=== PATIENT | female | born 1955 | race Caucasian/White ===

== ENCOUNTER → 2017-10-14 | Outpatient (CLI) | payer MEDICARE, MEDICAID ==
[~2017-10-14] MED LIST: ADULT LOW DOSE81 MG PO; ALDACTONE25 MG PO; AMITRIPTYLINE H25 M3 PO; ASPIRIN325 PO; ASPIRIN81 M2 PO; BELVIQ10 MG PO; BENAZEPRIL 10 M10 MG PO; BENAZEPRIL HCL10 MG PO; BENAZEPRIL HCL20 MG; BENAZEPRIL HCL40 MG PO; BENAZEPRIL HCL5 MG PO; CARVEDILOL12.5 MG; CARVEDILOL12.5 MG PO; CARVEDILOL25 MG PO; CELEXA40 MG PO; COLACE100 MG; COREG PO; CYMBALTA60 MG PO; DYAZIDE 37.5-21 EACH PO; EFFEXOR XR75 MG PO; FISH OIL 1,001000 MG PO; FISH OIL PO; FOLIC ACID1 MG PO; FUROSEMIDE 20 M20 MG PO; FUROSEMIDE 40 M40 MG PO; GABAPENTIN 100100 MG PO; GLUCOPHAGE1000 MG; GLUCOPHAGE1000 MG PO; GUAIFENESIN/COD10 M1 PO; HUMALOG100 UNIT/1; HYDRALAZINE 5050 MG; HYDROCHLOROTHIA25 M1 PO; HYDROCODON-ACE1 EAC5 PO; IMDUR 30 MG TAB30 M1 PO; INVOKANA100 MG PO; JANUMET 50-1,01 EACH PO; JANUVIA 50 MG T50 M1 PO; JANUVIA100 MG PO; K-DUR10 ME1; LANTUS SQ; LANTUS SUBQ; LASIX 40 MG TAB40 M1 PO; LASIX 40 MG TAB40 M2 PO; LEVAQUIN 250 M250 MG PO; LEVAQUIN 500 M500 M2 PO; LEVEMIR; LEVEMIR SUBQ; LIDODERM 5%1 PATC1 TOP; LIDODERM 5%1 PATC1 TRANSDERM; LIPITOR80 MG PO; LOSARTAN POTASS25 MG PO; LOVASTAT20 PO; LOVASTATIN 20 M20 MG PO; LYRICA 75 MG CA75 MG PO; MEVACOR 20 MG T20 MG PO; NAPROXEN DELAY500 M1 PO; NEURONTIN 300300 M1 PO; NEURONTIN600 MG PO; NITROGLYCERIN0.4 MG SUBLING; NITROGLYCERIN4.1 GM SPRAY; NITROQUICK0.3 MG; NITROQUICK0.4 MG SL; NORCO 10-325 T1 EACH PO; NORVASC10 MG; NORVASC10 MG PO; NOVOLIN N100 UNIT/1 SQ; NOVOLIN N100 UNIT/3 SQ; NOVOLIN R100 UNIT/3 SQ; NOVOLOG; NOVOLOG MI100 UNIT/2; NOVOLOG100 UNIT/1; NOVOLOG100 UNIT/1 SUBQ; OMEGA-31000 M1 PO; OMEPRAZOLE40 MG PO; OXYCODONE HCL5 M1; PARICALCITOL1 MCG PO; PERCOCET 7.5-31 EACH PO; PLAVIX 75 MG TA75 M1 PO; POTASSIUM; POTASSIUM20 PO; PREDNISONE 10 M10 M1 PO; PREDNISONE 10 M10 MG PO; PRILOSEC40 MG PO; PROTONIX40 M1 PO; PROZAC 20 MG20 M1; PROZAC 20 MG20 M1 PO; RANITIDINE 150150 MG PO; SAVELLA50 MG PO; VENTOLIN HFA 1818 GM INH; VITAMIN D2000 UNIT PO; VITAMIN D32000 UNI1 PO; VITAMIN D35000 UNI1 PO; ZANTAC 150MG T150 M1 PO; ZANTAC 150MG T150 MG PO; ZEMPLAR1 MCG PO; hydrocodone
== END ==
LOC: M.RAD 08:41
DX: J18.9 Pneumonia, unspecified organism (principal); J44.9 Chronic obstructive pulmonary disease, unspecified; I50.9 Heart failure, unspecified; J40 Bronchitis, not specified as acute or chronic; I25.10 Atherosclerotic heart disease of native coronary artery without angina pectoris; G47.33 Obstructive sleep apnea (adult) (pediatric); Z87.891 Personal history of nicotine dependence; Z98.890 Other specified postprocedural states

== ENCOUNTER → 2018-02-03 | Outpatient (CLI) | payer MEDICARE, MEDICAID ==
[~2018-02-03] VITALS: Ht 162.6 cm; Wt 102.1 kg
[2018-02-03 07:44] VITALS: BP 197/87
[2018-02-03 08:02] LABS: HEMOGLOBIN 14.2 gm/dL (12.0-15.0); MCH 30.7 pg (26.0-34.0); MCHC 33.1 g/dL (28.0-37.0); MCV 92.5 fL (80.0-100.0); MPV 10.1 fl. (7.2-11.1); RBC 4.65 mil/uL (4.20-5.00); RDW-CV 13.8 % (10.5-14.5); WBC 11.9 thou/uL (4.0-11.0)
[2018-02-03 08:11] LABS: ANION GAP 8 mmol/L (7-16); APTT 26.8 Seconds (25.0-31.3); BUN 30 mg/dL (7-18); CALCIUM 9.3 mg/dL (8.5-10.1); CHLORIDE 101 mmol/L (98-107); CO2 29 mmol/L (21-32); CREATININE 1.8 mg/dL (0.6-1.3); GLUCOSE 283 mg/dL (70-99); INR 1.1; POTASSIUM 4.3 mmol/L (3.5-5.1); PROTIME 10.5 Seconds (9.20-11.50); SODIUM 138 mmol/L (136-145)
[2018-02-03 08:15] LABS: ALBUMIN 3.5 g/dL (3.4-5.0); ALKALINE PHOSPHATASE 84 U/L (46-116); CHOLESTEROL 170 mg/dL (<200); HDL CHOLESTEROL 33 mg/dL (>40); LDL CHOLESTEROL 95 mg/dL (<100); SGOT 15 U/L (15-37); SGPT 25 U/L (30-65); TC:HDL 5.2 Ratio (Not establshd); TOTAL BILIRUBIN 0.4 mg/dL (<0.1-1.0); TOTAL PROTEIN 7.3 g/dL (6.4-8.2); TRIGLYCERIDE 212 mg/dL (<150); VLDL 42 mg/dL (<40)
[2018-02-03 08:21] LABS: SERUM ASSESSMENT Clear
[2018-02-03 10:25] VITALS: BP 163/50
[2018-02-03 10:38] VITALS: BP 165/58
--- NOTE | 2018-02-03 10:39 | EKG ---
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1955 Requested By: Juarez Rangel Order Number: [id number] Reading MD: Juarez Rangel Measurements Intervals [place] Rate: 66 P: 56 WV: 163 QRS: 1 QRSD: 117 T: 160 QT: 460 QTc: 482 Interpretive Statements Sinus rhythm Ventricular premature complex Probable left atrial enlargement LVH with secondary repolarization abnormality Consider inferior infarct Compared to ECG 09/22/2014 09:02:18 Ventricular premature complex(es) now present Left ventricular hypertrophy now present Early repolarization now present Myocardial infarct finding now present ST (T wave) deviation no longer present Possible ischemia no longer present Prolonged QT interval no longer present Electronically Signed On 02-03-2018 10:39:00 CDT by Juarez Rangel [email or web address] <ELECTRONICALLY SIGNED> By: Juarez Rangel MD, [facility] 02/03/18 1039 0834 0834 Juarez Rangel MD, [facility] /EPI
[2018-02-03 10:55] VITALS: BP 167/67
[2018-02-03 11:09] VITALS: BP 138/53
[2018-02-03 11:31] VITALS: BP 152/71
--- NOTE | 2018-02-03 15:05 | CARD ---
[address] [address] CARDIAC CATH REPORT Name: CHHAYA ALVARADO [id number] Admission: 02/03/18 Attend Phys: Juarez Rangel MD Discharge: Date of : 53 Report #: [id number] THIS REPORT FOR: //name// APPROVED REPORT Study performed: 02/03/2018 07:44:38 Patient Details Patient Status: Out-Patient Room #: The patient is a 62 year-old female Event Personnel uJarez Rangel Small Offset Printer, Snehal Sheth RN Equipment Operator/Laborer/Supervisor, Juan Santiago (R) Dona Diaz James Monitor Procedures Performed Left Heart Cath Coronaries, Bypass Grafts Procedure Narrative A 6fr Ultimum Sheath sheath was inserted into the Right Femoral Artery. Coronary angiography was performed using coronary diagnostic catheters. The right coronary system was accessed and visualized with a Diagnostic JR4 catheter. The left coronary system was accessed and visualized with a Diagnostic JL4 catheter. The left ventricle was accessed and visualized with a Diagnostic Angled Pigtail catheter. Closure device was deployed with a 6 Fr Mynx. The patient tolerated the procedure well and there were no complications associated with the procedure. Intraoperative Conscious Sedation Sedation start time: 9:19 Case end Time: 10:11 Fentanyl 25 mcg Versed 1 mg Fluoro Time: 30.3 minutes Dose: DAP 638646 cGycm2 2491 mGy Contrast Type and Amount: Visipaque 140 ml [place] Artery Percent Stenosis Grafts (Complete if Previous CABG=Yes: Percent Stenosis) FERRELL to lad widely patent, no stenosis, distally LAD is small to medium and has no significant stenosis SVG to RCA PDA , PLB jumps is ectatic but no significant stenosis, 30-40 % diffusely, distal RCA PDA and PLB [place] [address] CARDIAC CATH REPORT Name: JENNYCHHAYASTARR MORALES Room: [facility]#: [id number] Admission: 02/03/18 Attend Phys: Juarez Rangel MD Discharge: Date of : 53 Report #: [id number] disease 50-70% , but are small vessels Diagnostic Cath Left Main normal LAD Occluded mid body, competitive graft flow seen Diagonal 1 larger, has mid body 60-70% longer stenosis Diagonal 2 small,normal Circumflex small to medium sized, non dominant , mid 80% OM1 very small normal OM2 very small normal Right Coronary occluded proximally Left Ventriculography Left Ventriculography was not performed. Ejection Fraction was 50-55% based off patient's Nuclear Cardiac Stress Test. root aortography shows no graft to LCX or diagonal vessel, no aneurysm or dissection present, no AI Hemodynamics The aortic pressure is 156/59 mmHg with a mean of 93 mmHg. The left ventricular pressure is 150/9 mmHg with a mean of mmHg. The left ventricular end diastolic pressure is 19 mmHg. Conclusion 1. severe akhiok disease, occluded RCA and LAD 2. moderate to severe disease of ungrafted diagonal 60-70% 3. severe akhiok ,unprotected akhi[place] LCx, but vessel is nondominant and small to medium sized 4. Patent FERRELL to LAD 5. Patent SVG to PDA, PLB of RCA distally Recommend medical management for CAD Recommendations Smoking Cessation Aggressive Medical Therapy <ELECTRONICALLY SIGNED> By: Juarez Rangel MD, FACC 02/03/18 1505 1505 1505Juarez Rangel MD, FACC /INF
== END | disposition home or self-care (01) ==
LOC: M.CL 07:19
PROVIDERS: Internal Medicine Cardiovascular Disease
DX: I25.10 Atherosclerotic heart disease of native coronary artery without angina pectoris (principal); J44.9 Chronic obstructive pulmonary disease, unspecified; Z88.8 Allergy status to other drugs, medicaments and biological substances; Z79.82 Long term (current) use of aspirin; Z79.899 Other long term (current) drug therapy; Z79.01 Long term (current) use of anticoagulants

== ENCOUNTER 2018-03-06 10:01 | Inpatient (IN) | payer MEDICARE, MEDICAID ==
[~2018-03-06] VITALS: Ht 162.6 cm; Wt 102.1 kg
[~2018-03-06 10:01] MED LIST changes: -ZANTAC 150MG T150 MG PO
[2018-03-06] MEDS ORDERED: ZANTAC 150MG T150 MG PO (11:20)
[2018-03-06 11:37] LABS: ABSOLUTE BASOPHILS 0.1 thou/uL (0.0-0.2); ABSOLUTE EOSINOPHILS 0.2 thou/uL (0.0-0.7); ABSOLUTE LYMPHOCYTES 2.7 thou/uL (0.8-5.3); ABSOLUTE MONOCYTES 0.6 thou/uL (0.0-1.2); ABSOLUTE NEUTROPHILS 7.5 thou/uL (1.6-8.1); BASOPHILS 0.8 %; EOSINOPHILS 1.9 %; HEMATOCRIT 43.8 % (37.0-47.0); HEMOGLOBIN 14.5 gm/dL (12.0-15.0); LYMPHOCYTES 24.1 %; MCH 30.5 pg (26.0-34.0); MCHC 33.1 g/dL (28.0-37.0); MCV 92.3 fL (80.0-100.0); MONOCYTES 5.8 %; MPV 9.8 fl. (7.2-11.1); NUCLEATED RBCS 0 /100WBC; PLATELET COUNT* 192 thou/uL (150-400); POLYS 67.4 %; RBC 4.75 mil/uL (4.20-5.00); RDW-CV 14.3 % (10.5-14.5); WBC 11.1 thou/uL (4.0-11.0)
[2018-03-06 11:53] LABS: CALCIUM 9.4 mg/dL (8.5-10.1); CREATININE 1.8 mg/dL (0.6-1.3); POTASSIUM 4.9 mmol/L (3.5-5.1)
[2018-03-06 12:00] VITALS: BP 124/53
[2018-03-06 16:10] LABS: HEMATOCRIT 38.7 % (37.0-47.0); HEMOGLOBIN 12.9 gm/dL (12.0-15.0); MCH 30.8 pg (26.0-34.0); MCHC 33.3 g/dL (28.0-37.0); MCV 92.4 fL (80.0-100.0); MPV 9.9 fl. (7.2-11.1); RBC 4.19 mil/uL (4.20-5.00); RDW-CV 14.3 % (10.5-14.5); WBC 15.9 thou/uL (4.0-11.0)
[2018-03-06 16:14] LABS: POTASSIUM 4.7 mmol/L (3.5-5.1)
[2018-03-06 17:00] VITALS: BP 143/54
--- NOTE | 2018-03-06 17:34 | NUR ---
PATIENT ARRIVED TO ICU AT 1640. NO PAIN REPORTED, NO NAUSEA OR SHORTNESS OF AIR. AXOX4, ASSESSMENT CHARTED. FAMILY AT BEDSIDE. ALL QUESTIONS ANSWERED. ORIENTED TO ROOM AND CALL LIGHT. NO CONCERNS VOICED AT THIS TIME. EDUCATED PATIENT THAT SHE NEEDS TO URINATE WITHIN 8 HOURS POST SURGERY, INCISION LOOKS CLEAN, DRY AND INTACT. SITTING UP, EATING DINNER AT THIS TIME. BED IN LOWEST POSITION, SOLAR SALES AMBASSADOR IN PLACE, VITALS WNL.
[2018-03-06 21:00] VITALS: BP 131/60
[2018-03-06 22:00] VITALS: BP 123/53
[2018-03-07 02:00] VITALS: BP 127/61
[2018-03-07 04:00] VITALS: BP 122/58
[2018-03-07 05:32] LABS: HEMATOCRIT 37.8 % (37.0-47.0); HEMOGLOBIN 12.5 gm/dL (12.0-15.0); MCH 30.6 pg (26.0-34.0); MCV 92.7 fL (80.0-100.0); MPV 10.6 fl. (7.2-11.1); RBC 4.08 mil/uL (4.20-5.00); WBC 17.1 thou/uL (4.0-11.0)
[2018-03-07 05:50] LABS: ALBUMIN 2.9 g/dL (3.4-5.0); CALCIUM 8.3 mg/dL (8.5-10.1); CREATININE 1.7 mg/dL (0.6-1.3); POTASSIUM 5.3 mmol/L (3.5-5.1); TOTAL BILIRUBIN 0.4 mg/dL (<0.1-1.0); TOTAL PROTEIN 6.4 g/dL (6.4-8.2)
--- NOTE | 2018-03-07 07:17 | NUR ---
PATIENT PROGRESSING TOWARDS GOALS. DENIES PAIN OR N &V. PT LEFT CAROTID SITE WELL APPROXIMATED, MINIMAL SWELLING AND BRUSING PRESENT. PT WAS ABLE TO GET TO BEDSIDE COMMODE THIS A.M SHE DID VOID. ART LINE D/C. BP WNL. BED TO LOWEST POSITION, CALL LIGHT WITHIN RANGE. NO FURTHER COMPLAINTS AT THIS TIME.
[2018-03-07 09:09] VITALS: BP 143/56
[2018-03-07 09:11] VITALS: BP 143/56
[2018-03-07 11:17] VITALS: BP 143/56
[2018-03-07 12:00] VITALS: BP 120/50
--- NOTE | 2018-03-07 12:35 | NUR ---
CM SPOKE TO THE PATIENT TO DISCUSS HOME SITUATION, DISCHARGE PLANNING, AND TO INFORM OF THE ROLE OF CM. PATIENT ALERT, ORIENTED, AND INDEPENDENT WITH ADL'S. PATIENT RESIDES AT HOME WITH HER 17 YEAR OLD GRANDSON. 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 PATIENT HAS HOME 02 AND A CPAP FOR HOME USE, BUT COULD NOT RECALL WHO HER O2 PROVIDER IS ([facility]). PATIENT USES NO OTHER DME. RN IN-CHARGE OF PATIENT INFORMS THAT D/C ORDERS HAVE BEEN WRITTEN AND HH IS NEEDED. CM INFORMED THE PATIENT OF THIS INFO AND SHE AGREES TO HAVE HH SETUP. CM WILL REMAIN AVAILABLE TO ASSIST AND FOLLOW NEEDED.
--- NOTE | 2018-03-07 14:15 | NUR ---
PT DISCHARGED HOME WITH HOME HEALTH. HOME O2 2L NC PLACED PRIOR TO LEAVING. IV ACCESS X2 REMOVED. COPY OF DISCHARGE PAPERWORK AND A PRESCRIPTION FOR NORCO GIVEN TO PT WITH EXPLAINATION. PT VERBALIZD UNDERSTANDING. ESCORTED PER WHEELCHAIR PER THIS NURSE TO HER MOTHERS' VEHICLE.
--- NOTE | 2018-03-10 17:15 | OP ---
[facility] [address] [place] [address] OPERATIVE REPORT Name: CHHAYA ALVARADO Room: [address] IN M.R.#: [id number] Admission: 03/06/18 Attend Phys: Gabrielle Kent Discharge: 03/07/18 Date of : 53 Report #: [id number] THIS REPORT FOR: //name// CC: Zachery Isaac DATE OF SERVICE: 03/06/2018 PREOPERATIVE DIAGNOSIS: Severe left internal carotid artery stenosis. POSTOPERATIVE DIAGNOSIS: Severe left internal carotid artery stenosis. PROCEDURE: 1. Left carotid endarterectomy with patch angioplasty using bovine pericardial patch. 2. Intraoperative ultrasound with interpretation. FINDINGS ON ULTRASOUND: 1. Normal waveform velocity identified in the common and internal carotid arteries. 2. Patent flow identified in the external carotid artery on malik-scale imaging. 3. No flaps or defects identified in the posterior wall on malik-scale imaging. SURGEON: Zachery Hanks MD. V BELT INSPECTOR: None. ANESTHESIA: General. COMPLICATIONS: None. ESTIMATED BLOOD LOSS: 150 mL. SPECIMEN: Plaque. INDICATION FOR PROCEDURE: The patient is a very pleasant 63-year-old white female with severe left internal carotid artery stenosis on ultrasound. We plan to proceed with left carotid endarterectomy today. Informed consent was obtained from the patient with risks including but not limited to bleeding, infection, need for further surgery, pain, , heart attack, stroke, cranial nerve injury. She understood these risks and was agreeable to proceed. DESCRIPTION OF PROCEDURE: The patient was taken to the OR and placed in supine position. After adequate general anesthesia was initiated, timeout was performed. The patient's left neck and chest were prepped and draped in usual sterile fashion. The patient received appropriate preoperative antibiotics. [address] [address] OPERATIVE REPORT Name: LASHANDA ALVARADOSTARR PEREZE Room: [address]#: [id number] Admission: 03/06/18 Attend Phys: Gabrielle Kent Discharge: 03/07/18 Date of : 53 Report #: [id number] The patient was heparinized throughout the critical portion of procedure. I created a transverse incision in the patient's left neck. Sharp and blunt dissection carried down along the anterior border of sternocleidomastoid muscle. I divided the facial vein between ties and clips. I entered the carotid sheath. I controlled the common carotid artery as well as the branches of the internal and external carotid artery. I created a longitudinal arteriotomy in the common carotid artery onto the internal carotid artery. There was a severely stenotic plaque at the origin of the left internal carotid artery. I performed endarterectomy in a standard fashion using a [place] elevator and a pair of pickups. I took time to remove all the bits and pieces of plaque from posterior wall. I performed eversion endarterectomy of the external carotid artery. I got a feathered edge leading into the internal carotid artery. I used a bovine pericardial patch and a running 6-0 Prolene suture to close my arteriotomy. At the completion of the repair, there was adequate hemostasis and excellent blood flow into the internal carotid artery. I performed intraoperative ultrasound findings noted above. I corrected the heparin with protamine, controlled bleeding as needed with electrocautery, Derrek ties and clips, closed the wound in multiple layers using 2-0 Vicryl, 3-0 Vicryl and Stratafix for skin. Incision was dressed with Dermabond. The patient tolerated the procedure well and was taken alert and awake to recovery room in good condition. All needle and instrument counts were correct at the end the case. <ELECTRONICALLY SIGNED> By: Zachery Hanks MD 03/10/18 1715 1526 1647Zachery Hanks MD /nt
--- NOTE | 2018-03-10 22:13 | PATH ---
[facility] [address] [place] [address] PATHOLOGY RPT PROCEDURE Name: ESTRELLA ALVARADO Room: [address] IN .R.#: [id number] Admission: 03/06/18 Date of : 53 Discharge: 03/07/18 Report #: [id number] Path Case #: [id number] LCA Accession Number: [id number] . 01 Material submitted: . LEFT CAROTID PLAQUE . 01 Clinical history: . Left carotid artery stenosis . 02 Diagnosis: Plaque, "left carotid artery plaque": - Calcification and atherosclerosis. . (SHA:mml; 03/10/18) QLM/03/10/2018 . 02 Electronically signed: . Festus Chan MD, Pathologist NPI- [id number] . 01 Gross description: . Received in formalin labeled "Estrella Alvarado, left carotid plaque," are multiple segments of yellow-no, rubbery soft tissue with attached granular, dark brown material measuring 2.5 x 2.3 x 1.1 cm in aggregate dimensions. Sectioning reveals partially calcified cut surfaces. The specimen is submitted representatively in cassette A1, following decalcification. (DAC; 03/09/2018) XDC/XDC . 02 Pathologist provided ICD-10: I65.22 . 02 CPT . 296510, 985571 Performed at: [address], [place] [id number] MD Gerardo Ramon MD Phone: [phone] Performed at: [address] [address] [place], [place] [id number] MD Ric Mc MD Phone: [phone]
== END 2018-03-07 14:00 | disposition home health service (06) | DRG 37 ==
LOC: M.PRE 10:01 → M.ICU 10:57 → M.TBA 10:57 → M.PRE 11:08 → M.ICU 16:40
PROVIDERS: Internal Medicine; Surgery Vascular Surgery; ADMIT Internal Medicine
PROC: 03UL0JZ Supplement Left Internal Carotid Artery with Synthetic Substitute, Open Approach (ICD-10-PCS; principal; 2018-03-06)
PROC: 03CL0ZZ Extirpation of Matter from Left Internal Carotid Artery, Open Approach (ICD-10-PCS; principal; 2018-03-06)
DX: I65.22 Occlusion and stenosis of left carotid artery (principal); J96.20 Acute and chronic respiratory failure, unspecified whether with hypoxia or hypercapnia; I13.0 Hypertensive heart and chronic kidney disease with heart failure and stage 1 through stage 4 chronic kidney disease, or unspecified chronic kidney disease; E44.1 Mild protein-calorie malnutrition; E78.00 Pure hypercholesterolemia, unspecified; M79.7 Fibromyalgia; F17.210 Nicotine dependence, cigarettes, uncomplicated; E11.22 Type 2 diabetes mellitus with diabetic chronic kidney disease; N18.3 Chronic kidney disease, stage 3 (moderate); J44.9 Chronic obstructive pulmonary disease, unspecified; G47.33 Obstructive sleep apnea (adult) (pediatric); Z99.81 Dependence on supplemental oxygen; Z79.899 Other long term (current) drug therapy; Z79.4 Long term (current) use of insulin; Z95.1 Presence of aortocoronary bypass graft; Z90.49 Acquired absence of other specified parts of digestive tract; Z90.710 Acquired absence of both cervix and uterus; Z98.1 Arthrodesis status

== ENCOUNTER → 2018-07-01 | Outpatient (CLI) | payer OTHER, MEDICAID ==
[~2018-07-01] MED LIST changes: +ZANTAC 150MG T150 MG PO
== END ==
LOC: M.RAD 09:22
DX: Z12.31 Encounter for screening mammogram for malignant neoplasm of breast (principal)

== ENCOUNTER → 2018-09-09 | Outpatient (CLI) | payer OTHER, MEDICAID | LOC: M.ULTRA 12:39 | DX: I70.203 Unspecified atherosclerosis of native arteries of extremities, bilateral legs (principal); E11.621 Type 2 diabetes mellitus with foot ulcer; I10 Essential (primary) hypertension; E78.00 Pure hypercholesterolemia, unspecified; J44.9 Chronic obstructive pulmonary disease, unspecified; Z79.4 Long term (current) use of insulin ==

== ENCOUNTER → 2019-01-07 | Outpatient (CLI) | payer OTHER, MEDICAID ==
[~2019-01-07] VITALS: Ht 162.6 cm; Wt 99.8 kg
[~2019-01-07] MED LIST changes: -NORCO 10-325 T1 EACH PO; +NORCO 5-325 TA1 EACH PO; +SENNA PLUS TAB1 EACH PO; +VANCO 1 GR1 GM/250 M IVPB
[2019-01-07 07:33] LABS: HEMATOCRIT 41.6 % (37.0-47.0); HEMOGLOBIN 13.9 gm/dL (12.0-15.0); MCH 30.3 pg (26.0-34.0); MCHC 33.3 g/dL (28.0-37.0); MPV 10.1 fl. (7.2-11.1); RBC 4.57 mil/uL (4.20-5.00); WBC 12.8 thou/uL (4.0-11.0)
[2019-01-07 07:39] LABS: CALCIUM 9.7 mg/dL (8.5-10.1); CREATININE 1.6 mg/dL (0.6-1.3); POTASSIUM 4.9 mmol/L (3.5-5.1)
[2019-01-07 07:41] LABS: APTT 27.3 Seconds (25.0-31.3); PROTIME 10.7 Seconds (9.20-11.50)
[2019-01-07 07:43] VITALS: BP 156/52
[2019-01-07 10:07] VITALS: BP 129/70
[2019-01-07 10:24] VITALS: BP 186/71
[2019-01-07 10:57] VITALS: BP 154/60
--- NOTE | 2019-01-07 12:45 | OP ---
[address] [address] OPERATIVE REPORT Name: JENNYCHHAYA CARMEN Room: [facility]#: [id number] Admission: 01/07/19 Attend Phys: Zachery Hanks MD Discharge: Date of : 53 Report #: [id number] THIS REPORT FOR: //name// CC: Zachery Isaac DATE OF SERVICE: 01/07/2019 PREOPERATIVE DIAGNOSES: Left superficial femoral artery stenosis with claudication. POSTOPERATIVE DIAGNOSES: Left superficial femoral artery stenosis with claudication. PROCEDURES: 1. Aortogram runoff, left lower extremity. 2. Left SFA angioplasty. 3. Second-order vessel cannulation, left lower extremity. 4. Ultrasound guidance for arterial access for right common femoral artery, with image saved. FINDINGS: 1. Aorta and iliac artery were widely patent bilaterally. 2. Incidental SMA angiogram performed as catheter tip cannulated the SMA incidentally. SMA did not show any signs or evidence of stenosis or occlusion or aneurysmal dilatation. 3. Bilateral common femoral and profunda femoris arteries widely patent. 4. There is a 70% to 80% stenosis of left SFA origin. 5. There is 50% non-flow limiting stenosis within the mid portion of the SFA. 6. Left popliteal artery is widely patent with 3-vessel runoff to the left foot. 7. After angioplasty, the left SFA origin is widely patent, without evidence of stenosis. There was no residual stenosis or need for stenting at this time. COMPLICATIONS: None. ESTIMATED BLOOD LOSS: 10 mL. SPECIMENS: None. ANESTHESIA: Local sedation. Sedation was needed due to painful nature of the procedure. Please see the nurse's notes for details on sedation and duration, approximately 30 minutes sedation time heparinized throughout the procedure. INDICATIONS FOR PROCEDURE: The patient is a very pleasant 63-[place] [address] OPERATIVE REPORT Name: JENNYCHHAYASTARR MORALES Room: [facility]#: [id number] Admission: 01/07/19 Attend Phys: Zachery Hanks MD Discharge: Date of : 53 Report #: [id number] female who had non-healing ulcer of the right foot. She previously underwent right leg revascularization by my partner, . She has done well on her right side with healing of her ulcer. She continues to have claudication of her left leg and presents for elective angiogram today. There is evidence on ultrasound of SFA stenosis. Informed consent was obtained from the patient with risks including, but not limited to bleeding, infection, need for further surgery, pain, , heart attack, stroke and amputation. The patient understood these risks and was agreeable to proceed. DESCRIPTION OF PROCEDURE: The patient was taken to the angio suite and placed in the supine position. Timeout was performed. Sedation was initiated. Right groin was prepped and draped. I infused 10 mL of 1% lidocaine. Under ultrasound guidance, with an image saved, I cannulated the right common femoral artery without difficulty. I used Seldinger technique to exchange out for 6-[place] sheath. I passed an Omniflush catheter into the abdominal aorta. Omniflush catheter incidentally cannulated the superior mesenteric artery. Initial angiogram was a selective angiogram of this vessel, which did not show any disease. I pulled the catheter back out into the aorta. I performed aortogram with runoff; please see the findings above. I selectively cannulate the left iliac system and performed selective angiogram of the left leg. I carefully crossed the SFA origin stenosis and performed selective angiogram of the left leg. I then angioplastied the SFA origin with a 5-mm balloon. I heparinized the patient prior to this. At completion, imaging showed excellent result with resolution of the stenosis. I removed my sheath and placed a 6-[place] Angio-Seal without complication. There was no bleeding or hematoma. The patient tolerated the procedure well and was taken alert and awake to recovery room in good condition. All needle and instrument counts were correct at the end the case. <ELECTRONICALLY SIGNED> By: Dakota Marks DO 01/07/19 1245 0957 1033Zachery Hanks MD /alona
== END | disposition home or self-care (01) ==
LOC: M.INT 06:41
PROVIDERS: Surgery Vascular Surgery
DX: I70.212 Atherosclerosis of native arteries of extremities with intermittent claudication, left leg (principal); I12.9 Hypertensive chronic kidney disease with stage 1 through stage 4 chronic kidney disease, or unspecified chronic kidney disease; E11.22 Type 2 diabetes mellitus with diabetic chronic kidney disease; N18.9 Chronic kidney disease, unspecified; I25.10 Atherosclerotic heart disease of native coronary artery without angina pectoris; J44.9 Chronic obstructive pulmonary disease, unspecified; E78.5 Hyperlipidemia, unspecified; F17.210 Nicotine dependence, cigarettes, uncomplicated; Z90.49 Acquired absence of other specified parts of digestive tract; Z98.51 Tubal ligation status; Z98.890 Other specified postprocedural states; Z90.710 Acquired absence of both cervix and uterus; Z79.899 Other long term (current) drug therapy; Z79.4 Long term (current) use of insulin

== ENCOUNTER → 2019-06-23 | Outpatient (CLI) | payer OTHER, MEDICAID ==
[~2019-06-23] MED LIST changes: +FELODIPINE 5 MG5 M1 PO; +HYDRALAZINE 5050 MG PO; +IPRAT-ALBUT 0.5-3 ML INH; +NEBULIZER MISCELL; +NICOTINE TRANSD21 M1 TRANSDERM; -NORCO 5-325 TA1 EACH PO; +NORCO PO; +PULMICORT0.5 MG/2 M INH; +SINGULAIR 10 MG10 M1 PO; +TESSALON PERLE100 MG PO; +TRADJENTA5 MG PO; +TRULICITY0.75 MG/0. SUBQ; +ZANAFLEX4 M2 PO
== END ==
LOC: M.RAD 09:21
DX: J18.9 Pneumonia, unspecified organism (principal); J98.4 Other disorders of lung; I11.9 Hypertensive heart disease without heart failure; Z95.5 Presence of coronary angioplasty implant and graft

== ENCOUNTER 2019-06-26 20:15 | Inpatient (IN) | payer OTHER, MEDICAID ==
[~2019-06-26] VITALS: Ht 162.6 cm; Wt 118.8 kg
[~2019-06-26 20:15] MED LIST changes: -FELODIPINE 5 MG5 M1 PO; -HYDRALAZINE 5050 MG PO; -IPRAT-ALBUT 0.5-3 ML INH; -NEBULIZER MISCELL; -NICOTINE TRANSD21 M1 TRANSDERM; -PULMICORT0.5 MG/2 M INH; -SINGULAIR 10 MG10 M1 PO; -TESSALON PERLE100 MG PO; -TRADJENTA5 MG PO; -TRULICITY0.75 MG/0. SUBQ; -ZANAFLEX4 M2 PO
[2019-06-26 20:27] VITALS: BP 135/63
[2019-06-26] MEDS ORDERED: ZANAFLEX4 M2 PO (20:57)
[2019-06-26] MEDS ORDERED: TRULICITY0.75 MG/0. SUBQ (20:59)
[2019-06-26] MEDS ORDERED: TRADJENTA5 MG PO (20:59)
[2019-06-26 21:08] LABS: ABSOLUTE BASOPHILS 0.1 thou/uL (0.0-0.2); ABSOLUTE EOSINOPHILS 0.3 thou/uL (0.0-0.7); ABSOLUTE LYMPHOCYTES 2.1 thou/uL (0.8-5.3); ABSOLUTE MONOCYTES 1.2 thou/uL (0.0-1.2); ABSOLUTE NEUTROPHILS 11.7 thou/uL (1.6-8.1); BASOPHILS 0.4 %; EOSINOPHILS 1.8 %; HEMATOCRIT 37.9 % (37.0-47.0); HEMOGLOBIN 12.6 gm/dL (12.0-15.0); LYMPHOCYTES 13.9 %; MCH 30.3 pg (26.0-34.0); MCHC 33.3 g/dL (28.0-37.0); MONOCYTES 7.8 %; MPV 9.5 fl. (7.2-11.1); NUCLEATED RBCS 0 /100WBC; PLATELET COUNT* 215 thou/uL (150-400); POLYS 76.1 %; RBC 4.16 mil/uL (4.20-5.00); WBC 15.4 thou/uL (4.0-11.0)
[2019-06-26 21:16] LABS: CALCIUM 9.2 mg/dL (8.5-10.1); CREATININE 1.9 mg/dL (0.6-1.3); POTASSIUM 4.5 mmol/L (3.5-5.1)
[2019-06-26 21:21] LABS: ALBUMIN 3.1 g/dL (3.4-5.0); MAGNESIUM 2.3 mg/dL (1.8-2.4); TOTAL BILIRUBIN 0.4 mg/dL (<0.1-1.0); TOTAL PROTEIN 7.1 g/dL (6.4-8.2)
[2019-06-26 21:33] LABS: BE 1.1 mmol/L (-2 to +3); PO2 66.5 mmHg (75.0-100.0); pH 7.314 (7.340-7.450)
[2019-06-26 21:35] LABS: PCO2 57.2 mmHg (35.0-45.0)
[2019-06-26 22:04] LABS: INR 1.1; PROTIME 10.9 Seconds (9.20-11.50)
--- NOTE | 2019-06-26 23:09 | NUR ---
PT BEING ADMITTED TO TELEMETRY UNIT REPORT GIVEN TO TAMARA COWAN.
[2019-06-26 23:20] VITALS: BP 162/55
[2019-06-26 23:30] VITALS: BP 162/55
--- NOTE | 2019-06-27 00:33 | NUR ---
PT ADMITTED TO FLOOR AT 2320 FOR PNEUMONIA. PT REPORTS BEING TREATED BY PCP FOR THE PAST WEEK FOR PNEUMONIA. PT BROUGHT TO FLOOR ON BIPAP FOR ELEVATED CO2 RESULT IN ED. PT ALLOWED TO GO TO RESTROOM ON O2 AT 4 LITERS THEN RETURN TO BIPAP. PT ACCOMPANIED BY SON AND DAUGHTER. PT ORIENTED TO ROOM, BED CONTROLS AND CALL LIGHT.
[2019-06-27 03:45] VITALS: BP 157/86
[2019-06-27 04:57] LABS: PO2 89.8 mmHg (75.0-100.0)
[2019-06-27 04:59] LABS: pH 7.282 (7.340-7.450)
[2019-06-27 05:00] LABS: PCO2 64.4 mmHg (35.0-45.0)
[2019-06-27 08:00] VITALS: BP 168/56
[2019-06-27 08:10] LABS: BE -2.3 mmol/L (-2 to +3); PO2 77.1 mmHg (75.0-100.0); pH 7.302 (7.340-7.450)
[2019-06-27 08:16] LABS: PCO2 50.9 mmHg (35.0-45.0)
[2019-06-27 12:00] VITALS: BP 151/45
[2019-06-27 16:00] VITALS: BP 129/58
--- NOTE | 2019-06-27 19:09 | NUR ---
ASSUMED PT CARE AT 0730, FULL ASSESMENT DONE CHARTED. PT A/O X4, DENIES PAIN, ON BIPAP THIS AM, CHANGED TO 4L NC. PT TOLERATING WELL.WEARS BIPAP WHILE SLEEPING. UP AD BRENDA, VSS, BS ELEVATED THROUGH THIS SHIFT, SLIDING SCALE INCREASED THIS EVENING. PT FREQUENLY REQUESTS MORE LIQUIDS TO DRINK. PT EDUCATED ON NOT DRINKING TOO MUCH FLUID, VERBALIZED UNDERSTANDING. NICOTINE PATCH STARTED. PT USES CALL LIGHT APPROPRIATLY. WILL CONTINUE TO MONITOR.
[2019-06-27 20:00] VITALS: BP 125/43
[2019-06-28 01:20] VITALS: BP 161/52
[2019-06-28 04:00] VITALS: BP 149/67
--- NOTE | 2019-06-28 04:43 | NUR ---
ASSUMED PT CARE AT APPROX 1930. PT IS AWAKE AND ORIENTED X4. VSS ON 3-4L OF O2/NC, PT IS ON BIPAP @HS. NO DESATURATIONS NOTED. PT C/O DRY COUGH AND ITCHY THROAT, ANTITUSSIVE MEDS GIVEN PER OCT. PT VERBALIZED RELIEF. PT IS ABLE TO SLEEP MOST OF THE NIGHT. CALL LIGHT WITHIN REACH. HOURLY ROUNDING DONE FOR SAFETY.
[2019-06-28 08:38] VITALS: BP 169/67
[2019-06-28 10:59] LABS: INFLUENZA A ANTIGEN Negative (Negative); INFLUENZA B ANTIGEN Negative (Negative)
[2019-06-28 12:00] VITALS: BP 174/54
--- NOTE | 2019-06-28 12:43 | 2DMMODE ---
[place] [address] 2 D/M-MODE ECHOCARDIOGRAM Name: CHHAYA ALVARADO Room: [address] ADM IN [facility]#: [id number] Admission: 06/26/19 Attend Phys: Marco Estrada Discharge: Date of : 53 Date of Service: 06/28/19 1243 Report #: [id number] THIS REPORT FOR: //name// APPROVED REPORT Study performed: 06/28/2019 10:12:24 EXAM: Comprehensive 2D, Doppler, and color-flow Echocardiogram Patient Location: In-Patient Room #: 202 BSA: 2.11 HR: 81 bpm BP: 169/67 mmHg Other Information Study Quality: Fair Indications Elevated Troponin 2D Dimensions IVSd: 16.98 (7-11mm) LVOT Diam: 20.39 (18-24mm) LVDd: 47.76 mm PWd: 12.53 (7-11mm) Ascending Ao: 26.87 (22-36mm) LVDs: 27.90 (25-40mm) Aortic Root: 27.16 mm Volumes Left Atrial Volume (Systole) LA ESV Index: 35.00 mL/m2 Aortic Valve AoV Peak Morales.: 2.17 m/s AO Peak Gr.: 18.83 mmHg LVOT Max P.97 mmHg AO Mean Gr.: 9.22 mmHg LVOT Mean P.64 mmHg LVOT Max V: 1.11 m/s AO V2 VTI: 41.44 cm LVOT Mean V: 0.75 m/s XOCHILT (VTI): 1.85 cm2 LVOT V1 VTI: 23.50 cm Mitral Valve MV Peak Gr.: 13.44 mmHg MV Mean Gr.: 6.08 mmHg E/A Ratio: 1.13 MV Decel. Time: 273.50 ms MV E Max Morales.: 1.45 m/[place] [address] 2 D/M-MODE ECHOCARDIOGRAM Name: CHHAYA ALVARADO Room: [address] IN [facility].#: [id number] Admission: 06/26/19 Attend Phys: Marco Estrada Discharge: Date of : 53 Date of Service: 06/28/19 1243 Report #: [id number] MV PHT: 79.31 ms MVA (PHT): 2.77 cm2 TDI E/Lateral E': 14.50 E/Medial E': 24.17 Medial E' Morales.: 0.06 m/s Lateral E' Morales.: 0.10 m/s Pulmonary Valve PV Peak Morales.: 1.31 m/s PV Peak Gr.: 6.84 mmHg Tricuspid Valve RAP Estimate: 5.00 mmHg TR Peak Gr.: 26.60 mmHg RVSP: 31.60 mmHg PA Pressure: 31.60 mmHg Left Ventricle The left ventricle is normal size. There is normal LV segmental wall motion. Mild concentric left ventricular hypertrophy. Left ventricular systolic function is normal. The left ventricular ejection fraction is within the normal range. LVEF is 60-65%. The left ventricular diastolic function is normal. Right Ventricle The right ventricle is normal size. The right ventricular systolic function is normal. Atria Left atrium is mildly dilated. The right atrium size is normal. Aortic Valve The aortic valve is normal in structure. No aortic regurgitation is present. There is no aortic valvular stenosis. Mitral Valve Mild mitral annular calcification. The mitral valve is mildly thickened. Mild mitral regurgitation. Mild to moderate mitral stenosis. Tricuspid Valve The tricuspid valve is normal in structure. Mild tricuspid regurgitation. estimated pa pressure 30 mm Hg Pulmonic Valve The pulmonary valve is normal in structure. [place] [address] 2 D/M-MODE ECHOCARDIOGRAM Name: CHHAYA ALVARADO Room: [address] IN [facility]#: [id number] Admission: 06/26/19 Attend Phys: Marco Estrada Discharge: Date of : 53 Date of Service: 06/28/19 1243 Report #: [id number] valvular regurgitation. Great Vessels The aortic root is normal in size. IVC is normal in size and collapses >50% with inspiration. Pericardium There is no pericardial effusion. <Conclusion> Mild concentric left ventricular hypertrophy. LVEF is 60-65%. Left atrium is mildly dilated. Mild mitral regurgitation. Mild tricuspid regurgitation. estimated pa pressure 30 mm Hg <ELECTRONICALLY SIGNED> By: Konrad Paulino MD, FACC 06/28/19 1243 1243 1243 Konrad Paulino MD, FACC /INF
--- NOTE | 2019-06-28 12:54 | NUR ---
PT A/O. TELE TRACKING SR WITH FREQUENT PVC'S AND ALL VSS ON 3L (BASELINE). PT STATES SHE WORE BIPAP MOST OF NIGHT. PT DENIES CP, STATES SOA IS NEAR BASELINE. C/O HEADACHE- MEDICATED PER EMAR. EDUCATED ON SAFETY AND PLAN OF CARE. PLEASE SEE ASSESSMENT FOR ADDITIONAL INFORMATION. WILL CONT TO MONITOR
[2019-06-28 13:20] LABS: CALCIUM 9.5 mg/dL (8.5-10.1); MAGNESIUM 2.7 mg/dL (1.8-2.4)
--- NOTE | 2019-06-28 13:43 | NUR ---
Nutrition: Pt admitted with PNA. H/o smoking, DM II, CKD III, HTN, HLD, PAD, CAD. Albumin 3.1, BUN 73, cr 3, BG 300s. RX: solumedrol, insulin, O2. CHO controlled diet ordered. Wt: 242#. Altered nutrition-related lab values R/T BG AEB labs above. GOALS: continue CHO controlled diet, better BG control, gradual wt loss. Mild to low risk.
--- NOTE | 2019-06-28 14:31 | NUR ---
Pt is A&O. Resides at home with grandson. Independent. Pt uses an [employer] through [employer] and states that she also has a cpap, she believes through [facility]. Pt uses a walker or wc for mobility. No hx of HH or SNF. CM spoke with shoaib Viveros dc within the next few days with HH. When HEBER discussed HH with Pt, Pt declined stating "my dog won't allow me to have anyone in the house." Goal is home. Following.
--- NOTE | 2019-06-28 15:04 | EKG ---
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1955 Requested By: Jayda Kelly Order Number: [id number] Chandrika MD: Konrad Paulino Measurements Intervals [place] Rate: 77 P: 57 MT: 158 QRS: 0 QRSD: 116 T: 182 QT: 392 QTc: 444 Interpretive Statements Sinus rhythm artifact noted Ventricular trigeminy Left atrial enlargement Nonspecific intraventricular conduction delay Anterior infarct Compared to ECG 11/11/2018 10:02:21 Ventricular premature complex(es) now present Electronically Signed On 06-28-2019 15:04:22 SALES EXPERT HOME THEATER by Konrad Paulino [email or web address] <ELECTRONICALLY SIGNED> By: Konrad Paulino MD, FAC 06/28/19 1504 24 24 Konrad Paulino MD, [facility] /EPI
--- NOTE | 2019-06-28 15:05 | EKG ---
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: : 1955 Requested By: Jayda Kelly Order Number: [id number] Chandrika MD: Konrad Paulino Measurements Intervals [place] Rate: 73 P: 77 [place]: 156 QRS: -6 QRSD: 112 T: 173 QT: 405 QTc: 447 Interpretive Statements Sinus rhythm Multiform ventricular premature complexes Left atrial enlargement Consider anterior infarct Abnormal T, consider ischemia, lateral leads Baseline wander in lead(s) V1 Electronically Signed On 06-28-2019 15:04:56 QUALITY ASSURANCE SUPERVISOR CHASSIS by Konrad Paulino [email or web address] <ELECTRONICALLY SIGNED> By: Konrad Paulino MD, [facility] 06/28/19 1504 32 32 Konrad Paulino MD, [facility] /EPI
[2019-06-28 16:00] VITALS: BP 116/62
--- NOTE | 2019-06-28 16:03 | CON ---
[facility] [address] [place] [address] CONSULTATION Name: JENNYCHHAYA CARMEN Room: [address] IN M.R.#: [id number] Admission: 06/26/19 Attend Phys: Gabrielle Kent Discharge: Date of : 53 Report #: [id number] THIS REPORT FOR: //name// CC: Demar Fu DATE OF SERVICE: 06/28/2019 CARDIOLOGY CONSULTATION HISTORY OF PRESENT ILLNESS: The patient is a 64-year-old single white female who I was asked to see in the hospital today after she complained of shortness of breath. The history was obtained from the patient. She apparently had triple vessel coronary artery bypass surgery at [place], [place] in 2010. She states at that time she has been having chest pressure. She had no further chest pressure since that time. She does have a history of PAD and has had previous stents placed in both her right and left leg, both here at [place] and at [facility] for PAD. She is not very active. She uses a walker. She has a history of smoking up to 1 pack of cigarettes a day for over 20 years. She has a chronic cough. She states that, 2 days ago, she had increasing shortness of breath and a cough and edema. She came to the Emergency Room and was admitted. I was asked to see her for further evaluation and treatment. Denied palpitation or syncope. PAST MEDICAL HISTORY: Otherwise, she has had hysterectomy, cholecystectomy, back surgery, hypertension, diabetes, hyperlipidemia and sleep apnea. CURRENT MEDICATIONS: Consist of Lasix, Trulicity, Tradjenta, albuterol inhaler, Lyrica, Plavix, Invokana, Zantac, Lipitor, losartan, Cymbalta, Effexor, insulin. ALLERGIES: She has no known drug allergies. FAMILY HISTORY: Negative for heart disease. SOCIAL HISTORY: She is from her . Lives in [place], [place]. Smokes a pack of cigarettes a day. No alcohol abuse. REVIEW OF SYSTEMS: She is 5 feet 4 inches and weighs 225 pounds. No history of stroke. She has a nebulizer at home, chronic kidney disease. No liver disease, no cancer. No chronic skin condition. PHYSICAL EXAMINATION: GENERAL: Revealed an elderly female sitting in a chair. She appeared in no acute distress. VITAL SIGNS: She had a blood pressure of 140/70, pulse is 80, [place] [address] CONSULTATION Name: CHHAYA ALVARADO Room: [address] IN [facility].#: [id number] Admission: 06/26/19 Attend Phys: Gabrielle Kent Discharge: Date of : 53 Report #: [id number] HEENT: She was anicteric. Conjunctivae pink. Mucous members moist. NECK: Veins are difficult to assess due to obesity. No carotid bruits. CHEST: Distant breath sounds. CARDIOVASCULAR: Regular rate and rhythm. ABDOMEN: Obese. EXTREMITIES: Had no pitting edema. SKIN: Cool and dry. NEUROLOGIC: Nonfocal. LABORATORY DATA: Her ECG shows a sinus rhythm, occasional PVC in a pattern of trigeminy. Her workup; she actually had an echocardiogram here in 2014 for shortness of breath that showed ejection fraction of 60% and no significant valvular abnormalities. She actually had a nuclear stress test a year ago in 12/2017 because of her history of coronary artery disease, using Lexiscan that showed a moderate-sized apical defect consistent with ischemia. Left ventricular function overall appeared preserved. She had portable chest x-ray done that showed right lower lobe pneumonia. She had a CT scan of the chest performed yesterday that showed evidence of pneumonia. She had previous carotid Doppler study done a year ago in 2017 that showed left carotid stenosis. BUN 43; creatinine 1.9, has been as high as 2.4 in the past. Liver function studies were normal. Troponin 0.33, although it was actually 0.26 in 2014. BNP 5346. White blood cell count 15.4, hemoglobin 12.6. IMPRESSION AND RECOMMENDATION: 1. Pneumonia. 2. Chronic obstructive pulmonary disease. 3. Tobacco abuse. 4. Coronary artery disease. No recent angina. The patient noted to have non-myocardial infarction related elevation of troponin that has been chronic. I would not recommend cardiac catheterization at this time. 5. Peripheral arterial disease. The patient is on Plavix. 6. Obesity. 7. Sleep apnea. 8. Carotid stenosis. <ELECTRONICALLY SIGNED> By: Konrad Paulino MD, [facility] 06/28/19 1603 1149 [id number] Paulino MD, FACC /nt
--- NOTE | 2019-06-28 16:33 | EKG ---
[place] [address] ELECTROCARDIOGRAM REPORT Name: CHHAYA ALVARADO Room: [address] ADM IN M.R.#: [id number] Admission: 06/26/19 Attend Phys: Gabrielle Kent Discharge: Date of : 53 Report #: [id number] THIS REPORT FOR: //name// [facility] Test Date: 2019-06-28 Test Time: 14:28:21 Pat Name: CHHAYA ALVARADO Department: Room: [address] Gender: F Computer Programmer: : 1955 Requested By: Marco Estrada Order Number: [id number] Reading MD: Konrad Paulino Measurements Intervals [place] Rate: 63 P: 76 CT: 162 QRS: 2 QRSD: 120 T: 169 QT: 407 QTc: 417 Interpretive Statements Sinus rhythm anterior infarction, old Multiple ventricular premature complexes Consider right atrial enlargement Nonspecific intraventricular conduction delay Abnormal T, consider ischemia, lateral leads Compared to ECG 06/26/2019 20:33:55 T-wave abnormality still present Electronically Signed On 06-28-2019 16:33:28 BOX ESTIMATOR by Konrad Paulino [email or web address] <ELECTRONICALLY SIGNED> By: Konrad Paulino MD, FAC 06/28/19 1633 1428 1428 Konrad Paulino MD, [facility] /EPI
[2019-06-28 20:00] VITALS: BP 142/48
[2019-06-29] VITALS (7 sets, daily range): BP systolic 131–141; BP diastolic 42–84
--- NOTE | 2019-06-29 04:20 | NUR ---
ASSUMED PT CARE AT APPROX 1930. PT IS AWAKE AND ORIENTED X4. VSS ON 3L OF O2/NC, NO DESATURATIONS NOTED. SCHOOL COOK IN PLACE TRACING TRIGEMINY. PT IS ABLE TO WEAR THE BIPAP MOST OF THE NIGHT. CALL LIGHT WITHIN REACH. HOURLY ROUNDING DONE FOR PT SAFETY.
[2019-06-29 09:08] LABS: CALCIUM 9.2 mg/dL (8.5-10.1)
[2019-06-29 09:09] LABS: CREATININE 4.5 mg/dL (0.6-1.3)
[2019-06-29 09:11] LABS: POTASSIUM 6.5 mmol/L (3.5-5.1)
[2019-06-29 12:30] LABS: ALBUMIN 3.2 g/dL (3.4-5.0); CALCIUM 9.2 mg/dL (8.5-10.1); CREATININE 4.5 mg/dL (0.6-1.3); POTASSIUM 5.9 mmol/L (3.5-5.1); TOTAL BILIRUBIN 0.4 mg/dL (<0.1-1.0); TOTAL PROTEIN 6.9 g/dL (6.4-8.2)
--- NOTE | 2019-06-29 15:04 | NUR ---
PT A/O. TELE TRACKING SR WITH PVC'S AND ALL VSS ON 3L. DENIES CP, STATES SOA AT BASELINE. DR MARSHALL NOTIFIED OF KIDNEY FUNCTION THIS AM, ORDERS FOR STAT BMP RESULTED IN CRITICAL POTASSIUM- DR MARSHALL NOTIFIED AGAIN- SEE ORDERS. RENAL CONSULTED AND PROVIDED ORDERS WELL, INCLUDING DOYLE AND MEDICATIONS FOR LOWERING POTASSIUM. RENAL NOTIFIED OF SERIAL POTASSIUM LAB VALUES AND LOW URINE OUTPUT. PT TOLD THIS NURSE THAT SHE FELL OVERNIGHT IN BATHROOM. PT STATES SHE SLOWLY SLID TO FLOOR LANDING ON HER RIGHT KNEE AND THAT SHE DID NOT HIT HEAD OR LOOSE CONSCIOUSNESS- DR MARSHALL NOTIFIED OF THIS WELL THIS AM. PLEASE SEE ASSESSMENT FOR ADDITIONAL INFORMATION.
--- NOTE | 2019-06-29 15:22 | EKG ---
[place] [address] ELECTROCARDIOGRAM REPORT Name: CHHAYA ALVARADO Room: [address] ADM IN M.R.#: [id number] Admission: 06/26/19 Attend Phys: Gabrielle Kent Discharge: Date of : 53 Report #: [id number] THIS REPORT FOR: //name// [facility] Test Date: 2019-06-29 Test Time: 14:28:21 Pat Name: CHHAYA ALVARADO Department: Room: [address] Gender: F Assistant Professor Of Economics: : 1955 Requested By: Cheryl Mckenna Order Number: [id number] Reading MD: Sacha Castellon Measurements Intervals [place] Rate: 59 P: RI: QRS: -10 QRSD: 116 T: 165 QT: 401 QTc: 398 Interpretive Statements Junctional rhythm with premature atrial contractions Multiple ventricular premature complexes Anteroseptal infarct, old, possible Abnormal T, consider ischemia, lateral leads Minimal ST elevation, anterior leads Compared to ECG 06/28/2019 14:28:21 ST (T wave) deviation now present Sinus rhythm no longer present T-wave abnormality still present Possible ischemia still present Electronically Signed On 06-29-2019 15:21:52 BUILDER OPERATOR by Sacha Castellon [email or web address] <ELECTRONICALLY SIGNED> By: Sacha Castellon MD, FACC 06/29/19 1521 1428 1428 Sacha Castellon MD, FAC /EPI
[2019-06-29 17:03] LABS: HEMATOCRIT 34.6 % (37.0-47.0); HEMOGLOBIN 11.1 gm/dL (12.0-15.0); MCHC 32.2 g/dL (28.0-37.0); MCV 93.3 fL (80.0-100.0); MPV 10.7 fl. (7.2-11.1); NUCLEATED RBCS 0 /100WBC; PLATELET COUNT* 218 thou/uL (150-400); RBC 3.71 mil/uL (4.20-5.00); RDW-CV 15.4 % (10.5-14.5); WBC 20.2 thou/uL (4.0-11.0)
[2019-06-29 17:23] LABS: ABSOLUTE LYMPHOCYTES 0.8 thou/uL (0.8-5.3); ABSOLUTE MONOCYTES 0.6 thou/uL (0.0-1.2); ABSOLUTE NEUTROPHILS 18.8 thou/uL (1.6-8.1)
[2019-06-29 17:24] LABS: BURR CELLS 1+; GIANT PLATELETS FEW
[2019-06-29 17:25] LABS: MICROCYTES 1+; TOXIC GRANULATION 1+
[2019-06-29 17:26] LABS: PLATELET ESTIMATE ADEQUATE
[2019-06-29 19:08] LABS: BE -6.5 mmol/L (-2 to +3)
[2019-06-29 19:11] LABS: PCO2 65.6 mmHg (35.0-45.0); PO2 51.2 mmHg (75.0-100.0); pH 7.162 (7.340-7.450)
[2019-06-29 21:03] LABS: BE -2.8 mmol/L (-2 to +3); PO2 98.5 mmHg (75.0-100.0)
[2019-06-29 21:05] LABS: PCO2 58.6 mmHg (35.0-45.0); pH 7.252 (7.340-7.450)
[2019-06-30] VITALS: BP 128/67
[2019-06-30 04:00] VITALS: BP 149/52
[2019-06-30 04:43] LABS: HEMATOCRIT 32.6 % (37.0-47.0); HEMOGLOBIN 10.5 gm/dL (12.0-15.0); MCH 29.4 pg (26.0-34.0); MCHC 32.2 g/dL (28.0-37.0); MCV 91.2 fL (80.0-100.0); MPV 9.9 fl. (7.2-11.1); RBC 3.58 mil/uL (4.20-5.00); RDW-CV 15.2 % (10.5-14.5); WBC 20.2 thou/uL (4.0-11.0)
[2019-06-30 05:11] LABS: ALBUMIN 3.1 g/dL (3.4-5.0); CALCIUM 8.3 mg/dL (8.5-10.1); CREATININE 4.3 mg/dL (0.6-1.3); POTASSIUM 5.3 mmol/L (3.5-5.1); TOTAL BILIRUBIN 0.3 mg/dL (<0.1-1.0); TOTAL PROTEIN 6.3 g/dL (6.4-8.2)
[2019-06-30 06:03] LABS: URINE BLOOD 3+ (Negative); URINE CLARITY SL CLOUDY; URINE COLOR DARK YELLOW; URINE GLUCOSE-RANDOM NEGATIVE (Negative); URINE KETONES TRACE (Negative); URINE LEUKOCYTES-REFLEX 1+ (Negative); URINE PROTEIN 2+ (Negative); URINE SPECIFIC GRAVITY >= 1.030 (1.005-1.030); URINE UROBILINOGEN 0.2 E.U./dl (0.2-1.0)
--- NOTE | 2019-06-30 06:03 | NUR ---
ASSUMED PT CARE AT APPROX 1930. PT IS AWAKE AND ORIENTED X4. PUBLIC AID ELIGIBILITY ASSISTANT IS TRACING SR w/ PVCs/ TRIGEMINY. PT IS ON THE BIPAP: FiO2 50%, IPAP 12, EPAP 6,PIP 13 NO DESATURATIONS NOTED. CRITICAL pCO2 OF 58.6 and pH OF 7.252 (AFTER 1HR ON THE BIPAP) COMMUNICATED TO DR. WILLIAMSON. NO NEW ORDERS RECEIVED. HEMODIALYSIS WAS WELL TOLERATED. NO DETERIORATIONS NOTED THROUGHOUT THIS SHIFT. PT REMAINED OLIGURIC. PT IS CLOSELY MONITORED.
[2019-06-30 06:11] LABS: ICTOTEST (BILI CONFIRMATORY) Negative (Negative); URINE BILIRUBIN 1+ (Negative); URINE NITRITE-REFLEX POSITIVE (Negative)
[2019-06-30 06:12] LABS: SQUAMOUS 0-3 Few /LPF (0-3); URINE WBC-REFLEX 6-15 Few /HPF (0-5)
[2019-06-30 06:13] LABS: BACTERIA-REFLEX 1-9 Few /HPF (None Seen); CASTS None Seen /LPF (None Seen); CRYSTALS None Seen /LPF (None Seen); MUCUS 0-3 Light strn/LPF (None Seen); URINE RBC >20 Many /HPF (0-2)
[2019-06-30 08:00] VITALS: BP 136/65
--- NOTE | 2019-06-30 12:07 | NUR ---
Pt having dialysis today. Following.
--- NOTE | 2019-06-30 12:13 | NUR ---
ASSUMED CARE OF PATIENT THIS AM AT 0730. PATIENT IS ALERT AND ORIENTED X 4. SHE DENIES PAIN THIS AM. PATIENT TAKEN OFF BIPAP AND PLACED ON 02 AT 4 LITERS. PATIENT TAKEN TO DIALYSIS PER BED. TELE SHOWS SR WITH TRIGEMINY PVCS. DOYLE IS TO DD. URINE OUTPUT IS MINIMAL.
[2019-06-30 16:02] VITALS: BP 104/55
--- NOTE | 2019-06-30 16:47 | EKG ---
[place] [address] ELECTROCARDIOGRAM REPORT Name: CHHAYA ALVARADO Room: [address] ADM IN M.R.#: [id number] Admission: 06/26/19 Attend Phys: Gabrielle Kent Discharge: Date of : 53 Report #: [id number] THIS REPORT FOR: //name// [facility] Test Date: 2019-06-29 Test Time: 09:53:48 Pat Name: CHHAYA ALVARADO Department: Room: [address] Gender: F Inside Solar Sales Consultant: Jacob : 1955 Requested By: Marco Estrada Order Number: [id number] Chandrika MD: Konrad Paulino Measurements Intervals [place] Rate: 59 P: 0 VA: 142 QRS: 4 QRSD: 111 T: 161 QT: 393 QTc: 390 Interpretive Statements Sinus rhythm Multiple ventricular premature complexes poor r wave progression Abnormal T, consider ischemia, lateral leads Compared to ECG 06/28/2019 14:28:21 Intraventricular conduction delay no longer present T-wave abnormality still present Possible ischemia still present Electronically Signed On 06-30-2019 16:46:56 EQUITY TRADER by Konrad Paulino [email or web address] <ELECTRONICALLY SIGNED> By: Konrad Paulino MD, [facility] 06/30/19 1646 0953 0953 Konrad Paulino MD, [facility] /EPI
[2019-06-30 20:00] VITALS: BP 131/49
[2019-07-01] VITALS: BP 173/69
[2019-07-01 04:53] LABS: HEMATOCRIT 33.1 % (37.0-47.0); HEMOGLOBIN 10.8 gm/dL (12.0-15.0); MCH 29.7 pg (26.0-34.0); MCHC 32.7 g/dL (28.0-37.0); MCV 90.9 fL (80.0-100.0); MPV 10.7 fl. (7.2-11.1); RBC 3.64 mil/uL (4.20-5.00); RDW-CV 15.2 % (10.5-14.5); WBC 14.6 thou/uL (4.0-11.0)
[2019-07-01 04:55] LABS: CALCIUM 8.7 mg/dL (8.5-10.1); MAGNESIUM 2.5 mg/dL (1.8-2.4); POTASSIUM 5.3 mmol/L (3.5-5.1); TOTAL BILIRUBIN 0.3 mg/dL (<0.1-1.0); TOTAL PROTEIN 6.3 g/dL (6.4-8.2)
--- NOTE | 2019-07-01 05:15 | NUR ---
PT SLEPT MOST OF SHIFT. ASSESSMENT DOCUMENTED. MEDS GIVEN PER E-OCT. IV PATENT. NO REPORTS OF PAIN. DOYLE IN PLACE. WILL CONTINUE WITH PLAN OF CARE.
[2019-07-01 07:45] VITALS: BP 138/54
[2019-07-01 09:07] LABS: HEPATITIS B SURFACE AG Negative (Negative)
--- NOTE | 2019-07-01 12:52 | NUR ---
ASSUMED PT CARE AT 0800. AOX4, SBA, O2 SAT 90'S 3L NC. TRACING SR, PVC ON TELE. PT DENIES PAIN. PT ACCU CHECK. PT DOYLE CATH DRAINING WELL, PT HAD DIALYSIS.VSS, AM ASSESSMENT CHARTED. HOURLY ROUNDING WILL CONTINUE TO MONITOR
--- NOTE | 2019-07-01 13:08 | NUR ---
Spoke with , anticipate that Pt will need skilled at dc. Therapies ordered, pending evals. Cm following to determine if Pt will need outpt dialysis, which would need to be set up prior to dc. Following.
[2019-07-01 13:41] LABS: URINE BLOOD 3+ (Negative); URINE CLARITY CLOUDY; URINE COLOR DARK YELLOW; URINE GLUCOSE-RANDOM NEGATIVE (Negative); URINE KETONES TRACE (Negative); URINE LEUKOCYTES TRACE (Negative); URINE NITRITE NEGATIVE (Negative); URINE PROTEIN 1+ (Negative); URINE SPECIFIC GRAVITY >= 1.030 (1.005-1.030); URINE UROBILINOGEN 0.2 E.U./dl (0.2-1.0)
[2019-07-01 13:47] LABS: ICTOTEST (BILI CONFIRMATORY) Negative (Negative); URINE BILIRUBIN 1+ (Negative)
[2019-07-01 13:52] LABS: BACTERIA >30 Many /HPF (None Seen); CASTS None Seen /LPF (None Seen); CRYSTALS None Seen /LPF (None Seen); SQUAMOUS 0-3 Few /LPF (0-3); URINE RBC >20 Many /HPF (0-2); URINE WBC 6-15 Few /HPF (0-5)
[2019-07-01 15:37] VITALS: BP 137/37
[2019-07-01 20:00] VITALS: BP 148/47
[2019-07-02] VITALS: BP 163/45
[2019-07-02 04:00] VITALS: BP 160/62
[2019-07-02 04:29] LABS: HEMATOCRIT 33.8 % (37.0-47.0); HEMOGLOBIN 11.2 gm/dL (12.0-15.0); MCH 29.7 pg (26.0-34.0); MCHC 33.1 g/dL (28.0-37.0); MCV 89.7 fL (80.0-100.0); MPV 10.3 fl. (7.2-11.1); RBC 3.77 mil/uL (4.20-5.00); RDW-CV 14.8 % (10.5-14.5); WBC 13.5 thou/uL (4.0-11.0)
[2019-07-02 04:42] LABS: ALBUMIN 3.1 g/dL (3.4-5.0); CALCIUM 9.1 mg/dL (8.5-10.1); CREATININE 3.3 mg/dL (0.6-1.3); MAGNESIUM 2.4 mg/dL (1.8-2.4); PHOSPHORUS* 6.4 mg/dL (2.5-4.9)
--- NOTE | 2019-07-02 05:50 | NUR ---
PT SLEPT MOST OF SHIFT. ASSESSMENT DOCUMENTED. MEDS GIVEN PER E-OCT. IV'S PATENT. DOYLE IN PLACE DRAINING DEPENDANTLY. PT BLOOD SUGAR GREATER THAN 400, DR NOTIFIED, ORDERS RECIEVED. FALL PRECAUTIONS IN PLACE. WILL CONTINUE WITH PLAN OF CARE.
[2019-07-02 07:45] VITALS: BP 186/58
--- NOTE | 2019-07-02 09:05 | CON ---
[address] [address] CONSULTATION Name: CHHAYA ALVARADO Room: [address] IN M.R.#: [id number] Admission: 06/26/19 Attend Phys: Gabrielle Kent Discharge: Date of : 53 Report #: [id number] THIS REPORT FOR: //name// CC: Demar Estrada DATE OF SERVICE: 06/29/2019 NEPHROLOGY CONSULTATION CONSULTING PHYSICIAN: Dr. Taylor. REASON FOR NEPHROLOGY CONSULTATION: Acute kidney injury on chronic kidney disease stage 3 and hyperkalemia. REASON FOR ADMISSION: COPD exacerbation. HISTORY OF PRESENT ILLNESS: This is a 64-year-old female with past medical history of chronic kidney disease stage 3, baseline creatinine of 1.6-1.9, likely because of diabetes and hypertension, follows with Dr. Yee, COPD, current smoker, came in with shortness of breath despite using outpatient nebulizer, steroids and azithromycin, diagnosed with COPD exacerbation during this admission and bilateral pneumonia and being treated for that. Her creatinine was 1.9 on admission, which is at her baseline on 06/26 and labs were checked again yesterday after that and creatinine was 3.0 and today creatinine was 4.5. Her BUN is also 98. She has been more sleepy today, although currently she was awake and alert and oriented x 3. Today, her potassium was also 6.5 this morning. Her home Lasix and losartan were continued. In fact, she got increased dosage of losartan today. She does not take any NSAIDs. No history of kidney stones reported. She was also continuing to take her Invokana here in the hospital. She was also on pregabalin here. Dalton catheter was placed. She is oliguric, has had about 100 mL of urine since this morning. The patient said that she had stopped smoking for about 20 years, but then again 4 years ago, started smoking. ALLERGIES: No known allergies. REVIEW OF SYSTEMS: As mentioned in history of present illness, otherwise 10-point review of systems is negative. PAST MEDICAL AND SURGICAL HISTORY: Which include diabetes type 2, dyslipidemia, hypertension, chronic kidney disease stage 3; baseline creatinine of 1.6-1.9, COPD, sleep apnea, oxygen dependent; uses about 2 liters of oxygen normally, but about a week ago, she had to pump it up to 3 liters, tonsillectomy, section x 2, hysterectomy, CABG x 3, cholecystectomy/tubal ligation, stent in the right leg, carotid endarterectomy on the left side, lumbar surgery L4-L5, [place] [address] CONSULTATION Name: CHHAYA ALVARADO Room: [address] IN M.R.#: [id number] Admission: 06/26/19 Attend Phys: Gabrielle Kent Discharge: Date of : 53 Report #: [id number] and chronic kidney disease as mentioned above. FAMILY HISTORY: No family history of kidney disease. SOCIAL HISTORY: Twi-hsyh-q-day smoker, otherwise no alcohol use or illicit drug use. She lives at home with her grandson. HOME MEDICATIONS: Which include sennosides-docusate, Lasix 40 mg once a day, which she takes for swelling in her legs, Zanaflex, Trulicity, Tradjenta, albuterol, nitroglycerin, pregabalin 150 mg twice a day, paricalcitol, clopidogrel, Invokana 100 mg a day, , atorvastatin, losartan, hydrocodone, acetaminophen, duloxetine, venlafaxine, insulin aspart. PHYSICAL EXAMINATION: VITAL SIGNS: Blood pressure is 131/42, pulse rate is 60, temperature is 36.8, respiratory rate is around 16, pulse ox is 99% on 3 liters of oxygen by nasal cannula. GENERAL: She is awake, alert, oriented x 3. She does tend to fall asleep while talking to me, oriented x 3. HEAD AND EYES: Atraumatic, normocephalic. Normal conjunctivae. EARS, NOSE, AND THROAT: Mucous membranes are dry. NECK: No JVD. CHEST: Bilaterally diminished breath sounds anteriorly and bilateral wheezing heard. CARDIOVASCULAR: S1, S2 normal. No murmurs heard. ABDOMEN: Obese, otherwise soft, nondistended, nontender. EXTREMITIES: There is no lower extremity edema. SKIN: Quite dry. NEUROLOGIC FUNCTION: Gross neurological function is intact. PSYCHIATRIC: Mood and affect seems to be normal. LABORATORY DATA: WBC 15.4, this is from 06/26, hemoglobin 12.6 on 06/26. Today, sodium is 132, potassium was 6.5, this morning has improved to 5.7 after treatment, BUN 98, creatinine 4.5, CO2 of 27 and other labs were reviewed. IMAGING: Chest CT and chest x-ray were reviewed. ASSESSMENT: 1. Acute kidney injury on chronic kidney disease stage 3, baseline creatinine is 1.6-1.9 and creatinine 1.9 on admission, but now has peaked to 4.5. Acute kidney injury is in the setting of Invokana use causing dehydration and Lasix also causing dehydration, losartan use and intravascular volume depletion. Urinalysis is still pending. The patient is oliguric. Renal ultrasound is also pending. The patient has chronic kidney disease stage 3 due to diabetes and hypertension, follows with Dr. Yee. We will obtain outpatient records. 2. Hyperkalemia in the setting of intravascular volume depletion, use of [address] [place] [place] [address] CONSULTATION Name: CHHAYA ALVARADO Room: [address] ADM IN M.R.#: [id number] Admission: 06/26/19 Attend Phys: Gabrielle Kent Discharge: Date of : 53 Report #: [id number] losartan. The patient was also on a regular diet and acute kidney injury. 3. Metabolic alkalosis. This could be her response to chronic respiratory acidosis. 4. Chronic obstructive pulmonary disease exacerbation, being treated with steroids as per primary. 5. Bilateral pneumonia, being treated by primary. She is on Levaquin for that. 6. Hypertension. Blood pressure is controlled. 7. Diabetes type 2, deferred to primary for management. 8. Diabetic neuropathy. PLAN: 1. So far, her creatinine is staying stable with IV fluids, potassium has improved with IV fluids, although urine output has not tremendously increased. We will check another potassium this afternoon at around 3:00. If potassium is going up more than 6, she might need dialysis if her urine output has not picked up by that time. 2. Continue IV fluids, will need to check renal ultrasound, strict I's and O's. We will need to check UA, diet has been changed to renal diet, try to keep a mean arterial pressure around 65-70 and try to avoid nephrotoxic agents, losartan, Lasix, Invokana, pregabalin have all been stopped. Her ejection fraction review is 60-65%. Thank you for this consultation. We will continue to follow along with you. Thirty-five minutes of critical care time spent. Time was spent in chart review, orders, and care coordination. We will continue to follow with you. Discussed with the patient and the patient's nurse. <ELECTRONICALLY SIGNED> By: Cheryl Mckenna MD 07/02/19 0905 1436 [id number] Mckenna MD /nt
[2019-07-02 11:30] VITALS: BP 149/46
[2019-07-02 12:18] VITALS: BP 144/54
[2019-07-02 18:01] VITALS: BP 154/58
--- NOTE | 2019-07-02 18:55 | NUR ---
PATINET RESTING IN BED. VSS. DOYLE TO DRAIN. UP WITH ASSIST X1. HOURY ROUNDING COMPLETED FOR PATINET SAFETY.
[2019-07-03 00:15] VITALS: BP 159/44
[2019-07-03 04:11] VITALS: BP 179/49
[2019-07-03 05:17] LABS: CALCIUM 9.1 mg/dL (8.5-10.1); CREATININE 2.9 mg/dL (0.6-1.3); MAGNESIUM 2.6 mg/dL (1.8-2.4); PHOSPHORUS* 6.4 mg/dL (2.5-4.9)
[2019-07-03 12:45] VITALS: BP 133/83
[2019-07-03 15:53] VITALS: BP 150/47
--- NOTE | 2019-07-03 18:52 | NUR ---
SANDY RESTING IN BED. VSS. UP WITH ASSIST X1. VIVEK. LUZMARIA BLANCO COMPLETED FOR PATIENT SAFETY.
[2019-07-03 19:06] LABS: COMPLEMENT-C4 25 mg/dL (14-44)
[2019-07-03 20:00] VITALS: BP 154/48
[2019-07-04] VITALS: BP 156/58
--- NOTE | 2019-07-04 01:32 | NUR ---
PT A+O X R. CALM AND COOPERATIVE. PT REPORTED IRRITATIONIN GROIN AND FOLDS AREA. OPEN AREA ON LEFT LOWER FOLD. NOTIFIED DR NOLASCO. NYSTATIN CREAM ORDERED. PLACED INETER DRY IN BETWEEN FOLDS AND NYSTATIN CREAM ON REDENED AREAS. LEFT MESSAGE FOR WOUND CARE NURSE.
[2019-07-04 02:10] LABS: HIV-1/HIV-2 ANTIBODY Non Reactive (Non Reactive)
[2019-07-04 03:48] VITALS: BP 186/49
[2019-07-04 05:00] LABS: HEMATOCRIT 33.3 % (37.0-47.0); HEMOGLOBIN 11.1 gm/dL (12.0-15.0); MCH 29.9 pg (26.0-34.0); MCHC 33.5 g/dL (28.0-37.0); MCV 89.2 fL (80.0-100.0); RBC 3.73 mil/uL (4.20-5.00); RDW-CV 14.3 % (10.5-14.5); WBC 15.5 thou/uL (4.0-11.0)
[2019-07-04 05:14] LABS: CALCIUM 9.4 mg/dL (8.5-10.1); CREATININE 2.4 mg/dL (0.6-1.3); PHOSPHORUS* 5.1 mg/dL (2.5-4.9); POTASSIUM 4.2 mmol/L (3.5-5.1)
[2019-07-04 12:04] VITALS: BP 148/40
[2019-07-04 16:10] VITALS: BP 138/49
--- NOTE | 2019-07-04 18:17 | NUR ---
PATINET RESTING IN BED. UP TO BSC AD BRENDA. 3L PER NASAL CANULA. DOYLE AND TEMPORARY DIALYSIS CATHETER REMOVED. HOURLKY ROUNDING COMPLETED FOR PATINET SAFETY.
[2019-07-04 20:00] VITALS: BP 154/54
[2019-07-05] VITALS (8 sets, daily range): BP systolic 129–192; BP diastolic 50–74
--- NOTE | 2019-07-05 03:08 | NUR ---
ASSUMED CARE OF PT AFTER REPORT AT 1930. PT A&OX4. VSS. PHYSICAL ASSESSMENT COMPLETED AND CHARTED. PT ON O2 AT 3L NC/BIPAP AT HS. PT TRACING SR/PAC/PV ON TELE. PT UPSTANDBY TO BSC. PT COMPLAINED OF HEADACHE- MED GIVEN PER MAR. PT ABLE TO SLEEP WELL ON BED. CALL LIGHT WITHIN REACH.
--- NOTE | 2019-07-05 03:18 | NUR ---
ASSUMED CARE OF PT AFTER REPORT AT 2029. PT A&OX4. VSS. PHYSICAL ASSESSMENT COMPLETED AND CHARTED. PT ON O2 AT 3L NC/BIPAP AT HS. PT TRACING SR/PAC/PV ON TELE. PT UPSTANDBY TO BSC. PT COMPLAINED OF HEADACHE- MED GIVEN PER MAR. PT ABLE TO SLEEP WELL ON BED. CALL LIGHT WITHIN REACH.
[2019-07-05 05:44] LABS: CALCIUM 9.1 mg/dL (8.5-10.1); CREATININE 2.5 mg/dL (0.6-1.3); POTASSIUM 4.3 mmol/L (3.5-5.1)
--- NOTE | 2019-07-05 06:38 | NUR ---
ASSUMED CARE AT APPROX 0400, AGREE WITH PREVIOUS NURSES ASSESSMENT. VSS. SEE MAR. SEE CHARTING. FALL PRECAUTIONS IN PLACE. HOURLY ROUNDING FOR SAFETY.
[2019-07-05] MEDS ORDERED: SINGULAIR 10 MG10 M1 PO (09:53)
[2019-07-05] MEDS ORDERED: NICOTINE TRANSD21 M1 TRANSDERM (09:53)
[2019-07-05] MEDS ORDERED: NEBULIZER MISCELL (09:53)
[2019-07-05] MEDS ORDERED: IPRAT-ALBUT 0.5-3 ML INH (09:53)
[2019-07-05] MEDS ORDERED: FELODIPINE 5 MG5 M1 PO (09:53)
[2019-07-05] MEDS ORDERED: PULMICORT0.5 MG/2 M INH (09:53)
[2019-07-05] MEDS ORDERED: PREDNISONE 10 M10 M1 PO (09:53)
[2019-07-05] MEDS ORDERED: TESSALON PERLE100 MG PO (09:53)
--- NOTE | 2019-07-05 09:54 | NUR ---
ASSUMED CARE OF PT AT 0730. PT RESTING IN BED WAITING FOR BREAKFAST. PT A&0X4, DENIES ANY PAIN OR SHORTNESS OF BREATH AT THIS TIME. PT TRACING SR ON THE MEAT CLERK. ON 3L NC SAT 99%. PT STATES SHE WEARS 3L NC AT HOME. PT STATES SHE HASNT HAD A BOWEL MOVEMENT IN 4 DAYS AND THIS IS NORMAL FOR HER. PT AGREED TO SCHEDULED SENNA BUT REFUSED ANY EXTRA STOOL SOFTENER/ LAXATIVE. EDUCATION GIVEN. PT UP WITH SBA TO BATHROOM. PT GOAL FOR TODAY IS DISCHARGE PLANNING AND PAIN MGMT. AM ASSESSMENT CHARTED. MEDICATIONS PER OCT. PT REPOSITIONS SELF. HOURLY ROUNDING OBSERVED. BED IN LOW POSITION. CALL LIGHT WITHIN REACH. WILL CONTINUE PLAN OF CARE.
--- NOTE | 2019-07-05 09:57 | NUR ---
Spoke with , anticipate dc to home today. Pt continues to refuse HH. informed that Pt will need a trilogy, faxed referral to [facility]a at [facility], waiting to see if Pt will qualify. Following.
--- NOTE | 2019-07-05 17:19 | NUR ---
NO ACUTE CHANGES THROUGHOUT SHIFT. REFER TO CHARTING. PT BLOOD PRESSURE BETTER THIS AFTERNOON AFTER INCREASE IN HYDRALAZINE DOSAGE- 150'S/60'S. CONTINUES TO TRACE TRIGEMINY/ SR WITH PVC'S ON THE MANAGER ENT. ON 3L NC SAT UPPER 90'S. PT DENIES ANY PAIN OR SHORTNESS OF BREATH THIS AFTERNOON. VISITOR AT BEDSIDE THIS AFTERNOON. PT UP SBA TO BATHROOM. VOIDING WELL. REFER TO I/O. PT PROGRESSING TOWARDS GOALS. MEDICATIONS PER OCT. PT REPOSITIONS SELF. HOURLY ROUNDING OBSERVED. BED IN LOW POSITION. CALL LIGHT WITHIN REACH. WILL CONTINUE PLAN OF CARE.
[2019-07-06] VITALS: BP 166/46
[2019-07-06 04:00] VITALS: BP 152/50
[2019-07-06 06:02] LABS: CALCIUM 9.3 mg/dL (8.5-10.1); CREATININE 2.6 mg/dL (0.6-1.3); POTASSIUM 4.9 mmol/L (3.5-5.1)
--- NOTE | 2019-07-06 07:36 | NUR ---
VSS. SEE MAR. SEE CHARTING. FALL PRECAUTIONS IN PLACE. HOURLY ROUNDING FOR SAFETY.
[2019-07-06 08:05] VITALS: BP 143/43
--- NOTE | 2019-07-06 08:32 | NUR ---
WOUND NURSE: PATIENT SEEN TO ADDRESS RASH WITH SUPERFICIAL SKIN LESION NOTED ON THE LEFT ABDOMINAL FOLD. PRESENTS WITH 0.5 X 1.5 X 0.1 CM SUPERFICIAL SKIN LESION WHICH PRESENTS WITH PARTIAL THICKNESS TISSUE LOSS. THERE IS NOT IDENTIFIED ACTIVE DRAINAGE AND PERIWOUND WITH FAINT PINK MACULAR RASH. PATIENT HAS NYSTATIN CREAM ORDERED BID AND HAS INTERDRY AT THE BEDSIDE. RECOMMEND CONTINUATION OF CURRENT TREATMENT WITH THESE TWO ITEMS.
[2019-07-06 09:07] LABS: GLOMERULR BASEM MEMBRN AB 2 units (0-20)
[2019-07-06] MEDS ORDERED: HYDRALAZINE 5050 MG PO (09:15)
[2019-07-06 10:08] LABS: ANA INTERPRETATION Negative (Negative)
[2019-07-06 12:31] VITALS: BP 192/51
--- NOTE | 2019-07-06 13:30 | NUR ---
VSS, ASSUMED CARE IN THE AM, ASSESSMENT PERFORMED AND CHARTED, FALL PRECAUTIONS IN PLACE AND CALL LIGHT IN REACH, PT IS A&O4 AND UP AD BRENDA, ON 3L NC AND IS TRACING SR ON THE MONITOR, AT THIS TIME PT HAS BEEN DISCHARGED, PT WAS GIVEN INSTRUCTIONS AND PERSCRIPTIONS SENT TO PHARMACY, PT DENIES ANY QUESTIONS AT TIME OF D/C SCRIPT FILLED OUT TO GET LAB WORK DONE, PT WAS TAKEN OUT VIA WHEEL CHAIR TO CAR WITH STAFF AND FAMILY,
== END 2019-07-06 13:15 | disposition home or self-care (01) | DRG 177 ==
LOC: M.ERS 20:15 → M.2W 22:46 → M.TBA-ER 22:46 → M.2W 23:40
PROVIDERS: Family Medicine; Internal Medicine; Personal Emergency Response Attendant; ADMIT Internal Medicine
PROC: 5A09357 Assistance with Respiratory Ventilation, Less than 24 Consecutive Hours, Continuous Positive Airway Pressure (ICD-10-PCS; principal; 2019-06-26)
PROC: 5A09357 Assistance with Respiratory Ventilation, Less than 24 Consecutive Hours, Continuous Positive Airway Pressure (ICD-10-PCS; 2019-06-27)
PROC: 5A09357 Assistance with Respiratory Ventilation, Less than 24 Consecutive Hours, Continuous Positive Airway Pressure (ICD-10-PCS; 2019-06-28)
PROC: B5181ZA Fluoroscopy of Superior Vena Cava using Low Osmolar Contrast, Guidance (ICD-10-PCS; 2019-06-29)
PROC: 5A1D70Z Performance of Urinary Filtration, Intermittent, Less than 6 Hours Per Day (ICD-10-PCS; 2019-06-29)
PROC: 02HV33Z Insertion of Infusion Device into Superior Vena Cava, Percutaneous Approach (ICD-10-PCS; 2019-06-29)
PROC: B548ZZA Ultrasonography of Superior Vena Cava, Guidance (ICD-10-PCS; 2019-06-29)
PROC: 5A09357 Assistance with Respiratory Ventilation, Less than 24 Consecutive Hours, Continuous Positive Airway Pressure (ICD-10-PCS; 2019-06-29)
PROC: 5A1D70Z Performance of Urinary Filtration, Intermittent, Less than 6 Hours Per Day (ICD-10-PCS; 2019-06-30)
PROC: 5A1D70Z Performance of Urinary Filtration, Intermittent, Less than 6 Hours Per Day (ICD-10-PCS; 2019-07-01)
PROC: 5A09357 Assistance with Respiratory Ventilation, Less than 24 Consecutive Hours, Continuous Positive Airway Pressure (ICD-10-PCS; 2019-07-04)
DX: J15.6 Pneumonia due to other Gram-negative bacteria (principal); J96.21 Acute and chronic respiratory failure with hypoxia; J96.22 Acute and chronic respiratory failure with hypercapnia; I21.A1 Myocardial infarction type 2; N17.0 Acute kidney failure with tubular necrosis; J44.0 Chronic obstructive pulmonary disease with (acute) lower respiratory infection; E87.4 Mixed disorder of acid-base balance; J44.1 Chronic obstructive pulmonary disease with (acute) exacerbation; E87.0 Hyperosmolality and hypernatremia; E78.5 Hyperlipidemia, unspecified; I25.10 Atherosclerotic heart disease of native coronary artery without angina pectoris; I12.9 Hypertensive chronic kidney disease with stage 1 through stage 4 chronic kidney disease, or unspecified chronic kidney disease; E11.22 Type 2 diabetes mellitus with diabetic chronic kidney disease; E11.51 Type 2 diabetes mellitus with diabetic peripheral angiopathy without gangrene; F17.210 Nicotine dependence, cigarettes, uncomplicated; G47.30 Sleep apnea, unspecified; E66.9 Obesity, unspecified; N18.3 Chronic kidney disease, stage 3 (moderate); E87.5 Hyperkalemia; E11.40 Type 2 diabetes mellitus with diabetic neuropathy, unspecified; E86.0 Dehydration; E11.65 Type 2 diabetes mellitus with hyperglycemia; T38.0X5A Adverse effect of glucocorticoids and synthetic analogues, initial encounter; Y92.230 Patient room in hospital as the place of occurrence of the external cause; E66.01 Morbid (severe) obesity due to excess calories; G47.33 Obstructive sleep apnea (adult) (pediatric); Z98.891 History of uterine scar from previous surgery; Z90.710 Acquired absence of both cervix and uterus; Z95.1 Presence of aortocoronary bypass graft; Z90.49 Acquired absence of other specified parts of digestive tract; Z68.42 Body mass index [BMI] 45.0-49.9, adult; Z95.820 Peripheral vascular angioplasty status with implants and grafts; Z79.899 Other long term (current) drug therapy; Z79.4 Long term (current) use of insulin; Z79.51 Long term (current) use of inhaled steroids; Z79.02 Long term (current) use of antithrombotics/antiplatelets; Z99.81 Dependence on supplemental oxygen; Z71.6 Tobacco abuse counseling

== ENCOUNTER 2019-08-17 08:57 | Inpatient (IN) | payer OTHER, MEDICAID ==
[~2019-08-17] VITALS: Ht 162.6 cm; Wt 121.5 kg
[~2019-08-17 08:57] MED LIST changes: +FELODIPINE 5 MG5 M1 PO; +HYDRALAZINE 5050 MG PO; +IPRAT-ALBUT 0.5-3 ML INH; +NEBULIZER MISCELL; +NICOTINE TRANSD21 M1 TRANSDERM; +NORCO 10-325 T1 EAC1 PO; -NORCO PO; +PULMICORT0.5 MG/2 M INH; +SINGULAIR 10 MG10 M1 PO; +TESSALON PERLE100 MG PO; +TRADJENTA5 MG PO; +TRULICITY0.75 MG/0. SUBQ; +ZANAFLEX4 M2 PO
[2019-08-17 09:13] VITALS: BP 120/40
[2019-08-17 09:32] LABS: ABSOLUTE BASOPHILS 0.1 thou/uL (0.0-0.2); ABSOLUTE EOSINOPHILS 0.2 thou/uL (0.0-0.7); ABSOLUTE LYMPHOCYTES 1.3 thou/uL (0.8-5.3); ABSOLUTE MONOCYTES 1.1 thou/uL (0.0-1.2); ABSOLUTE NEUTROPHILS 11.8 thou/uL (1.6-8.1); BASOPHILS 0.5 %; EOSINOPHILS 1.1 %; HEMATOCRIT 26.2 % (37.0-47.0); HEMOGLOBIN 8.7 gm/dL (12.0-15.0); LYMPHOCYTES 8.8 %; MCH 29.7 pg (26.0-34.0); MCHC 33.3 g/dL (28.0-37.0); MCV 89.2 fL (80.0-100.0); MONOCYTES 7.4 %; MPV 10.4 fl. (7.2-11.1); NUCLEATED RBCS 0 /100WBC; PLATELET COUNT* 175 thou/uL (150-400); POLYS 82.2 %; RBC 2.94 mil/uL (4.20-5.00); RDW-CV 15.6 % (10.5-14.5); WBC 14.3 thou/uL (4.0-11.0)
[2019-08-17] MEDS ORDERED: FUROSEMIDE 40 M40 MG PO (09:36)
[2019-08-17] MEDS ORDERED: BACTRIM DS TAB1 EAC1 PO (09:37)
[2019-08-17 09:43] LABS: CALCIUM 8.6 mg/dL (8.5-10.1); CREATININE 3.1 mg/dL (0.6-1.3)
[2019-08-17 09:46] LABS: APTT 27.5 Seconds (25.0-31.3); INR 1.2; PROTIME 11.8 Seconds (9.20-11.50)
[2019-08-17 09:49] LABS: POTASSIUM 6.4 mmol/L (3.5-5.1)
[2019-08-17 09:54] LABS: ALBUMIN 3.2 g/dL (3.4-5.0); TOTAL BILIRUBIN 0.4 mg/dL (<0.1-1.0); TOTAL PROTEIN 6.7 g/dL (6.4-8.2)
[2019-08-17 14:30] VITALS: BP 157/58
[2019-08-17 17:13] VITALS: BP 137/77
[2019-08-17] MEDS ORDERED: COZAAR 25 MG TA25 M1 PO (17:59)
[2019-08-17 18:35] VITALS: BP 141/54
--- NOTE | 2019-08-17 18:42 | NUR ---
PATIENT RESTING IN BED., ADMISSION COMPLETED. AWAITING ORDERS FROM MD. HOURLY ROUNDING COMPLETED FOR PATINET SAFETY.
[2019-08-17 20:00] VITALS: BP 132/107
[2019-08-18] VITALS: BP 130/78
[2019-08-18 04:00] VITALS: BP 158/70
[2019-08-18 06:00] LABS: CALCIUM 9.4 mg/dL (8.5-10.1); CREATININE 3.3 mg/dL (0.6-1.3); POTASSIUM 5.9 mmol/L (3.5-5.1)
[2019-08-18 07:51] VITALS: BP 132/51
[2019-08-18 09:23] LABS: CALCIUM 8.5 mg/dL (8.5-10.1)
[2019-08-18 12:33] VITALS: BP 115/56
[2019-08-18 12:53] LABS: URINE BILIRUBIN NEGATIVE (Negative); URINE BLOOD NEGATIVE (Negative); URINE CLARITY SL CLOUDY; URINE COLOR YELLOW; URINE GLUCOSE-RANDOM NEGATIVE (Negative); URINE KETONES NEGATIVE (Negative); URINE LEUKOCYTES NEGATIVE (Negative); URINE NITRITE NEGATIVE (Negative); URINE PROTEIN NEGATIVE (Negative); URINE UROBILINOGEN 0.2 E.U./dl (0.2-1.0)
[2019-08-18 13:01] LABS: BACTERIA None Seen /HPF (None Seen); SQUAMOUS 0-3 Few /LPF (0-3); URINE RBC None Seen /HPF (0-2); URINE WBC None Seen /HPF (0-5)
[2019-08-18 13:02] LABS: AMORPHOUS URATES Moderate /LPF (None Seen); HYALINE CASTS 0-3 Few /LPF (None Seen); MUCUS None Seen strn/LPF (None Seen)
[2019-08-18 16:45] VITALS: BP 158/100
--- NOTE | 2019-08-18 17:20 | NUR ---
PATIENT RESTING IN BED. UP WITH STANDBY ASSISTANCE. O2 AT 3L PER NASAL CANUA. DIMINISHED BREATHSOUNDS WITH WHEEZES. SHORTNESS OF AIR WITH EXERTION. HOURLY ROUNDING COMPLETED FOR PATIENT SAFETY. RENAL FOLLOWING CLOSELY FOR FUNCTION AND LAB VALUES.
[2019-08-18 19:30] VITALS: BP 164/53
[2019-08-19] VITALS: BP 104/44
[2019-08-19 04:00] VITALS: BP 116/54
--- NOTE | 2019-08-19 05:47 | NUR ---
VSS. ASSESSMENT COMPLETED CHARTED. SEE MAR. FALL PRECAUTIONS IN PLACE. HOURLY ROUNDING FOR SAFETY.
[2019-08-19 06:00] LABS: CALCIUM 8.8 mg/dL (8.5-10.1); CREATININE 2.9 mg/dL (0.6-1.3)
[2019-08-19 08:00] VITALS: BP 140/96
--- NOTE | 2019-08-19 12:18 | EKG ---
[place] [address] ELECTROCARDIOGRAM REPORT Name: CHHAYA ALVARADO Room: [address] ADM IN M.R.#: [id number] Admission: 08/17/19 Attend Phys: Flora Vásquez Discharge: Date of : 53 Report #: [id number] THIS REPORT FOR: //name// [facility] Test Date: 2019-08-17 Test Time: 09:30:48 Pat Name: CHHAYA ALVARADO Department: Room: [facility] Gender: F Senior C Developer: ANGY : 1955 Requested By: Anatoliy Gomez Order Number: [id number] MD: Heath Stewart Measurements Intervals [place] Rate: 75 P: 103 [place]: 162 QRS: -5 QRSD: 112 T: 113 QT: 426 QTc: 476 Interpretive Statements Sinus rhythm Multiple ventricular premature complexes Borderline intraventricular conduction delay Nonspecific T abnormalities, lateral leads Compared to ECG 06/29/2019 14:28:21 Atrial premature complex(es) no longer present Junctional rhythm no longer present Myocardial infarct finding no longer present Possible ischemia no longer present ST (T wave) deviation no longer present T-wave abnormality still present Electronically Signed On 08-19-2019 12:17:15 RAILROAD TRACK INSPECTOR by Heath Stewart [email or web address] <ELECTRONICALLY SIGNED> By: Heath Stewart MD, [facility] 08/19/19 1217 9 9 Heath Stewart MD, [facility] /EPI
[2019-08-19 12:34] VITALS: BP 155/98
--- NOTE | 2019-08-19 12:44 | CON ---
[address] [address] CONSULTATION Name: CHHAYA ALVARADO Room: [address] IN M.R.#: [id number] Admission: 08/17/19 Attend Phys: Flora Vásquez Discharge: Date of : 53 Report #: [id number] THIS REPORT FOR: //name// CC: Maria Esther Isaac DO DATE OF SERVICE: 08/18/2019 CARDIOLOGY CONSULTATION HISTORY OF PRESENT ILLNESS: The patient is a 64-year-old single white female who I was asked to see in the hospital today after she complained of being short of breath. The patient has an extensive past medical history. She apparently presented back in 2010 with chest pain. She had a heart catheterization here at [facility] by Dr. Castellon and was found to have multivessel coronary artery disease. Because of insurance purposes, she was sent to the [facility] and had triple vessel bypass surgery that included vein graft from her left leg. She has done well since that time, although she is not very active at this time. She is overweight, being 5 feet 4, 240 pounds. She unfortunately continues to smoke. She denies any recent chest tightness. She has had progressive renal failure and is followed by consulting software engineer. She apparently was just here at [facility] earlier this year and required dialysis on 3 separate occasions. Recently, she has had increasing swelling of her feet and shortness of breath. She finally came to the Emergency Room yesterday and was admitted. Cardiology consultation was requested. She denies any palpitations or syncope. PAST MEDICAL HISTORY: Otherwise significant for cholecystectomy, hysterectomy. She has a history of PAD and has had previous stents in her legs. She had previous toe amputation of the right foot after a sore developed that would not heal. She has diabetes, hypertension, hyperlipidemia. MEDICATIONS: On admission included Plendil, Pulmicort, Singulair, albuterol, hydralazine, atorvastatin, Plavix, ranitidine, and Trulicity. ALLERGIES: She has no known drug allergies. FAMILY HISTORY: Her father had myocardial infarction. SOCIAL HISTORY: She is from her . She lives in [place] with her grandson. She smokes a pack of cigarettes a day. No alcohol abuse. REVIEW OF SYSTEMS: She is overweight, being 5 feet 4, 240 pounds. She has no history of stroke. She does have sleep apnea, uses CPAP. She has COPD, has inhalers at home. She has had previous carotid endarterectomy[place] [address] CONSULTATION Name: CHHAYA ALVARADO Room: [address] IN M.R.#: [id number] Admission: 08/17/19 Attend Phys: Flora Vásquez Discharge: Date of : 53 Report #: [id number] peptic ulcer disease, liver disease. She has chronic kidney disease. No cancer. No psychiatric illness. PHYSICAL EXAMINATION: GENERAL: Revealed an elderly obese white female, lying in bed. She appeared in no acute distress. VITAL SIGNS: She had a blood pressure of 150/60, pulse 70. She is afebrile. HEENT: She was anicteric. Conjunctivae pink. Mucous membranes moist. NECK: Veins were difficult to assess due to obesity. CHEST: Revealed decreased breath sounds at bases. CARDIOVASCULAR: Regular rate and rhythm, no murmur. ABDOMEN: Obese. EXTREMITIES: She had no significant edema. No dorsalis pedis pulses could be palpated. SKIN: Cool and dry. NEUROLOGIC: Nonfocal. LABORATORY DATA: ECG showed a sinus rhythm, occasional PVCs, poor R-wave progression. Her echocardiogram done in 06/2019 here at [facility] showed ejection fraction 60%, left ventricular hypertrophy, left atrial enlargement, mild mitral regurgitation. Nuclear stress test in 2018 showed ejection fraction well preserved. There is moderate apical reversible defect. Her x-rays yesterday, she had a portable chest x-ray that showed cardiomegaly, no pulmonary edema. Her lab work, sodium 138, potassium 6.0, BUN 65. It has been as high as 118 in the past, creatinine is 3.0, it has been as high as 4.5 in the past. Liver function studies were normal. Albumin 3.2. Troponin was 0.27, it was 1.55 in 2015. BNP 6080. Her white blood cell count 14.4, hemoglobin 8.7, it was 11.1 a month ago. IMPRESSION AND RECOMMENDATIONS: 1. Coronary artery disease. No significant angina. Nuclear stress test years ago showed a small area of ischemia. I would not recommend cardiac catheterization at this time. I would continue Plavix. 2. Hypertension. The patient has been on a calcium manuela and hydralazine. I would not recommend AMELIA inhibitor nor ARB because of chronic kidney disease. 3. End-stage renal disease. The patient requires hemodialysis. 4. Obesity. 5. Sleep apnea. The patient uses CPAP. 6. Previous carotid endarterectomy. 7. Peripheral arterial disease with previous stenting. 8. Hyperlipidemia. The patient is on a statin drug. 9. Tobacco abuse. [address] [place] [address] CONSULTATION Name: CHHAYA ALVARADO Room: [address] IN M.R.#: [id number] Admission: 08/17/19 Attend Phys: Flora Vásquez Discharge: Date of : 53 Report #: [id number] 10. Shortness of breath, suspect secondary to chronic obstructive pulmonary disease. <ELECTRONICALLY SIGNED> By: Konrad Paulino MD, FACC 08/19/19 1244 1110 [id number] Paulino MD, FACC /nt
--- NOTE | 2019-08-19 14:13 | NUR ---
MET WITH PT TO DISCUSS HOME SITUATION/DC PLANNING. PT LIVES WITH GRANDSON. HE ASSISTS HER NEEDED AND IS HOME WITH HER. PT HAS A DOG AND D/T THAT SHE HAS REFUSED HH IN PAST. HAS HX OF CHF, TALKED WITH HER ABOUT DAILY WTS AND IF SHE GAINS WT TO CONTACT HER DR TO AVOID REHOSPITALIZATION IF SHE IS DECLINING HH. PT USES HOME O2 THRU [facility] (3L), CPAP, WALKER, W/C. HASN'T HAD HH OR BEEN TO SNF. PT PLANS TO RETURN HOME AT [place]. WILL FOLLOW
--- NOTE | 2019-08-19 15:08 | 2DMMODE ---
[place] [address] 2 D/M-MODE ECHOCARDIOGRAM Name: CHHAYA ALVARADO Room: [address] ADM IN .R.#: [id number] Admission: 08/17/19 Attend Phys: Maria Esther Marshall Discharge: Date of : 53 Date of Service: 08/19/19 1507 Report #: [id number] THIS REPORT FOR: //name// APPROVED REPORT Study performed: 08/19/2019 12:12:17 EXAM: Comprehensive 2D, Doppler, and color-flow Echocardiogram Patient Location: Bedside BSA: 2.19 HR: 70 bpm BP: 116/54 mmHg Other Information Study Quality: Fair Indications Dyspnea 2D Dimensions IVSd: 15.57 (7-11mm) LVOT Diam: 16.77 (18-24mm) LVDd: 45.62 mm PWd: 15.23 (7-11mm) Ascending Ao: 34.27 (22-36mm) LVDs: 31.87 (25-40mm) Aortic Root: 27.54 mm Volumes Left Atrial Volume (Systole) LA ESV Index: 44.70 mL/m2 Aortic Valve AoV Peak Morales.: 1.94 m/s AO Peak Gr.: 15.11 mmHg LVOT Max P.71 mmHg AO Mean Gr.: 8.37 mmHg LVOT Mean P.01 mmHg LVOT Max V: 1.09 m/s AO V2 VTI: 34.26 cm LVOT Mean V: 0.63 m/s XOCHILT (VTI): 1.44 cm2 LVOT V1 VTI: 22.36 cm Mitral Valve MV Mean Gr.: 7.51 mmHg E/A Ratio: 0.79 MV Decel. Time: 202.20 ms MV E Max Morales.: 0.98 m/s MV PHT: 58.64 ms MVA (PHT): 3.75 [place]2 [place] [address] 2 D/M-MODE ECHOCARDIOGRAM Name: CHHAYA ALVARADO Room: [address] IN .R.#: [id number] Admission: 08/17/19 Attend Phys: Maria Esther Marshall Discharge: Date of : 53 Date of Service: 08/19/19 1507 Report #: [id number] TDI E/Lateral E': 8.91 E/Medial E': 9.80 Medial E' Morales.: 0.10 m/s Lateral E' Morales.: 0.11 m/s Pulmonary Valve PV Peak Morales.: 1.17 m/s PV Peak Gr.: 5.51 mmHg Tricuspid Valve RAP Estimate: 15.00 mmHg TR Peak Gr.: 39.77 mmHg RVSP: 54.77 mmHg PA Pressure: 54.77 mmHg Left Ventricle The left ventricle is normal size. There is normal LV segmental wall motion. Mild concentric left ventricular hypertrophy. Left ventricular systolic function is normal. The left ventricular ejection fraction is within the normal range. LVEF is 60-65%. Transmitral Doppler flow pattern suggests pseudonormalization. Right Ventricle The right ventricle is normal size. The right ventricular systolic function is normal. Atria Left atrium is moderately dilated. Right atrium is mildly dilated. Aortic Valve The Aortic valve is sclerotic. No aortic regurgitation is present. No hemodynamically significant valvular aortic stenosis. Mitral Valve There is mitral annular calcification. Mitral valve leaflets are mildly thickened. Trace mitral regurgitation. Mild mitral stenosis. Tricuspid Valve The tricuspid valve is normal in structure. Mild tricuspid regurgitation. Pulmonic Valve The pulmonary valve is normal in structure. There is no pulmonic [place] [address] 2 D/M-MODE ECHOCARDIOGRAM Name: CHHAYA ALVARADO Room: [address] IN [facility]#: [id number] Admission: 08/17/19 Attend Phys: Maria Esther Marshall Discharge: Date of : 53 Date of Service: 08/19/19 1507 Report #: [id number] Great Vessels The aortic root is normal in size. The IVC is dilated. Pericardium There is no pericardial effusion. <Conclusion> The left ventricle is normal size. Mild concentric left ventricular hypertrophy. Left ventricular systolic function is normal. The left ventricular ejection fraction is within the normal range. LVEF is 60-65%. Transmitral Doppler flow pattern suggests pseudonormalization. Left atrium is moderately dilated. Right atrium is mildly dilated. There is mitral annular calcification. Mitral valve leaflets are mildly thickened. Trace mitral regurgitation. Mild mitral stenosis. Mild tricuspid regurgitation. The IVC is dilated. There is no pericardial effusion. <ELECTRONICALLY SIGNED> By: Sacha Castellon MD, FACC 08/19/19 1507 1507 1507 Sacha Castellon MD, FACC /INF
[2019-08-19 16:00] VITALS: BP 116/55
--- NOTE | 2019-08-19 18:38 | NUR ---
PT AMBULATED TO SHOWER ROOM WITH WALKER AND SBA ASSIST EARLIER. PT SHOWERED AND SHEETS CAHNGED. C/O HEADACHE THIS EVENING, PRN TYLENOL GIVEN PER ORDER.
[2019-08-19 19:30] VITALS: BP 140/80
[2019-08-20 00:38] VITALS: BP 140/80
[2019-08-20 04:00] VITALS: BP 162/54
--- NOTE | 2019-08-20 04:59 | NUR ---
ASSESSMENT COMPLETED CHARTED. SEE fall PRECATUIONS IN PLACE. HOURLY ROUNDING FOR SAFETY. VSS.
[2019-08-20 06:04] LABS: CALCIUM 8.5 mg/dL (8.5-10.1); CREATININE 3.2 mg/dL (0.6-1.3); POTASSIUM 4.9 mmol/L (3.5-5.1)
[2019-08-20 08:00] VITALS: BP 93/41
[2019-08-20 12:00] VITALS: BP 126/53
[2019-08-20 15:48] LABS: HEMATOCRIT 22.9 % (37.0-47.0); HEMOGLOBIN 7.5 gm/dL (12.0-15.0); MCH 29.6 pg (26.0-34.0); MCHC 32.8 g/dL (28.0-37.0); MCV 90.2 fL (80.0-100.0); MPV 11.3 fl. (7.2-11.1); RBC 2.54 mil/uL (4.20-5.00); WBC 15.4 thou/uL (4.0-11.0)
[2019-08-20 16:30] VITALS: BP 130/36
--- NOTE | 2019-08-20 17:40 | NUR ---
ASSUMED PT CARE REPORT RECEIVED FROM NURSE PT IS AOX4 ON 3L OF O2 VIA NC. VSS. OOB TO CHAIR WITH NURSE ASSISTANCE. ACCUCHECK. DENIES PAIN. DOYLE IN PLACE. NO COMPLAINT. L A/C IV LINE PATENT. FALL PRECAUTION IN PLACE. CALL LIGHT AT REACH.
[2019-08-20 19:50] VITALS: BP 161/60
[2019-08-21] VITALS: BP 132/73
[2019-08-21 04:00] VITALS: BP 134/51
--- NOTE | 2019-08-21 05:13 | NUR ---
ASSESSMENT COMPLETED CHARTED. VSS. SEE MAR. PROGRESSING TOWARDS GOALS. FALL PRECAUTIONS IN PLACE. HOURLY ROUNDING FOR SAFETY.
[2019-08-21 07:51] VITALS: BP 120/38
--- NOTE | 2019-08-21 08:41 | NUR ---
ASSUMED CARE OF PT THIS AM AROUND 0730- FITNESS INSTRUCTOR IN PLACE ORDERED, TRACING SB, 1ST DEGREE, PVC- UPON ASSESSMENT PT NOTED TO BE RESTING IN BED, WATCHING TV- PT A&O X4- CONTIENT OF BOWEL, DOYLE IN PLACE D/D CLEAR YELLOW URINE- SBA WITH TRANSFERS- LCTA, DIMINISHED IN BASES- DYSPNEA NOTED ON EXERTION- VSS, O2 SAT 95% ON 3L VIA NC- ABD OBESE/SOFT/NON-TENDER, BS X4 QUADS- LAST BM REPORTED X4 DAYS AGO- IV NOTED TO LEFT AC INTACT AND SL; IV ABT GIVEN THIS AM PRESCIBED- BS MONITORED ORDERED WITH SSI PRESCIBED- PT DENIES ANY C/O PAIN/DISCOMFORT AT THIS TIME- CALL LIGHT AND PERSONAL BELONGINGS WITH IN REACH- HOURLY ROUNDS IN PLACE R/T SAFETY/NEEDS- ALL NEEDS MET AT THIS TIME-WCTM
[2019-08-21 12:00] VITALS: BP 162/48
[2019-08-21 13:34] LABS: CALCIUM 8.3 mg/dL (8.5-10.1); CREATININE 3.8 mg/dL (0.6-1.3); MAGNESIUM 2.6 mg/dL (1.8-2.4)
[2019-08-21 16:00] VITALS: BP 152/55
[2019-08-21 20:00] VITALS: BP 153/48
[2019-08-22 00:17] VITALS: BP 113/68
[2019-08-22 04:10] VITALS: BP 168/67; BP 177/72
[2019-08-22 06:26] LABS: CALCIUM 8.5 mg/dL (8.5-10.1); CREATININE 3.5 mg/dL (0.6-1.3); POTASSIUM 4.9 mmol/L (3.5-5.1)
[2019-08-22 06:51] LABS: HEMATOCRIT 23.8 % (37.0-47.0); HEMOGLOBIN 7.9 gm/dL (12.0-15.0); MCH 29.3 pg (26.0-34.0); MCHC 33.3 g/dL (28.0-37.0); MPV 10.7 fl. (7.2-11.1); NUCLEATED RBCS 0 /100WBC; PLATELET COUNT* 183 thou/uL (150-400); RDW-CV 15.6 % (10.5-14.5); WBC 19.2 thou/uL (4.0-11.0)
--- NOTE | 2019-08-22 07:26 | NUR ---
ASSUMED CARE OF PT AFTER REPORT AT 1930. PT A&OX4. VSS. PHYSICAL ASSESSMENT COMPLETED AND CHARTED. PT ON O2 AT3L NC. PT TRACING SR PVC ON TELE. PT UPSTANDBY TO BSC. PT WITH DOYLE TO DEPENDENT DRAIN. PT DENIES ANY PAIN OR DISCOMFORT. PT ABLE TO SLEEP WELL ON BED. CALL LIGHT WITHIN REACH.
[2019-08-22 07:32] LABS: ABSOLUTE LYMPHOCYTES 0.6 thou/uL (0.8-5.3); ABSOLUTE MONOCYTES 0.8 thou/uL (0.0-1.2); ABSOLUTE NEUTROPHILS 17.9 thou/uL (1.6-8.1); HYPOCHROMASIA 3+; METAMYELOCYTES 3 %; MYELOCYTES 1 %; OVALOCYTES 1+; PLATELET ESTIMATE ADEQUATE
[2019-08-22 07:33] LABS: BURR CELLS 1+; SCHISTOCYTES Occasional; TOXIC GRANULATION 2+
[2019-08-22 07:35] VITALS: BP 151/68
--- NOTE | 2019-08-22 08:53 | NUR ---
ASSUMED CARE OF PT THIS AM AROUND 07- COMMERCIAL LOAN CLOSER IN PLACE ORDERED, TRACING SR/PVC- UPON ASSESSMENT PT NOTED TO BE RESETING IN BED- PT A&O X4- CONTINENT OF BOWEL, DOYLE IN PLACE D/D CLEAR YELLOW URINE- LCTA/DIMINISHED IN BASES- DYSPNEA NOTED ON EXERTION- VSS, O2 SAT 96% ON 3L VIA NC; O2 TITRATED TO 2L THIS AM- ABD OBESE/SOFT/NON-TENDER, BS X4 QUADS- PT REPORTS TO HAVE HAD GOOD SIZE BM ON PRIOR SHIFT- IV NOTED TO RIGHT HAND INTACT AND SL, IV ABT GIVEN THIS AM PRESCIBED- GOOD PO INTAKE NOTED THIS AM WITH BREAKFAST, BS MONITORED ORDERED WITH SSI PRESCIBED- +1 BLE EDEMA NOTED- INNER DRY NOTED TO LEFT PANNUS REPORTED PER PRIOR SHIFT TO HAVE BEEN PLACED- PT DENIES ANY C/O PAIN/DISCOMFORT AT THIS TIME- CALL LIGHT AND PERSONAL BELONGINGS WITH IN REACH- PT MAKES NEEDS KNOWN- ALL NEEDS MET AT THIS TIME-WCTM
[2019-08-22 12:00] VITALS: BP 157/56
[2019-08-22 16:00] VITALS: BP 156/56
[2019-08-22 20:00] VITALS: BP 157/60
[2019-08-23] VITALS: BP 126/52
[2019-08-23 04:00] VITALS: BP 164/49
--- NOTE | 2019-08-23 04:35 | NUR ---
ASSUMED CARE OF PT AFTER REPORT AT 1930. PT A&OX4. VSS. PHYSICAL ASSESSMENT COMPLETED AND CHARTED. PT ON O2 AT 1L NC. PT TRACING SR/PVC ON TELE. PT UP STANDBY TO BSC. PT WITH DOYLE TO DEPENDENT DRAIN. PT COMPLAINED OF HEADACHE-MEDS GIVEN PER MAR. PT ABLE TO SLEEP WELL ON BED. CALL LIGHT WITHIN REACH.
[2019-08-23 04:48] LABS: ABSOLUTE LYMPHOCYTES 1.1 thou/uL (0.8-5.3); ABSOLUTE NEUTROPHILS 15.8 thou/uL (1.6-8.1); BASOPHILS 0.1 %; HEMATOCRIT 22.8 % (37.0-47.0); HEMOGLOBIN 7.7 gm/dL (12.0-15.0); LYMPHOCYTES 5.6 %; MCH 29.8 pg (26.0-34.0); MCHC 33.9 g/dL (28.0-37.0); MONOCYTES 10.6 %; NUCLEATED RBCS 0 /100WBC; PLATELET COUNT* 167 thou/uL (150-400); POLYS 83.7 %; RBC 2.59 mil/uL (4.20-5.00); RDW-CV 15.7 % (10.5-14.5); WBC 18.9 thou/uL (4.0-11.0)
[2019-08-23 05:13] LABS: CALCIUM 8.4 mg/dL (8.5-10.1); CREATININE 3.3 mg/dL (0.6-1.3); POTASSIUM 4.6 mmol/L (3.5-5.1)
[2019-08-23 07:33] VITALS: BP 145/57
--- NOTE | 2019-08-23 08:52 | NUR ---
ASSUMED CARE OF PT THIS AM AROUND 714- ALLERGIST IN PLACE TRACING SR/PVC- UPON ASSESSMENT PT NOTED TO BE RESTING IN BED, EYES CLOSED- PT A&O X4- CONTINENT OF BOWEL, DOYLE IN PLACE D/D CLEAR YELLOW URINE- LCTA, DIMINISHED IN BASES- VSS, O2 SAT 96% ON 1L VIA NC- ABD SOFT/OBESE/NON-TENDER, BS X4 QUADS- LAST BM REPORTED X1 DAY AGO- IV NOTED TO RIGHT HAND INTACT AND SL, IV ABT GIVEN THIS PRESCRIBED-1+ BLE EDEMA NOTED, LEG ELEVATION IN PLACE INDICATED- BS MONITORED ORDERED WITH SSI PRESCRIBED- PT DENIES ANY C/O PAIN/DISCOMFORT AT THIS TIME- CALL LIGHT AND PERSONAL BELONGINGS WITH IN REACH- HOURLY ROUNDS IN PLACE R/T SAFETY/NEEDS-ALL NEEDS MET AT THIS TIME-WCTM
[2019-08-23 14:28] VITALS: BP 145/49
[2019-08-23 18:30] VITALS: BP 161/59
[2019-08-23 20:00] VITALS: BP 166/71
[2019-08-24] VITALS (7 sets, daily range): BP systolic 115–160; BP diastolic 43–75
--- NOTE | 2019-08-24 04:29 | NUR ---
PT ALERT ORIENTED. PT CONCERNED ABOUT SLEEPING. AMBIEN GIVEN PT STAYED AWAKE FOR A COUPLE OF HOURS AFTER AMBIEN. PT CO PAIN IN LOWER BACK. HYDROCODONE GIVEN. PT SLEEPING QUIETLY NOW. TELEMETRY SHOWS SR. UP WITH STAND BY ASSIST. BLADDER SCAN AFTER 0 VOID. 166MLS.
[2019-08-24 05:22] LABS: ALBUMIN 3.1 g/dL (3.4-5.0); CALCIUM 8.2 mg/dL (8.5-10.1); CREATININE 3.1 mg/dL (0.6-1.3); PHOSPHORUS* 5.9 mg/dL (2.5-4.9); POTASSIUM 4.8 mmol/L (3.5-5.1)
--- NOTE | 2019-08-24 09:30 | NUR ---
ASSUMED CARE AFTER REPORT APPROX 0730. PATIENT OFF UNIT TO GI PROCEDURE: EGD. PATIENT RETURNED TO UNIT VIA BED AND QUALITY CONTROL LAB TECHNICIAN AT 0915. A&0X4, ABLE TO COMMUNICATE NEEDS TO STAFF. ASSESSMENT COMPLETE. VS OBTAINED, WNL. [employer] WE[employer] SYSTEM OPERATOR IN PLACE, SR PVC'S, 85. CALL LIGHT IN REACH. HOURLY ROUNDING FOR SAFETY AND PATIENT NEEDS.
[2019-08-25] VITALS: BP 122/78
--- NOTE | 2019-08-25 00:52 | NUR ---
ASSUMED CARE OF PT AT 1900. PT IS ALERT AND ORIENTED. VSS. PERRLA. NO COMPLAINTS OF PAIN. PT IT DID HAVE A VERY LARGE BOWEL MOVEMENT. PT IS IN SINUS RYTHM WITH FREQUENT PVC'S. PT IS SLEEPING COMFORTABLY IN BED. RESPIRATIONS ARE EVEN AND NONLABORED. WILL CONTINUE TO MONITOR PT.
[2019-08-25 04:00] VITALS: BP 134/50
[2019-08-25 05:20] LABS: ABSOLUTE EOSINOPHILS 0.1 thou/uL (0.0-0.7); ABSOLUTE LYMPHOCYTES 1.1 thou/uL (0.8-5.3); ABSOLUTE MONOCYTES 1.3 thou/uL (0.0-1.2); ABSOLUTE NEUTROPHILS 10.6 thou/uL (1.6-8.1); BASOPHILS 0.1 %; EOSINOPHILS 0.6 %; HEMATOCRIT 21.1 % (37.0-47.0); HEMOGLOBIN 7.1 gm/dL (12.0-15.0); LYMPHOCYTES 8.2 %; MCHC 33.9 g/dL (28.0-37.0); MCV 88.5 fL (80.0-100.0); MONOCYTES 10.2 %; MPV 10.9 fl. (7.2-11.1); NUCLEATED RBCS 0 /100WBC; PLATELET COUNT* 127 thou/uL (150-400); POLYS 80.9 %; RBC 2.38 mil/uL (4.20-5.00); RDW-CV 16.3 % (10.5-14.5); WBC 13.2 thou/uL (4.0-11.0)
[2019-08-25 05:33] LABS: CALCIUM 8.2 mg/dL (8.5-10.1); CREATININE 2.9 mg/dL (0.6-1.3); POTASSIUM 4.9 mmol/L (3.5-5.1)
[2019-08-25 06:00] LABS: ALBUMIN 3.2 g/dL (3.4-5.0); CALCIUM 8.1 mg/dL (8.5-10.1); CREATININE 2.8 mg/dL (0.6-1.3); PHOSPHORUS* 5.8 mg/dL (2.5-4.9)
[2019-08-25 08:15] VITALS: BP 130/39
--- NOTE | 2019-08-25 08:25 | NUR ---
ASSUMED CARE AFTER REPORT APPROX 0730. A&OX4, ABLE TO COMMUNICATE NEEDS TO STAFF. ASSESSMENT COMPLETE, VS OBTAINED, WNL. KEYSEATING MACHINE SET UP OPERATOR IN PLACE, SR WITH PVC'S. CALL LIGHT IN REACH. HOURLY ROUNDING FOR SAFETY/PT NEEDS.
--- NOTE | 2019-08-25 12:34 | NUR ---
VISITED WITH PT IN ROOM RE SAFE HOME PLAN. PT IS UNSTEADY AND WEAK AND IS NOT ABLE TO SAFELY AMBULATE TO THE BATHROOM WITHOUT ASSIST. PT HAS REFUSED HH IN THE PAST SHE HAS A "MEAN DOG THAT BITES STRANGERS" DISCUSSED ALTERNATE PLAN INCLUDING SNF. PT STATES SHE WILL BE WILLING TO STAY WITH HER MOTHER FOR A FEW WEEKS AFTER DC AND GETTING HOME HEALTH. HER MOTHERS ADDRESS IS [address] [place] [address] YFN RODRIGUEZ. PT ALSO ASKING WHO TO CALL TO GET RID OF HER TRILOGY THAT SHE NOT LONGER NEEDS. SHE CALLED SATHYA AND WAS TOLD SHE NEEDS A DR ORDER/ ENCOURAGED PT TO DISCUSS WITH DR ALEXANDER
[2019-08-25 15:00] VITALS: BP 168/61
--- NOTE | 2019-08-25 15:12 | NUR ---
CHF DISCHARGE MEDICATION EDUCATION: PATIENT WAS PROVIDED WITH A DISCHARGE EDUCATION HANDOUT. THE MEDICATION HYDRALAZINE WAS DISCUSSED REGARDING HOW TO TAKE, SIDE EFFECTS, AND HOW IT WORKS. ALL QUESTIONS AND CONCERNS WERE ADDRESSED. THANK YOU.
--- NOTE | 2019-08-25 18:03 | NUR ---
PATIENT COMPLETED 1L OF GOLYTELY ORDERED. STOOLS ARE DARK BROWN, PUDDING CONSISTENCY. PATIENT TRANSFERS WITH MAX ASSIST TO CHAIR. AMELIA WRAPS TO BLE PER DR. VIDAL. PATIENT CONTINUES TO HAVE 1+ PITTING EDEMA IN BLE.
[2019-08-25 19:30] VITALS: BP 142/71
[2019-08-25 23:09] LABS: URINE CREATININE 79.3 mg/dL (Not Estab.)
[2019-08-26] VITALS (9 sets, daily range): BP systolic 130–168; BP diastolic 42–91
--- NOTE | 2019-08-26 02:20 | NUR ---
ASSUMED CARE OF PT AT 1900. PT IS ALERT AND ORIENTED. VSS. PERRLA. NO COMPLAINTS OF PAIN. PT IS ON CLEAR LIQUIDS PER DR COOPER. PT IS IN SINUS RYTHM ON THE TELEMETRY. PT IS RESTING COMFORTABLY IN BED. RESPIRATIONS ARE EVEN AND NONLABORED. WILL CONTINUE TO MONITOR PT.
[2019-08-26 05:45] LABS: ABSOLUTE EOSINOPHILS 0.2 thou/uL (0.0-0.7); ABSOLUTE LYMPHOCYTES 1.1 thou/uL (0.8-5.3); ABSOLUTE MONOCYTES 1.3 thou/uL (0.0-1.2); ABSOLUTE NEUTROPHILS 11.5 thou/uL (1.6-8.1); BASOPHILS 0.1 %; EOSINOPHILS 1.3 %; HEMOGLOBIN 7.7 gm/dL (12.0-15.0); LYMPHOCYTES 7.5 %; MCH 29.8 pg (26.0-34.0); MCHC 33.6 g/dL (28.0-37.0); MCV 88.8 fL (80.0-100.0); MONOCYTES 9.6 %; MPV 10.5 fl. (7.2-11.1); NUCLEATED RBCS 0 /100WBC; PLATELET COUNT* 122 thou/uL (150-400); POLYS 81.5 %; RBC 2.59 mil/uL (4.20-5.00); WBC 14.1 thou/uL (4.0-11.0)
[2019-08-26 05:54] LABS: CALCIUM 8.5 mg/dL (8.5-10.1); CREATININE 2.3 mg/dL (0.6-1.3); POTASSIUM 3.8 mmol/L (3.5-5.1)
--- NOTE | 2019-08-26 09:58 | NUR ---
ASSUMED CARE AROUND 714- SUPERVISOR CELL ROOM IN PLACE ORDERED, TRACING SR WITH PVC'S- UPON ASSESSMENT PT NOTED TO BE RESTING IN BED SIDE CHAIR MOTHER AT SIDE- SBA WITH TRANSFERS- CONTINENT OF B/B- CURRENTLY BEING BOWLE PREPED FOR PLANNED COLONOSCOPY THIS SHIFT- LCTA/DIMINISHED IN BASES, DYSPNEA NOTED ON EXERTION- VSS, O2 SAT 98% ON 3L VIA NC- ABD OBESE/SOFT/NON-TENDER, BS X4 QUADS-IV NOTED TO RIGHT HAND INTACT AND SL, IV ABT GIVEN THIS AM PRESCIBED- FAIR PO INTAKE NOTED THIS AM WITH BREAKFAST, BS MONIOTRED ORDERED- AROUND 914 PT CALLED OUT PER CALL LIGHT STATING SHE HAD FALLEN, WHEN STAFF ENTERED ROOM PT REPORTED TO HAVE BEEN KNEELING ON KNEES IN FRONT OF RECLINER- WHEN QUESTIONING PT WHAT HAD HAPPENED PT STATES "I WAS TRANSFERING FROM [place] AND WENT TO GET UP AND [facility] FELL FORWARD AND, I FELL TO KNEES"- PT DENIES HITTING ANYTHING ELSE- PT ASSISTED TO BOTTOM AND ROM PREFORMED WITH NO PROBLEMS NOTED, SORENESS TO KNEES REPORTED- PT THEN ASSISTED X3 PER AUDREY LIFT BACK TO RECLINER- VS 97.5 19 140/42 87 98% ON 3L- A&O X4, WITH NO CHANGED NOTED PER NEURO- NOTIFIED AND ORDERS OBTAINED FOR INO KNEE X-RAY, THAT HAVE BEEN ORDERED AND COMPLETED; AWAITING RESULTS- CALL LIGHT AND PERSONAL BELONGINGS WITH IN REACH- HOURLY ROUNDS IN PLACE R/T SAFETY/NEEDS- ALL NEEDS MET AT THIS TIME-WCTM
--- NOTE | 2019-08-26 12:00 | NUR ---
CONTINUE TO FOLLOW, MET WITH PT AND MOTHER. PT STILL PLANS TO GO TO HER MOTHER'S HOME AT [place]. DISCUSSED HH OPTIONS AND CHOSE [facility]. FAXED INITIAL REFERRAL TO [facility]. POSSIBLE DC TOMORROW.
[2019-08-27 00:02] VITALS: BP 134/50
[2019-08-27 04:32] VITALS: BP 145/57
[2019-08-27 05:19] LABS: HEMATOCRIT 20.5 % (37.0-47.0); MCH 29.9 pg (26.0-34.0); MCHC 33.8 g/dL (28.0-37.0); MCV 88.4 fL (80.0-100.0); MPV 10.5 fl. (7.2-11.1); NUCLEATED RBCS 0 /100WBC; PLATELET COUNT* 112 thou/uL (150-400); RBC 2.32 mil/uL (4.20-5.00); RDW-CV 16.8 % (10.5-14.5); WBC 12.9 thou/uL (4.0-11.0)
[2019-08-27 05:33] LABS: CALCIUM 8.5 mg/dL (8.5-10.1); CREATININE 2.4 mg/dL (0.6-1.3); PHOSPHORUS* 5.1 mg/dL (2.5-4.9); POTASSIUM 4.3 mmol/L (3.5-5.1)
--- NOTE | 2019-08-27 05:48 | NUR ---
PT CARE ASSUMED AT 1930. SAT MAINTAINED IN O2. ALERT AND ORIENTED X4. DENIES PAIN AND SOB. CALL LIGHT WITHIN REACH AND BED IN LOW POSITION. HOURLY ROUNDING DONE FOR PT SAFETY.
[2019-08-27 06:00] LABS: HEMOGLOBIN 6.9 gm/dL (12.0-15.0)
[2019-08-27 06:29] LABS: CALCIUM 8.2 mg/dL (8.5-10.1); CREATININE 2.4 mg/dL (0.6-1.3); POTASSIUM 4.3 mmol/L (3.5-5.1); TOTAL BILIRUBIN 0.6 mg/dL (<0.1-1.0); TOTAL PROTEIN 6.2 g/dL (6.4-8.2)
[2019-08-27 06:36] LABS: ABSOLUTE LYMPHOCYTES 0.9 thou/uL (0.8-5.3); ABSOLUTE MONOCYTES 0.4 thou/uL (0.0-1.2); ABSOLUTE NEUTROPHILS 11.6 thou/uL (1.6-8.1); PLATELET ESTIMATE ADEQUATE
[2019-08-27 06:39] LABS: ESR (SEDRATE) 70 mm/hr (0-30)
[2019-08-27 08:00] VITALS: BP 148/73; BP 153/82; BP 156/75; BP 166/53; BP 168/76
[2019-08-27 12:54] LABS: HEMATOCRIT 23.2 % (37.0-47.0); HEMOGLOBIN 7.7 gm/dL (12.0-15.0)
--- NOTE | 2019-08-27 15:07 | NUR ---
CONTINUE TO FOLLOW, NOT DC'ING TODAY. WILL NEED HH AT [place]. CALL AND FAX ORDERS TO [facility] [phone] FAX [phone]
[2019-08-27 15:25] VITALS: BP 150/46
[2019-08-27 19:50] VITALS: BP 139/90
[2019-08-27 23:59] VITALS: BP 109/46
[2019-08-28 04:45] VITALS: BP 127/70
[2019-08-28 05:11] LABS: ABSOLUTE EOSINOPHILS 0.1 thou/uL (0.0-0.7); ABSOLUTE LYMPHOCYTES 0.9 thou/uL (0.8-5.3); ABSOLUTE MONOCYTES 1.5 thou/uL (0.0-1.2); ABSOLUTE NEUTROPHILS 11.1 thou/uL (1.6-8.1); BASOPHILS 0.1 %; HEMATOCRIT 22.6 % (37.0-47.0); HEMOGLOBIN 7.7 gm/dL (12.0-15.0); LYMPHOCYTES 6.4 %; MCH 30.2 pg (26.0-34.0); MCHC 34.2 g/dL (28.0-37.0); MCV 88.2 fL (80.0-100.0); MONOCYTES 10.8 %; NUCLEATED RBCS 0 /100WBC; PLATELET COUNT* 103 thou/uL (150-400); POLYS 81.7 %; RBC 2.57 mil/uL (4.20-5.00); RDW-CV 16.2 % (10.5-14.5); WBC 13.6 thou/uL (4.0-11.0)
--- NOTE | 2019-08-28 05:22 | NUR ---
PT CARE ASSUMED AT 1930. SAT MAINTAINED IN O2. ALERT AND ORIENTED X4. CALL LIGHT WITHIN REACH AND BED IN LOW POSITION. DENIES PAIN AND SOB. CALL LIGHT WITHIN REACH AND BED IN LOW POSITION. REDNESS NOTED UNDER ABDOMINAL FOLDS AND NEAR GROIN AREA, INTERDRY PLACED. HOURLY ROUNDING DONE FOR PT SAFETY.
[2019-08-28 05:29] LABS: ALBUMIN 2.9 g/dL (3.4-5.0); CALCIUM 8.5 mg/dL (8.5-10.1); CREATININE 2.4 mg/dL (0.6-1.3); POTASSIUM 4.5 mmol/L (3.5-5.1); TOTAL BILIRUBIN 0.5 mg/dL (<0.1-1.0); TOTAL PROTEIN 6.2 g/dL (6.4-8.2)
[2019-08-28 08:00] VITALS: BP 146/49
[2019-08-28 13:09] VITALS: BP 146/53
[2019-08-28 17:02] VITALS: BP 137/56
--- NOTE | 2019-08-28 19:41 | NUR ---
ASSUMED PT CARE AT 0730. ASSESSMENT COMPLETED CHARTED. ABLE TO MAKE NEEDS KNOWN. UP WITH 1 ASSIST, UP IN CHAIR MOST OF THE DAY. 2L O2, CALL LIGHT WITHIN REACH. RESTING IN BED AT THIS TIME. NO C/O PAIN OR DISCOMFORT. WILL CONTINUE OT MONITOR.
[2019-08-28 20:10] VITALS: BP 141/72
[2019-08-28 23:57] VITALS: BP 118/43
[2019-08-29 05:18] LABS: ABSOLUTE EOSINOPHILS 0.2 thou/uL (0.0-0.7); ABSOLUTE LYMPHOCYTES 0.8 thou/uL (0.8-5.3); ABSOLUTE MONOCYTES 1.6 thou/uL (0.0-1.2); ABSOLUTE NEUTROPHILS 10.5 thou/uL (1.6-8.1); BASOPHILS 0.3 %; EOSINOPHILS 1.4 %; HEMATOCRIT 22.1 % (37.0-47.0); HEMOGLOBIN 7.4 gm/dL (12.0-15.0); LYMPHOCYTES 6.3 %; MCH 29.8 pg (26.0-34.0); MCHC 33.5 g/dL (28.0-37.0); MCV 88.8 fL (80.0-100.0); MONOCYTES 11.8 %; MPV 10.9 fl. (7.2-11.1); NUCLEATED RBCS 0 /100WBC; PLATELET COUNT* 90 thou/uL (150-400); POLYS 80.2 %; RBC 2.49 mil/uL (4.20-5.00); RDW-CV 16.3 % (10.5-14.5); WBC 13.1 thou/uL (4.0-11.0)
--- NOTE | 2019-08-29 05:31 | NUR ---
PT CARE ASSUMED AT 1930. SAT MAINTAINED IN O2. ALERT AND ORIENTED X4. CALL LIGHT WITHIN REACH AND BED IN LOW POSITION. DOYLE IN PLACE AND DRAINING. HOURLY ROUNDING DONE FOR PT SAFETY.
[2019-08-29 05:35] LABS: ALBUMIN 2.9 g/dL (3.4-5.0); CALCIUM 8.4 mg/dL (8.5-10.1); CREATININE 2.3 mg/dL (0.6-1.3); POTASSIUM 4.3 mmol/L (3.5-5.1); TOTAL BILIRUBIN 0.5 mg/dL (<0.1-1.0); TOTAL PROTEIN 6.2 g/dL (6.4-8.2)
[2019-08-29 08:00] VITALS: BP 153/60
--- NOTE | 2019-08-29 09:28 | CON ---
[address] [address] CONSULTATION Name: JENNYCHHAYA CARMEN Room: [address] IN .R.#: [id number] Admission: 08/17/19 Attend Phys: Flora Vásquez Discharge: Date of : 53 Report #: [id number] THIS REPORT FOR: //name// CC: Maria Esther Isaac DO DICTATED BY: Priscilla Russo [facility] DATE OF SERVICE: 08/23/2019 Please note, at the time of this dictation, the patient was seen and physically examined by myself. REASON FOR CONSULTATION: Anemia and melanotic stools. HISTORY OF PRESENT ILLNESS: This is a 64-year-old female, who presented to the Emergency Room with increased shortness of air over the last 5 days prior to her admission and she had noticed that she had body swelling and had gained 12-14 pounds over the last several days. The patient does have stage 4 kidney disease as well as a history of congestive heart failure and she was unable to breathe with very short distances. She is on chronic O2 at home at 3 liters and that was not helping her symptoms as well. The patient does state she has an issue with acid reflux, that she takes ranitidine 150 mg b.i.d. that seems to work, but she does have occasions of when it does break through. She has never had an upper or lower endoscopy study done at this time. The patient was scheduled to have an EGD back in 2017, but she later canceled that appointment. ALLERGIES: No known drug allergies. MEDICATIONS: From home include Lasix, Bactrim, Ventolin, Nitrostat, Effexor, [place], Lyrica, Zemplar, Lipitor, Plavix, Zantac, Zanaflex, Trulicity, Tradjenta, Cymbalta and NovoLog. PAST MEDICAL HISTORY: Diabetes, hyperlipidemia, hypertension, COPD with sleep apnea and O2 dependence, coronary artery disease, peripheral artery disease, stage 4 chronic kidney disease, congestive heart failure. PAST SURGICAL HISTORY: Tonsillectomy, 2 C-sections, hysterectomy, she has had CABG/bypass, cholecystectomy, tubal ligation, she has had a stent in her right leg, she has had a left carotid endarterectomy, she has had lumbar surgery. FAMILY HISTORY: Negative for any GI or female cancers. She does have a daughter with cirrhosis of the liver secondary to alcohol, [place] [address] CONSULTATION Name: CHHAYA ALVARADO Room: [address] IN [facility].#: [id number] Admission: 08/17/19 Attend Phys: Flora Vásquez Discharge: Date of : 53 Report #: [id number] SOCIAL HISTORY: Denies any alcohol or illegal drug use. She has recently in the last 5 years picked up smoking after quitting for 20 years. REVIEW OF SYSTEMS: Twelve-point review of systems is essentially negative except what is mentioned in the HPI. PHYSICAL EXAMINATION: VITAL SIGNS: Temperature 36.5, pulse 84, respirations are 22, blood pressure 145/57. HEART: Regular rate and rhythm. LUNGS: Diminished, but clear. ABDOMEN: Soft. Positive bowel sounds in all 4 quadrants with no masses or tenderness noted. LABORATORY DATA: Hemoglobin was 8.7, she is down to 7.7; white count is 18.9; platelets of 167. GFR is 14. Her BUN is 140. IMPRESSION: 1. Migsv-lc-tlyurpf anemia. 2. Melanotic stool. 3. History of gastroesophageal reflux disease. 4. Chronic constipation, goes about once a week. 5. Chronic obstructive pulmonary disease, O2 dependent. 6. Anticoagulant therapy, Plavix, to peripheral vascular disease. 7. Chronic kidney disease, stage 4. PLAN: 1. EGD tomorrow with Dr. Valenzuela. 2. We will continue her Protonix IV b.i.d. 3. We will add senna b.i.d. 4. Further recommendations to be made after the procedure has been performed. Thank you for allowing us to participate in this patient's care. Please do not hesitate to call with any questions in regard to this consult. <ELECTRONICALLY SIGNED> By: Fredi Valenzuela DO 08/29/19 0928 1211 [id number] Valenzuela DO /nt
[2019-08-29 12:59] VITALS: BP 123/72
--- NOTE | 2019-08-29 17:02 | NUR ---
ASSUMED PT CARE AT 0730. ASSESSMENT COMPLETED CHARTED. ABLE TO MAKE NEEDS KNOWN. UP TO RECLINER FOR LUNCH AND DINNER. NO C/O PAIN OR DISCOMFORT. C/O SOA, NOTIFIED PT NAPPING IN RECLINER AT THIS TIME. CALL LIGHT WITHIN REACH, FALL PRECAUTIONS IN PLACE. WILL CONTINUE TO MONITOR.
[2019-08-29 19:40] VITALS: BP 130/68
[2019-08-30 00:06] VITALS: BP 173/54
[2019-08-30 00:19] VITALS: BP 120/42
[2019-08-30 05:45] LABS: ABSOLUTE EOSINOPHILS 0.1 thou/uL (0.0-0.7); ABSOLUTE LYMPHOCYTES 0.8 thou/uL (0.8-5.3); ABSOLUTE MONOCYTES 1.4 thou/uL (0.0-1.2); ABSOLUTE NEUTROPHILS 10.9 thou/uL (1.6-8.1); BASOPHILS 0.2 %; HEMATOCRIT 21.7 % (37.0-47.0); HEMOGLOBIN 7.3 gm/dL (12.0-15.0); MCH 29.7 pg (26.0-34.0); MCHC 33.4 g/dL (28.0-37.0); MCV 88.8 fL (80.0-100.0); MONOCYTES 10.4 %; MPV 11.2 fl. (7.2-11.1); NUCLEATED RBCS 0 /100WBC; PLATELET COUNT* 90 thou/uL (150-400); POLYS 82.4 %; RBC 2.45 mil/uL (4.20-5.00); RDW-CV 16.4 % (10.5-14.5); WBC 13.3 thou/uL (4.0-11.0)
[2019-08-30 06:01] LABS: ALBUMIN 2.9 g/dL (3.4-5.0); CALCIUM 8.4 mg/dL (8.5-10.1); CREATININE 2.4 mg/dL (0.6-1.3); POTASSIUM 4.3 mmol/L (3.5-5.1); TOTAL BILIRUBIN 0.5 mg/dL (<0.1-1.0); TOTAL PROTEIN 6.2 g/dL (6.4-8.2)
--- NOTE | 2019-08-30 06:48 | NUR ---
PT CARE PT CARE ASSUMED AT 1930. SAT MAINTAINED IN O2. ALERT AND ORIENTED X4. CALL LIGHT WITHIN REACH AND BED IN LOW POSITION. DENIES PAIN AND SOB. HOURLY ROUNDING DONE FOR PT SAFETY.
[2019-08-30 08:00] VITALS: BP 127/61
--- NOTE | 2019-08-30 13:28 | NUR ---
CONTINUE TO FOLLOW, PT NOW INTERESTED IN SNF. DISCUSSED OPTIONS AND CHOSE [facility]. FAXED REFERRAL, AWAIT DECISION AND WILL NEED AUTH ALSO. UPDATED PT, NURSE AND
[2019-08-30 16:15] VITALS: BP 147/48
--- NOTE | 2019-08-30 19:30 | NUR ---
ASSUMED PT CARE AT 0730. ASSESSMENT COMPLETED CHARTED. ABLE TO MAKE NEEDS KNOWN. RESTING IN BED AT THIS TIME. UP IN CHAIR FROM LUNCH TO DINNER. DOYLE D/C AROUND 10 AM TODAY. 1 INCONTINENT EPISODE THEN WAS UNABLE TO URINATE. BLADDER SCAN WAS 480 AROUND 1800. NOTIFIED PHYSICAN AND NEW ORDER TO REINSERT DOYLE GIVEN. IMMEDIATELY DRAINED ABOUT 450. NO C/O PAIN OR DISCOMFORT. WILL CONTINUE TO MONITOR.
[2019-08-30 19:50] VITALS: BP 117/44
[2019-08-31 00:10] VITALS: BP 130/37
--- NOTE | 2019-08-31 04:51 | NUR ---
ASSUMED CARE OF PATIENT AT APPROX 1930. ALERT AND ORIENTED X4. ASSESSMENT COMPLETED AND CHARTED. VSS ON 3 LITERS. NO COMPLAINTS OF PAIN THIS SHIFT. PATIENT CONCERNED THAT SHE HAS NOT HAD A BM IN SEVERAL DAYS, UP TO THE COMMODE A FEW TIMES THIS EVENING WITH NO BM NOTED. NO OTHER COMPLAINTS. FALL PRECAUTIONS IN PLACE. CALL LIGHT IN REACH. HOURLY ROUNDS COMPLETED. WILL CONTINUE WITH PLAN OF CARE.
[2019-08-31 05:11] VITALS: BP 107/34
[2019-08-31 05:27] LABS: HEMATOCRIT 21.3 % (37.0-47.0); HEMOGLOBIN 7.2 gm/dL (12.0-15.0); MCH 29.8 pg (26.0-34.0); MCHC 33.8 g/dL (28.0-37.0); MCV 88.4 fL (80.0-100.0); NUCLEATED RBCS 0 /100WBC; PLATELET COUNT* 91 thou/uL (150-400); RBC 2.41 mil/uL (4.20-5.00); RDW-CV 16.7 % (10.5-14.5); WBC 14.5 thou/uL (4.0-11.0)
[2019-08-31 05:35] LABS: ALBUMIN 2.8 g/dL (3.4-5.0); CALCIUM 8.5 mg/dL (8.5-10.1); CREATININE 2.4 mg/dL (0.6-1.3); POTASSIUM 4.7 mmol/L (3.5-5.1); TOTAL BILIRUBIN 0.8 mg/dL (<0.1-1.0); TOTAL PROTEIN 6.2 g/dL (6.4-8.2)
--- NOTE | 2019-08-31 05:59 | NUR ---
PATIENT BEING TRANFERRED TO [facility] AT THIS TIME. REPORT GIVEN TO MARYJANE COWAN.
--- NOTE | 2019-08-31 06:27 | NUR ---
RECEIVED REPORT FROM FRANK CEJA. PT ARRIVED ONTO UNIT AT APPROX 0615 FROM TELE. SLEEPING IN RECLINER AT THIS TIME. INITIALLY DIFFICULT TO AROUSE BUT DID WAKE UP AND NOW BACK TO SLEEP. DOYLE CATHETER DD DARK YELLOW URINE. CALL LIGHT IN REACH. WILL CONTINUE TO MONITOR.
[2019-08-31 06:32] LABS: ABSOLUTE LYMPHOCYTES 0.4 thou/uL (0.8-5.3); ABSOLUTE MONOCYTES 0.4 thou/uL (0.0-1.2); ABSOLUTE NEUTROPHILS 13.6 thou/uL (1.6-8.1); ANISOCYTOSIS 1+; PLATELET ESTIMATE DECREASED
[2019-08-31 08:00] VITALS: BP 119/44
--- NOTE | 2019-08-31 10:43 | NUR ---
PT IS A/OX3 AND REALLY DROWSY.MED-SURG STATUS.PT REMAINS ON 3L O2 NC.NO C/O PAIN.PT HOME TRILOGY SET UP BY RT.IV ANTIBIOTICS GIVEN.PT RESTING IN RECLINER WITH CALL LIGHT AND FALL PRECAUTIONS IN PLACE.WILL CONTINUE TO MONITOR.
--- NOTE | 2019-08-31 11:07 | PATH ---
[facility] [address] [place] [address] PATHOLOGY RPT PROCEDURE Name: JENNYESTRELLASTARR MORALES Room: [address] IN .R.#: [id number] Admission: 08/17/19 Date of : 53 Discharge: Report #: [id number] Path Case #: [id number] [facility] Accession Number: [id number] . 01 Material submitted: . PART A: colon - PROXIMAL ASCENDING COLON POLYP. Modifiers: proximal, ascending PART B: colon - DESCENDING COLON POLYP. Modifiers: descending . 01 Clinical history: . None provided . 02 Diagnosis: A. Proximal ascending colon polyp: - Tubular adenoma, negative for high-grade dysplasia. . B. Descending colon polyp: - Tubular adenoma, negative for high-grade dysplasia. (FANY:pit 08/30/2019) QTP 08/30/2019 1524 Local . 02 Electronically signed: . Ric Mc MD, Pathologist NPI- [id number] . 01 Gross description: . A. The specimen is received in formalin, labeled "Estrella Alvarado, proximal ascending colon polyp" and consists of 2 fragments of pink-no tissue measuring 0.4 x 0.3 cm and 0.5 x 0.2 cm which are entirely submitted in A1. . B. The specimen is received in formalin, labeled "Jeffs, Estrella, descending colon polyp" and consists of a fragment of pink-no tissue measuring 0.4 x 0.3 x 0.2 cm which is entirely submitted in B1. (SDY; 08/27/2019) SYU/SYU 08/27/2019 1555 Local . 02 Pathologist provided ICD-10: D12.2, D12.4 . 02 CPT . 872984, 750948 Specimen Comment: A courtesy copy of this report has been sent to [phone] Specimen Comment: [id number], Specimen Comment: Report sent to ,DR DOMINGUEZ / DR ALEXANDER Performed at: [address] [place] [address] PATHOLOGY RPT PROCEDURE Name: ESTRELLA ALVARADO Room: [address] IN .R.#: [id number] Admission: 08/17/19 Date of : 53 Discharge: Report #: [id number] Path Case #: [id number] [address] [facility] [address], [place], [place] [id number] MD Gerardo Ramon MD Phone: [phone] Performed at: 02 [facility] [address], [place], [place] [id number] MD Ric Mc MD Phone: [phone]
--- NOTE | 2019-08-31 11:12 | NUR ---
Nutrition f/u: Wt's variable 260-290 lb range since admit. Physicain noted pt tolerating diet well. RFT's elevated. Educated by RD earlier in admit, no acute nutrition concners noted. Appears at low nutrition risk.
[2019-08-31 11:32] LABS: URINE BILIRUBIN NEGATIVE (Negative); URINE BLOOD 3+ (Negative); URINE CLARITY CLEAR; URINE COLOR YELLOW; URINE GLUCOSE-RANDOM NEGATIVE (Negative); URINE KETONES NEGATIVE (Negative); URINE LEUKOCYTES 1+ (Negative); URINE LEUKOCYTES-REFLEX 1+ (Negative); URINE NITRITE NEGATIVE (Negative); URINE NITRITE-REFLEX NEGATIVE (Negative); URINE PROTEIN 1+ (Negative); URINE SPECIFIC GRAVITY 1.015 (1.005-1.030); URINE UROBILINOGEN 0.2 E.U./dl (0.2-1.0)
[2019-08-31 11:55] LABS: BACTERIA 1-9 Few /HPF (None Seen); BACTERIA-REFLEX 1-9 Few /HPF (None Seen); CASTS None Seen /LPF (None Seen); CRYSTALS None Seen /LPF (None Seen); MUCUS None Seen strn/LPF (None Seen); SQUAMOUS 0-3 Few /LPF (0-3); URINE RBC >20 Many /HPF (0-2)
[2019-08-31 16:00] VITALS: BP 138/43
--- NOTE | 2019-08-31 16:25 | NUR ---
YOLIS contacted [facility] with [facility] admissions to follow up on status of insurance auth for pt to dc to SNF. No auth received yet. SW to continue to follow to assist with finalizing dc/snf placement. V ph [phone]
--- NOTE | 2019-08-31 17:48 | NUR ---
VSS.MED-SURG STATUS.PT REMAINS ON 3L O2 NC/ TRILOGY WHILE SLEEPING.NO C/O PAIN.IV ANTIBIOTICS GIVEN.DOYLE SECURE AND PATENT-UA COLLECTED.PT REFUSED ZANAFLEX AND STATES SHE DOESNT TAKE THAT MEDICATION.HOURLY ROUNDING COMPLETED FOR PT SAFETY.PT LEFT RESTING IN RECLINER WITH CALL LIGHT AND FALL PRECAUTIONS IN PLACE.WILL CONTINUE TO MONITOR FOR DURATION OF SHIFT.
[2019-09-01 05:31] LABS: ABSOLUTE EOSINOPHILS 0.1 thou/uL (0.0-0.7); ABSOLUTE LYMPHOCYTES 0.9 thou/uL (0.8-5.3); ABSOLUTE NEUTROPHILS 10.7 thou/uL (1.6-8.1); BASOPHILS 0.3 %; EOSINOPHILS 0.9 %; HEMATOCRIT 21.2 % (37.0-47.0); LYMPHOCYTES 7.1 %; MCH 29.5 pg (26.0-34.0); MCHC 33.1 g/dL (28.0-37.0); MCV 89.1 fL (80.0-100.0); MONOCYTES 8.2 %; MPV 11.3 fl. (7.2-11.1); NUCLEATED RBCS 0 /100WBC; PLATELET COUNT* 96 thou/uL (150-400); POLYS 83.5 %; RBC 2.38 mil/uL (4.20-5.00); RDW-CV 16.4 % (10.5-14.5); WBC 12.8 thou/uL (4.0-11.0)
[2019-09-01 05:43] VITALS: BP 122/62
[2019-09-01 06:08] LABS: ALBUMIN 2.9 g/dL (3.4-5.0); CALCIUM 8.7 mg/dL (8.5-10.1); CREATININE 2.6 mg/dL (0.6-1.3); POTASSIUM 4.9 mmol/L (3.5-5.1); TOTAL BILIRUBIN 0.6 mg/dL (<0.1-1.0); TOTAL PROTEIN 6.4 g/dL (6.4-8.2)
--- NOTE | 2019-09-01 07:04 | NUR ---
PATIENT SLEPT IN RECLINER ALL NIGHT. PT ENCOURAGED TO REPOSITION AND ALTERNATE PUTTING FOLDED BLANKET UNDER ONE SIDE THEN THE OTHER BUT REFUSED. PT WITH DOYLE TO DEPENDENT DRAIN WITH DARK YELLOW URINE. PT WITH 2100 BLOOD SUGAR AT 237; HUMALOG 237 UNITS GIVEN. PT DENIES PAIN AT THIS TIME. PT ON O2 @ 3 LITERS PER NASAL CANNULA AND ALSO HOME TRILOGY AT HS. PT DENIES PAIN AT THIS TIME. FREQUENTLY USED ITEMS AND CALL LIGHT WITHIN REACH. WILL CONTINUE TO MONITOR.
[2019-09-01 08:00] VITALS: BP 127/62
--- NOTE | 2019-09-01 08:04 | NUR ---
FAXED UPDATED CLINICALS TO [facility]. WILL FOLLOW UP TO CONFIRM RECEIPT.
[2019-09-01 12:08] LABS: % SATURATION 11 % (20-39); IRON 31 ug/dL (50-175)
[2019-09-01 14:00] VITALS: BP 148/58; BP 149/54; BP 149/55; BP 150/55; BP 151/56
[2019-09-01 16:00] VITALS: BP 132/68
--- NOTE | 2019-09-01 17:22 | NUR ---
YOLIS spoke with Lucinda from [facility] who provided confirmation of insurance providing auth for SNF and transport was arranged for pt to be able to dc to SNF at 3 pm today however then pt needed blood transfusion so nurse asked for transport to be later and that was rearranged. Then Dr Curry and Dr Estrada discussed pt medical need to remain in hospital one more day and Dr Estrada plans for pt to be able to dc to [facility] tomorrow; 09/02. YOLIS informed Lucinda of pt not ready to dc after all, and will follow up tomorrow to finalize safe dc to SNF.
--- NOTE | 2019-09-01 19:26 | NUR ---
ASSUMED PT CARE AT 0730. ASSESSMENT COMPLETED CHARTED. ABLE TO MAKE NEEDS KNOWN. UP IN RECLINER MOST OF THE DAY. UP TO COMMODE THIS AFTERNOON. FATULANCE NOTED. RESTING IN BED AT THIS TIME. GOT 1 UNIT OF BLOOD TODAY. NO C/O PAIN OR DISCOMFORT. WILL CONTINUE TO MONITOR.
[2019-09-01 19:27] LABS: HEMATOCRIT 24.8 % (37.0-47.0); HEMOGLOBIN 8.3 gm/dL (12.0-15.0)
[2019-09-01 19:40] VITALS: BP 142/49
[2019-09-02] VITALS: BP 106/26
[2019-09-02 03:55] LABS: ABSOLUTE BASOPHILS 0.1 thou/uL (0.0-0.2); ABSOLUTE EOSINOPHILS 0.1 thou/uL (0.0-0.7); ABSOLUTE LYMPHOCYTES 0.7 thou/uL (0.8-5.3); ABSOLUTE MONOCYTES 1.1 thou/uL (0.0-1.2); ABSOLUTE NEUTROPHILS 12.5 thou/uL (1.6-8.1); BASOPHILS 0.7 %; EOSINOPHILS 0.9 %; HEMATOCRIT 23.8 % (37.0-47.0); LYMPHOCYTES 4.9 %; MCH 29.4 pg (26.0-34.0); MCHC 33.5 g/dL (28.0-37.0); MCV 87.9 fL (80.0-100.0); MONOCYTES 7.6 %; MPV 11.2 fl. (7.2-11.1); NUCLEATED RBCS 0 /100WBC; PLATELET COUNT* 103 thou/uL (150-400); POLYS 85.9 %; RBC 2.71 mil/uL (4.20-5.00); RDW-CV 16.1 % (10.5-14.5); WBC 14.5 thou/uL (4.0-11.0)
[2019-09-02 04:13] LABS: CALCIUM 8.6 mg/dL (8.5-10.1); CREATININE 2.6 mg/dL (0.6-1.3); POTASSIUM 5.2 mmol/L (3.5-5.1)
[2019-09-02 05:30] VITALS: BP 142/52
--- NOTE | 2019-09-02 05:36 | NUR ---
PT ALERT AND ORIENTED. VSS ON 3L BEGINNING OF SHIFT. BP AT MIDNIGHT A LIL LOW AT 102.27. BP THIS AM BACK UP AT 142/52 ON 3L O2. RT ORDERED. ABD FOLD CLEANED WITH SOAP AND WATER. NYSTATIN POWDER AND ABX OINTMENT APPLIED TO FOLDS. 2+ EDEMA TO EXTREMETIES. FALL PRECAUTION IN PLACE. CALL LIGHT WITHIN REACH. HOURLY ROUNDINGS MADE. WILL CONTINUE TO MONITOR.
[2019-09-02 08:10] VITALS: BP 137/38
[2019-09-02 16:00] VITALS: BP 132/40
--- NOTE | 2019-09-02 17:22 | NUR ---
SW discussed dc planning with pt nurse who confirmed that pt in need of continued hospitalization due to iv iron needs. SW to continue to follow to assist with safe dc planning.
--- NOTE | 2019-09-02 17:25 | NUR ---
PT A&OX4 VSS. PT UP SBA W/WALKER TO RECLINER. PT DC DELAYED BY NEPHROLOGY FOR FURTHER TX. PT ON FUROSEMIDE BID, EDEMA NOTED. PT HAS DOYLE R/T URINARY RETENTION. PT ON 3L O2 BY NASAL CANNULA. PT HAS TRILOGY FOR HS USE. YEAST/REDNESS NOTED TO ABD FOLD. NYSTATIN IN ROOM AT BEDSIDE. BP RUNNING LOW INTERMITTENTLY. HYDRALAZINESKIN TEAR TO LFA, DRESSING C/D/I, OINTMENT IN ROOM AT BEDSIDE. PT IS ACCUCHECK, INSULIN ADMINISTERED DIRECTED. PT RESTS IN ROOM WITH CALL LIGHT IN REACH, WILL CONTINUE TO MONITOR
[2019-09-02 19:50] VITALS: BP 137/30
--- NOTE | 2019-09-02 22:02 | CON ---
[address] [address] CONSULTATION Name: CHHAYA ALVARADO Room: [address] IN .R.#: [id number] Admission: 08/17/19 Attend Phys: Flora Vásquez Discharge: Date of : 53 Report #: [id number] THIS REPORT FOR: //name// CC: Maria Esther Marshall Demar Isaac DATE OF SERVICE: 08/18/2019 NEPHROLOGY CONSULTATION CONSULTING PHYSICIAN: Maria Esther Marshall MD REASON FOR CONSULTATION: Acute kidney injury on chronic kidney disease stage 4. REASON FOR ADMISSION: Shortness of breath. HISTORY OF PRESENT ILLNESS: This is a 64-year-old female with past medical history of chronic kidney disease stage 4, baseline creatinine used to be 1.9-2 but recently 2.4-2.5, history of acute kidney injury, needing dialysis in her last admission in June, hypertension, chronic obstructive pulmonary disease, peripheral vascular disease, diabetes type 2, and other medical problems, came in because of increased body swelling and weight gain of 12-14 pounds over the past few days. She has a past medical history of congestive heart failure. Her ejection fraction in June was 60%-65% with normal diastolic dysfunction with right ventricular systolic pressure of 30 mmHg though. Her creatinine was 3.1 on admission and she had potassium of 6.5. Her home medications are showing that she was on Bactrim recently. It also looks like she was on Lasix. She is not able to provide me any review of systems right now. She was hard to awaken. She is up now, but she does not know where she is or what the date is today. She currently is not in any respiratory distress. Her potassium this morning is 6.0 and her creatinine is down to 3.0. When she was here in June, at that time, she had acute tubular necrosis and she needed dialysis with hypokalemia and hyperkalemia, but just 2 treatments, and after that she recovered. ALLERGIES: No known allergies. REVIEW OF SYSTEMS: Unable to obtain from the patient because of her mental status. HOME MEDICATIONS: Include sennosides/docusate, felodipine, Tessalon Perles, budesonide, montelukast, ipratropium/albuterol, nebulizer, hydralazine, and also looks like she was on Lasix 40 mg b.i.d. Home medication list also shows Bactrim 1 tablet p.o. b.i.d., albuterol, nitroglycerin, venlafaxine, Dale, pregabalin, paricalcitol, atorvastatin, clopidogrel, ranitidine, tizanidine, dulaglutide, linagliptin, duloxetine, [place] [address] CONSULTATION Name: CHHAYA ALVARADO Room: [address] IN .R.#: [id number] Admission: 08/17/19 Attend Phys: Flora Vásquez Discharge: Date of : 53 Report #: [id number] PAST MEDICAL AND SURGICAL HISTORY: Includes; 1. 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 Baseline creatinine used to be 1.9-2 but more recently, it has settled between 2.4 and 2.5. She needed dialysis once in June of this year because of hypokalemia and hyperkalemia. 2. Hyperlipidemia. 3. Hypertension. 4. Chronic obstructive pulmonary disease, sleep apnea, oxygen dependent. 5. Diabetes type 2. 6. section x2. 7. Tonsillectomy. 8. Hysterectomy. 9. Triple coronary artery bypass. 10. Cholecystectomy. 11. Tubal ligation. 12. Stent in the right leg, coronary artery disease. 13. Carotid endarterectomy. 14. L4-L5 surgery with metal. 15. Chronic renal insufficiency. 16. Congestive heart failure, chronic diastolic congestive heart failure. FAMILY HISTORY: No history of any kidney disease in the family. SOCIAL HISTORY: She states that she has stopped smoking. No recreational drug use. No use of alcohol. PHYSICAL EXAMINATION: VITAL SIGNS: Blood pressure is 132/51, temperature is 36.8, pulse rate was 74, respiratory rate was 19, and pulse oximetry was 97% on 3 liters of oxygen via nasal cannula. GENERAL: She is awake. She is not able to answer questions appropriately. HEENT: Head and eyes: Atraumatic, normocephalic; she has periorbital edema; normal conjunctivae. Ears, nose, and throat: Normal ears and nose. Mucous membranes are moist. NECK: No JVD. CHEST: Bilaterally diminished breath sounds, but no crackles heard posteriorly. CARDIOVASCULAR: S1, S2 normal. No murmurs. ABDOMEN: Soft, nondistended, nontender. LOWER EXTREMITIES: She does have about 2+ edema bilaterally, bilateral lower extremities, and some of this is chronic edema. NEUROLOGICAL FUNCTION: She is moving all her extremities, but she seems to be confused. PSYCHIATRIC: Not able to assess. LABORATORY DATA: Hemoglobin is 8.7. WBC is 14.3. Her sodium is 138, potassium is 6.0, BUN is 65, CO2 is 27, creatinine is 3.0, and glucose is 215. Other labs [place] [id number] CONSULTATION Name: CHHAYA ALVARADO Room: [address] IN ..#: [id number] Admission: 08/17/19 Attend Phys: Flora Vásquez Discharge: Date of : 53 Report #: [id number] are reviewed. IMAGING: Chest x-ray was reviewed. ASSESSMENT: 1. Acute kidney injury on chronic kidney disease stage 4. Baseline creatinine is more recently around 2.4-2.5. She has diabetic and hypertensive nephropathy; acute kidney injury with creatinine in 3s when she came in. This is in the setting of use of Lasix and Bactrim. Renal ultrasound will be checked and urinalysis is also pending. 2. Hyperkalemia, which is in the setting of use of Bactrim, acute on chronic kidney disease, and hyperglycemia. 3. Chronic diastolic congestive heart failure. She does not seem to be in exacerbation. 4. Elevated troponin; referring to primary team for management of that. 5. History of diabetes type 2. Blood glucose seems to be running high. 6. Hypertension. Blood pressure seems to be controlled. PLAN: 1. Check a bladder scan. If she is retaining urine, she is going to need a Dalton catheter. 2. I have stopped her Lasix for now. We will give her normal saline just 15 hours for a total of 12 hours to help with hyperkalemia and we will give her a push of Lasix an hour into the fluids to help with kaliuresis. Currently, there is no acute need for dialysis, but if potassium does not get better with medical management, she might need dialysis. We will check a renal ultrasound. We will check urinalysis. 3. Avoid nephrotoxic agents; try to keep a mean arterial pressure around 65-70. 4. Potassium has been ordered for 12:00 p.m. 5. She is to be on a renal diet. Thank you for this consultation. We will continue to follow along with you. About 35 minutes of critical care time was spent. This time was spent in chart review, placing orders, and care coordination. We will continue to follow. <ELECTRONICALLY SIGNED> By: Cheryl Mckenna MD 09/02/19 2202 1011 1352Achester Mckenna MD /nt
[2019-09-03 04:42] LABS: ABSOLUTE EOSINOPHILS 0.1 thou/uL (0.0-0.7); ABSOLUTE LYMPHOCYTES 0.6 thou/uL (0.8-5.3); ABSOLUTE MONOCYTES 1.3 thou/uL (0.0-1.2); ABSOLUTE NEUTROPHILS 14.1 thou/uL (1.6-8.1); BASOPHILS 0.3 %; EOSINOPHILS 0.5 %; HEMOGLOBIN 7.8 gm/dL (12.0-15.0); LYMPHOCYTES 3.5 %; MCHC 33.9 g/dL (28.0-37.0); MCV 88.4 fL (80.0-100.0); MONOCYTES 7.8 %; MPV 10.8 fl. (7.2-11.1); NUCLEATED RBCS 0 /100WBC; PLATELET COUNT* 111 thou/uL (150-400); POLYS 87.9 %
[2019-09-03 04:52] LABS: ALBUMIN 2.8 g/dL (3.4-5.0); CALCIUM 8.7 mg/dL (8.5-10.1); CREATININE 2.7 mg/dL (0.6-1.3); POTASSIUM 5.5 mmol/L (3.5-5.1); TOTAL BILIRUBIN 0.7 mg/dL (<0.1-1.0); TOTAL PROTEIN 6.3 g/dL (6.4-8.2)
--- NOTE | 2019-09-03 06:31 | NUR ---
PT ALERT AND ORIENTED. BP MED HELD DUE TO LOW DIASTOLIC. ABD FOLD WASHED AND NYSTATIN POWDER AND ABX OINMENT APPLIED. DOYLE IN PLACE. PT SLEPT WELL THIS SHIFT. CALL LIGHT WITHIN REACH. HOURLY ROUNDINGS MADE. FALL PRECAUTION IN PLACE. WILL CONTINUE TO MONITOR.
[2019-09-03 08:48] VITALS: BP 140/58
[2019-09-03 16:00] VITALS: BP 118/35
--- NOTE | 2019-09-03 17:23 | NUR ---
PT A&OX4 VSS. DIASTOLIC PRESSURE RUNNING LOW. ONGOING ISSUE. DISCUSSED WITH PROVIDER REGARDING NURSES REASON FOR INTERMITTENTLY HOLDING HYDRALAZINE. PT UP TO RECLINER. SBA W/WALKER. PT HAS DOYLE R/T DX RETENTION. YELLOW URINE VISIBLE IN COLLECTION BAG. PHYSICIAN DISCUSSED POSSIBLE DIALYSIS. PT REMAINS ON 3L O2 BY NC. IV IRON ADMINISTERED DIRECTED. LASIX ORDER CHANGED TO IV. PT RESTS IN ROOM WITH CALL LIGHT IN REACH. WILL CONTINUE TO MONITOR.
[2019-09-03 23:23] VITALS: BP 100/68
--- NOTE | 2019-09-04 03:54 | NUR ---
PATIENT SITTING IN RECLINER AT BEGINNING OF SHIFT AND ASSISTED TO BSC WITH USE OF WALKER. PT UNSUCCESSFUL WITH BOWEL MOVEMENT ATTEMPT. PT ON O2 @ 3 LITERS PER NASAL CANNULA. PT REFUSED HER CPAP AT NIGHT. PT WITH SALINE LOCK IN LT FOREARM. BLOOD SUGAR AT 2100 AT 244; HUMALOG 4 UNITS GIVEN. PT BACK IN BED AFTER COMMODE AND SLEPT ALL NIGHT. FREQUENTLY USED ITEMS AND CALL LIGHT WITHIN REACH. SIDERAILS UPX3. WILL CONTINUE TO MONITOR.
[2019-09-04 06:00] VITALS: BP 110/52
[2019-09-04 08:00] VITALS: BP 139/53
[2019-09-04 08:12] LABS: CALCIUM 8.9 mg/dL (8.5-10.1); CREATININE 2.9 mg/dL (0.6-1.3); MAGNESIUM 2.6 mg/dL (1.8-2.4); POTASSIUM 5.9 mmol/L (3.5-5.1)
--- NOTE | 2019-09-04 10:45 | NUR ---
PT ENCOURAGED TO TAKE A SHOWER. PT STOOD TO GET IN A WC THEN SAT ON HER KNEES ON FLOOR. PT ASSISTED BACK TO BED WITH MAX ASSIST. FAMILY NOTIFIED. SKIN TEAR TO RIGHT FOREARM BLEEDING,OPTIFOAM DRESSING APPLIED. ENCOURAGED PT TO CLEANUP LATER SHE HAS A YEAST INFECTION WITH A FOUL ODOR. DOYLE CATHETER LEAKING,WILL ADDRESS WHEN PT COME BACK FROM DIALYSIS LINE PLACEMENT
--- NOTE | 2019-09-04 18:00 | NUR ---
PT HAD DIALYSIS CATH PLACEMENT THIS AM. DIALYSIS THIS AFTERNOON.FAMILY AT AND UPDATED ON PLAN OF CARE. PT WEAK AND UNABLE TO AMBULATE WITHOUT ASSIST. PT TOLERATING PO WELL. DOYLE CATH DRAINING CLEAR YELLOW URINE. DOYLE OCASSIONALLY BECOMES KINKED D/T EDEMA ON PANNUS,FLOWS AFTER DOYLE REPOSITIONED. WILL LEAVE STAT LOCK OFF FOR NOW. PAIN WELL CONTROLLED. REMAINS ON O2@2L NC
[2019-09-04 18:05] VITALS: BP 145/42
--- NOTE | 2019-09-04 19:07 | NUR ---
UPON ENTERING ROOM PT ON BSC. DTR AT BS. ASKED PT HOW SHE GOT ON THE BSC DTR STATED THAT SHE GOT HER TO BSC AFTER TURNING BED ALARM OFF. INSTRUCTED PT AND DTR TO NOT ATTEMPT TO AMBULATE PT AND TO NOT TOUCH ALARMS THEY ARE IN PLACE FOR SAFETY. PT HAD BM THEN ASSISTED TO BED WITH SB ASSIST.
[2019-09-05] VITALS: BP 114/38
[2019-09-05 06:22] LABS: CALCIUM 8.9 mg/dL (8.5-10.1); CREATININE 2.3 mg/dL (0.6-1.3)
[2019-09-05 06:29] LABS: POTASSIUM 4.9 mmol/L (3.5-5.1)
[2019-09-05 10:00] VITALS: BP 139/99
[2019-09-05 16:00] VITALS: BP 137/48
--- NOTE | 2019-09-05 18:01 | NUR ---
ALERT AND ORIENTED X4. UP WITH 1 ASSIST AND WALKER. DENIES PAIN. HAS DOYLE CATHETER PATENT WITH CLOUDY FRANK URINE. DIALYSIS CATHETER DRESSING DRY AND INTACT RIGH UPPER CHEST. REMAINS ON O2 AT 3L/NC. HAD 2 SOFT FORMED STOOLS TODAY. PATIENT USING CALL LIGHT WITHIN REACH. BED ALARM AND CHAIR ALARM USED.
[2019-09-05 20:25] VITALS: BP 129/50
[2019-09-06 05:53] LABS: CALCIUM 8.3 mg/dL (8.5-10.1); CREATININE 2.7 mg/dL (0.6-1.3); POTASSIUM 4.8 mmol/L (3.5-5.1)
[2019-09-06 07:30] VITALS: BP 141/45
--- NOTE | 2019-09-06 10:22 | NUR ---
YOLIS communicated with Briseyda at [facility] and dc personal financial planner to fax updates so that [facility] can work on auth with [employer] again. Pt back on dialysis. SW to continue to follow to assist with finalizing safe dc plan.
--- NOTE | 2019-09-06 11:08 | NUR ---
FAXED CLINICAL UPDATES TO [facility]. [phone]; [phone]
[2019-09-06 15:08] LABS: HEPATITIS B SURFACE AG Negative (Negative)
[2019-09-06 17:00] VITALS: BP 120/50
--- NOTE | 2019-09-06 17:13 | NUR ---
PT A&OX4 VSS. PT TO DIALYSIS THIS AM. TUNNELED CATHETER TO UPPER R CHEST FOR DIALYSIS ACCESS. PT PEREZ DOYLE FOR URINARY RETENTION. PATENT, AND YELLOW URINE OBSERVED IN COLLECTION BAG. PT IS ACCUCHECK AND INSULIN ADMINISTERED INDICATED. PT HAS IV TO LAC, PATENT AND NO REDNESS NOTED AT SITE. IV IRON ADMINISTERED FOLLOWING RETURN FROM DIALYSIS. PT ON 3L O2 BY NASAL CANNULA. PT TO U/S THIS AFTERNOON FOR VEIN MAPPING. PT DENIES PAIN. PT RESTS ON CART WITH CALL LIGHT IN REACH. WILL CONTINUE TO MONITOR.
[2019-09-06 20:35] VITALS: BP 150/48
[2019-09-07 04:22] LABS: ABSOLUTE BASOPHILS 0.1 thou/uL (0.0-0.2); ABSOLUTE EOSINOPHILS 0.2 thou/uL (0.0-0.7); ABSOLUTE LYMPHOCYTES 0.8 thou/uL (0.8-5.3); ABSOLUTE NEUTROPHILS 8.2 thou/uL (1.6-8.1); BASOPHILS 0.5 %; EOSINOPHILS 1.6 %; HEMATOCRIT 21.9 % (37.0-47.0); HEMOGLOBIN 7.5 gm/dL (12.0-15.0); LYMPHOCYTES 7.8 %; MCH 30.9 pg (26.0-34.0); MCHC 34.4 g/dL (28.0-37.0); MCV 89.9 fL (80.0-100.0); MONOCYTES 9.8 %; MPV 10.8 fl. (7.2-11.1); NUCLEATED RBCS 0 /100WBC; PLATELET COUNT* 106 thou/uL (150-400); POLYS 80.3 %; RBC 2.43 mil/uL (4.20-5.00); WBC 10.3 thou/uL (4.0-11.0)
[2019-09-07 04:40] LABS: ALBUMIN 2.6 g/dL (3.4-5.0); CALCIUM 8.3 mg/dL (8.5-10.1); CREATININE 2.5 mg/dL (0.6-1.3); POTASSIUM 4.8 mmol/L (3.5-5.1); TOTAL BILIRUBIN 0.8 mg/dL (<0.1-1.0); TOTAL PROTEIN 5.8 g/dL (6.4-8.2)
--- NOTE | 2019-09-07 05:39 | NUR ---
PT SLEPT OFF AND ON OVERNIGHT. LAC SL. O2 3L. HS ACCUCHECK 205, INSULIN GIVEN. AM LABS DRAWN. R CHEST TUNNELED DIALYSIS CATH. L AC SL. BRUSING TO ARMS, DRSG TO R ARM SKIN TEAR, R HERNANDEZ.DOYLE DRAINING SMALL AMOUNT DARK YELLOW URINE WITH BROWN SEDIMENT. FOLDS UNDER BREASTS, PANNUS AND SUBHASH AREA CLEANSED, ANTIFUNGAL CREAM AND NYSTATIN POWDER APPLIED AT HS. UP WITH ROBERT, FLETCHER AND SBA. ABLE TO USE CALL LITE AND MAKE NEEDS KNOWN. AM LABS.
[2019-09-07 08:09] VITALS: BP 131/83
--- NOTE | 2019-09-07 16:46 | NUR ---
YOLIS faxed referral information to [facility] Dialysis admissions. YOLIS discussed with Dr Estrada and with OT to resume therapies towards SNF at dc. YOLIS asked dc project planner to faxed updated referral information to [facility] to begin process again for insurance auth. DC pending acceptance to [facility], insurance auth, and acceptance to OP dialysis.
[2019-09-07 17:20] VITALS: BP 126/39
[2019-09-07 17:53] VITALS: BP 163/55
--- NOTE | 2019-09-07 17:56 | NUR ---
PATIENT AWAKE IN CHAIR WITH FAMILY AT BEDSIDE. ALL SAFETY MEASURES MAINTAINED. PATIENT DENIES FURTHER NEEDS AT THIS TIME.
[2019-09-07 21:00] VITALS: BP 136/51
[2019-09-08 05:50] LABS: CALCIUM 8.5 mg/dL (8.5-10.1); CREATININE 2.8 mg/dL (0.6-1.3); POTASSIUM 5.2 mmol/L (3.5-5.1)
--- NOTE | 2019-09-08 06:09 | NUR ---
PATIENT SLEPT MOST OF THE NIGHT. IV REMAINS SALINE LOCKED. DOYLE REMAINS TO DEPENDENT DRAIN. WILL CONTINUE TO MONITOR.
[2019-09-08 07:30] VITALS: BP 144/57
--- NOTE | 2019-09-08 10:06 | NUR ---
FAXED CLINICAL UPDATES WITH OT & PT TO [facility]. WILL CONFIRM WITH CAILY/INTAKE THAT SHE RECEIVED.
--- NOTE | 2019-09-08 12:45 | NUR ---
ASSUMED PT CARE AT O800, AOX4, UP WITH ASSIST, USES WALKER. O2 SAT 90'S 2L NC. PT COMPLAINS OF CHEST PAIN. DR HANLEY /CARDIOLOGY RECONSULTED. EKG DONE ORDERED. PT DIALYSIS ON GOING. PT ON FLUID RESTRICTION PER NEPHROLOGY. DOYLE CATHETER DISCONTINUE. L LIMB ALERTM. FOR URINE RESIDUAL MONITOR. PT DARK URINE NOTED. PT ACCU CHECK, Q2 TURN, HOURLY ROUNDING, CALL LIGHT WITHIN REACH, WILL CONTINUE TO MONITOR.
[2019-09-08] MEDS ORDERED: IRON325 PO (13:31)
[2019-09-08] MEDS ORDERED: NEPHRO-VITE TA0.8 MG PO (13:31)
[2019-09-08] MEDS ORDERED: MELATONIN5 M1 PO (13:31)
[2019-09-08] MEDS ORDERED: LOPRESSOR25 PO (13:31)
[2019-09-08] MEDS ORDERED: LANTUS100 UNIT/M SUBQ (13:31)
[2019-09-08] MEDS ORDERED: PANTOPRAZOLE SO40 M1 PO (13:31)
--- NOTE | 2019-09-08 14:15 | NUR ---
YOLIS received confirmation from [facility] admissions and spoke with Eneida from [facility] that [facility]; arrive at 6 am and then subsequently arrive at 6:30 am. YOLIS spoke with Briseyda at [facility] who had already provided approval and insurance provided auth for pt to admit to SNF today. YOLIS spoke with Dr Berger and pt nurse is aware. YOLIS faxed dc orders/summary/med list to [facility] SNF and ride arranged for between 4:30 and 5:00 pm. Chart copied for continuation of care. YOLIS spoke with pt about dc plans and called pt meraryr Sofi who are both in agreement with plan.
--- NOTE | 2019-09-08 14:18 | EKG ---
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: : [id number] Requested By: Med Berger Order Number: [id number] Chandrika MD: Konrad Paulino Measurements Intervals [place] Rate: 86 P: 79 NH: 166 QRS: 21 QRSD: 114 T: 82 QT: 394 QTc: 472 Interpretive Statements Sinus rhythm poor r wave progression Ventricular trigeminy Borderline intraventricular conduction delay Compared to ECG 08/17/2019 09:30:48 T-wave abnormality no longer present Electronically Signed On 09-08-2019 14:17:41 VEHICLE SAFETY INSPECTOR by Konrad Paulino [email or web address] <ELECTRONICALLY SIGNED> By: Konrad Paulino MD, FAC 09/08/19 1417 1157 1157 Konrad Paulino MD, [facility] /EPI
[2019-09-08 16:10] VITALS: BP 93/77
--- NOTE | 2019-09-08 18:12 | NUR ---
DISCHARGED PLAN DISCUSSED WITH PT. GIVE REPORT TO [facility] NURSE. LEFT THE UNIT 1809.
--- NOTE | 2019-09-10 10:14 | OP ---
[address] [address] OPERATIVE REPORT Name: CHHAYA ALVARADO Room: [address] IN M.R.#: [id number] Admission: 08/17/19 Attend Phys: Flora Vásquez Discharge: 09/08/19 Date of : 53 Report #: [id number] THIS REPORT FOR: //name// CC: Maria Esther Isaac DATE OF SERVICE: 09/04/2019 PREOPERATIVE DIAGNOSIS: End-stage renal disease with need for hemodialysis. POSTOPERATIVE DIAGNOSIS: End-stage renal disease with need for hemodialysis. PROCEDURES: 1. Ultrasound of right internal jugular vein. 2. Placement of right internal jugular vein tunneled dialysis catheter. INDICATIONS: The patient is a 64-year-old woman with end-stage renal disease, requires access for urgent hemodialysis. We will plan on placing a tunneled catheter for that purpose. OPERATING SURGEON: Sacha Bautista MD ANESTHESIA: 1% lidocaine locally. ESTIMATED BLOOD LOSS: 20 mL. SPECIMENS: No specimens. FINDINGS: Ultrasound shows the right internal jugular vein to be widely patent. After placement of the catheter, the catheter ports easily flushed and aspirated. The fluoroscopy shows no evidence of pneumothorax. The catheter tips are in the atrium. DESCRIPTION OF PROCEDURE: The patient was brought to the IR suite and prepped and draped in the usual fashion. Time-out was done. Ultrasound was then done of the right internal jugular vein and images were saved. 1% lidocaine was used to anesthetize the skin and subcutaneous tissues over the right anterior jugular vein along the tunnel be made on the chest wall. An 18-gauge needle was used under ultrasound guidance to enter the internal jugular vein. Then, a guidewire placed. Incision made at the J-wire exit site. A 6-Micronesian sheath was placed over the J-wire. A second J-wire was introduced down into the superior vena cava. Then, the dilators were used to dilate up the tract. Then, the Spire RetrO catheter [id number] was placed over both wires and the distal tip of the catheter was positioned in the atrium. The catheters were then tunneled to exit on the chest wall using the tunneling device with the kit. The extensions were placed on the catheter. The catheter ports easily flushed [place] [address] OPERATIVE REPORT Name: JENNYCHHAYA CARMEN Room: [address]#: [id number] Admission: 08/17/19 Attend Phys: Flora Vásquez Discharge: 09/08/19 Date of : 53 Report #: [id number] catheter was packed with heparinized saline. The catheter was secured to the chest wall with 3-0 Prolene suture. The small skin incision at the neck closed with 3-0 Monocryl, Steri-Strips and then an antimicrobial dressing was applied. The patient tolerated the procedure well without problem and was taken back to her room in stable condition. The catheter may be used for dialysis. <ELECTRONICALLY SIGNED> By: Zachery Hanks MD 09/10/19 1014 1139 1206Sacha Bautista MD /nt
== END 2019-09-08 18:10 | DRG 673 ==
LOC: M.ERS 08:57 → M.2W 10:31 → M.TBA-ER 10:31 → M.2W 17:26 → M.3W 08-31 06:09
PROVIDERS: Emergency Medicine Emergency Medical Services; Internal Medicine; Internal Medicine Cardiovascular Disease; Internal Medicine Gastroenterology; Internal Medicine Nephrology; ADMIT Internal Medicine
PROC: 0DBM8ZX Excision of Descending Colon, Via Natural or Artificial Opening Endoscopic, Diagnostic (ICD-10-PCS; principal; 2019-08-17)
PROC: 0DBK8ZX Excision of Ascending Colon, Via Natural or Artificial Opening Endoscopic, Diagnostic (ICD-10-PCS; principal; 2019-08-17)
PROC: 0DJ08ZZ Inspection of Upper Intestinal Tract, Via Natural or Artificial Opening Endoscopic (ICD-10-PCS; 2019-08-24)
PROC: 02HV33Z Insertion of Infusion Device into Superior Vena Cava, Percutaneous Approach (ICD-10-PCS; 2019-09-04)
PROC: 0JH63XZ Insertion of Tunneled Vascular Access Device into Chest Subcutaneous Tissue and Fascia, Percutaneous Approach (ICD-10-PCS; 2019-09-04)
DX: N17.0 Acute kidney failure with tubular necrosis (principal); R65.11 Systemic inflammatory response syndrome (SIRS) of non-infectious origin with acute organ dysfunction; G93.41 Metabolic encephalopathy; K57.31 Diverticulosis of large intestine without perforation or abscess with bleeding; J69.0 Pneumonitis due to inhalation of food and vomit; I50.33 Acute on chronic diastolic (congestive) heart failure; J96.90 Respiratory failure, unspecified, unspecified whether with hypoxia or hypercapnia; K26.4 Chronic or unspecified duodenal ulcer with hemorrhage; I13.2 Hypertensive heart and chronic kidney disease with heart failure and with stage 5 chronic kidney disease, or end stage renal disease; J44.1 Chronic obstructive pulmonary disease with (acute) exacerbation; E44.1 Mild protein-calorie malnutrition; Z68.42 Body mass index [BMI] 45.0-49.9, adult; E66.2 Morbid (severe) obesity with alveolar hypoventilation; B37.81 Candidal esophagitis; D53.9 Nutritional anemia, unspecified; N18.6 End stage renal disease; Z99.2 Dependence on renal dialysis; E11.22 Type 2 diabetes mellitus with diabetic chronic kidney disease; E78.5 Hyperlipidemia, unspecified; I25.10 Atherosclerotic heart disease of native coronary artery without angina pectoris; F17.200 Nicotine dependence, unspecified, uncomplicated; E87.5 Hyperkalemia; R79.89 Other specified abnormal findings of blood chemistry; E11.65 Type 2 diabetes mellitus with hyperglycemia; R74.8 Abnormal levels of other serum enzymes; E66.9 Obesity, unspecified; E11.51 Type 2 diabetes mellitus with diabetic peripheral angiopathy without gangrene; K59.09 Other constipation; M17.0 Bilateral primary osteoarthritis of knee; K64.4 Residual hemorrhoidal skin tags; I65.22 Occlusion and stenosis of left carotid artery; M94.0 Chondrocostal junction syndrome [Tietze]; I25.119 Atherosclerotic heart disease of native coronary artery with unspecified angina pectoris; Z99.81 Dependence on supplemental oxygen; Z79.4 Long term (current) use of insulin; Z90.710 Acquired absence of both cervix and uterus; Z79.899 Other long term (current) drug therapy; Z95.1 Presence of aortocoronary bypass graft; Z90.49 Acquired absence of other specified parts of digestive tract; Z95.820 Peripheral vascular angioplasty status with implants and grafts; Z98.1 Arthrodesis status

== ENCOUNTER 2019-09-16 10:51 | Inpatient (IN) | payer OTHER, MEDICAID ==
[~2019-09-16] VITALS: Ht 162.6 cm; Wt 126.9 kg
--- NOTE | ~2019-09-16 | EKG ---
[place] [address] ELECTROCARDIOGRAM REPORT Name: CHHAYA ALVARADO Room: [place] [address] ADM IN [facility].#: [id number] Admission: 09/16/19 Attend Phys: Marco Estrada Discharge: Date of : 53 Date of Service: 09/16/19 1124 Report #: [id number] THIS REPORT FOR: cc: Demar Isaac Steve T. DO Epiphany, Epiphany MD ~ THIS REPORT FOR: //name// [facility] ED Test Date: 2019-09-16 Test Time: 11:24:21 Pat Name: CHHAYA ALVARADO Department: Room: [facility] Gender: F Feather Trimmer: ALVARO : 1955 Requested By: Anatoliy Gomez Order Number: [id number] MD: Measurements Intervals [place] Rate: 82 P: 72 CA: 169 QRS: 15 QRSD: 121 T: 108 QT: 394 QTc: 461 Interpretive Statements Sinus rhythm Ventricular trigeminy Nonspecific intraventricular conduction delay Consider anterior infarct Nonspecific T abnormalities, lateral leads No previous ECG available for comparison [email or web address] By: 1124 23 Epiphany EpiphanyMD /VIOLET
[~2019-09-16 10:51] MED LIST changes: +BACTRIM DS TAB1 EAC1 PO; +COZAAR 25 MG TA25 M1 PO; +IRON325 PO; +LANTUS100 UNIT/M SUBQ; +LOPRESSOR25 PO; +MELATONIN5 M1 PO; +NEPHRO-VITE TA0.8 MG PO; +PANTOPRAZOLE SO40 M1 PO
[2019-09-16 10:53] VITALS: BP 145/60
[2019-09-16 11:11] LABS: ABSOLUTE BASOPHILS 0.1 thou/uL (0.0-0.2); ABSOLUTE EOSINOPHILS 0.1 thou/uL (0.0-0.7); ABSOLUTE LYMPHOCYTES 1.6 thou/uL (0.8-5.3); ABSOLUTE MONOCYTES 1.5 thou/uL (0.0-1.2); ABSOLUTE NEUTROPHILS 6.9 thou/uL (1.6-8.1); EOSINOPHILS 0.9 %; HEMATOCRIT 27.3 % (37.0-47.0); HEMOGLOBIN 9.2 gm/dL (12.0-15.0); LYMPHOCYTES 15.4 %; MCH 30.1 pg (26.0-34.0); MCHC 33.5 g/dL (28.0-37.0); MCV 89.9 fL (80.0-100.0); MONOCYTES 14.6 %; MPV 10.6 fl. (7.2-11.1); NUCLEATED RBCS 0 /100WBC; PLATELET COUNT* 139 thou/uL (150-400); POLYS 68.1 %; RBC 3.04 mil/uL (4.20-5.00); WBC 10.2 thou/uL (4.0-11.0)
[2019-09-16] MEDS ORDERED: ZUPLENZ4 MG PO (11:15)
[2019-09-16 11:20] LABS: CALCIUM 8.1 mg/dL (8.5-10.1); CREATININE 1.9 mg/dL (0.6-1.3)
[2019-09-16 11:21] LABS: APTT 33.2 Seconds (25.0-31.3); INR 1.1; PROTIME 11.4 Seconds (9.20-11.50)
[2019-09-16 11:33] LABS: ALBUMIN 2.7 g/dL (3.4-5.0); CK-MB MASS 3.8 ng/mL (<0.5-3.6); TOTAL BILIRUBIN 0.7 mg/dL (<0.1-1.0); TOTAL PROTEIN 6.3 g/dL (6.4-8.2)
[2019-09-16 15:34] VITALS: BP 154/118
[2019-09-16 16:20] VITALS: BP 157/70
[2019-09-16 20:04] VITALS: BP 141/53
[2019-09-17 00:16] VITALS: BP 137/83
[2019-09-17 02:24] LABS: BE 2.1 mmol/L (-2 to +3); PCO2 40.8 mmHg (35.0-45.0); PO2 74.4 mmHg (75.0-100.0); pH 7.431 (7.340-7.450)
[2019-09-17 05:34] VITALS: BP 172/50
--- NOTE | 2019-09-17 06:38 | CON ---
[address] [address] CONSULTATION Name: CHHAYA ALVARADO Room: [address] IN M.R.#: [id number] Admission: 09/16/19 Attend Phys: Gabrielle Kent Discharge: Date of : 53 Report #: [id number] THIS REPORT FOR: //name// cc: Demar Isaac Steve T. DO ~ THIS REPORT FOR: //name// CC: Demar Estrada DATE OF SERVICE: 09/16/2019 INDICATION: Elevated troponin. HISTORY OF PRESENT ILLNESS: The patient is a 64-year-old white female who is well known to our service. She was admitted with altered mental status after dialysis today. She was recently started on hemodialysis. She has gross volume overload. She has a history of coronary artery disease and had 3-vessel coronary artery bypass grafting at [facility] [place] [facility] [place]. She has a chronically elevated troponin. She has increasing shortness of breath, but no chest pain prior to this admission. EKG shows sinus rhythm with premature ventricular contractions without acute ST-segment abnormality. Initial troponin was 0.4, followed by 0.3. PAST MEDICAL HISTORY: 1. Coronary artery disease, status post coronary artery bypass grafting remotely. 2. Peripheral arterial disease with previous lower extremity stenting. 3. Toe amputation, right foot for nonhealing ulcers. 4. Type 2 diabetes mellitus. 5. Hypertension. 6. Dyslipidemia. PAST SURGICAL HISTORY: 1. Coronary artery bypass grafting. 2. Tonsillectomy. 3. x 2. 4. Hysterectomy. 5. Cholecystectomy. 6. Tubal ligation. 7. Left carotid endarterectomy. 8. Lumbar 4-5 surgery with metal placement. ALLERGIES: None known. FAMILY HISTORY: The patient's father had myocardial infarction. SOCIAL HISTORY: The patient smokes a pack of cigarettes daily. She does not drink alcohol. HOME MEDICATIONS: Albuterol 2 puffs q.4-6 hours as needed, atorvastatin 80 mg at bedtime, Pulmicort inhaler 0.5 b.i.d., Plavix 75 mg daily, iron sulfate 325 mg b.i.d., Nephro-Jluis tablets 1 daily, hydralazine 50 mg t.i.d., NovoLog 15 units subcutaneously before meals, Lantus 20 units subcutaneously at bedtime, Combivent inhaler q.6 hours p.r.n., melatonin 5 mg 2 tablets at bedtime p.r.n., metoprolol tartrate 25 mg b.i.d., Singulair 10 mg daily, Nitrostat sublingual p.r.n., Zofran q.4 hours p.r.n., Protonix 40 mg daily, Lyrica 150 mg b.i.d., Effexor XR 75 mg daily. PHYSICAL EXAMINATION: VITAL SIGNS: Blood pressure 154/118, pulse is in the 80s and regular. GENERAL: This is a moderately obese white female, in no distress. Mood and affect appropriate. HEENT: Extraocular muscles intact. Mucous membranes moist. NECK: Reveals a thick neck with jugular venous distention. CHEST: Reveals coarse breath sounds throughout. CARDIAC: Reveals a distant S1 and S2 without gallop or murmur. ABDOMEN: Reveals a protuberant abdomen that is soft, bowel sounds present. EXTREMITIES: Arms and legs show 2-3+ edema. DIAGNOSTIC DATA: Chest x-ray shows worsening pulmonary vascular congestion. LABORATORY DATA: Labs are reviewed. Sodium 138, potassium 3.0, chloride 101, bicarbonate 33, BUN 24, creatinine 1.9, serum glucose 100, AST 87. Lipase 341, total bilirubin 0.7, direct bilirubin 0.1, calcium 8.1, phosphorus 5.1, magnesium 1.8, alkaline phosphatase 426, ALT 69. GGTP 235, total protein 6.3, albumin 2.7. EGFR 27. Troponins 0.46 and 0.34. NT-proBNP 21,601. White blood cell count 10.2, hemoglobin 9.2, platelet count of 139,000. IMPRESSION AND RECOMMENDATIONS: 1. Acute on chronic diastolic heart failure. We will need to attempt increased volume removal with dialysis. 2. Chronically elevated troponin. The patient is not having any symptoms to suggest acute coronary syndrome. Continue conservative management. 3. Hypertension, increasing hydralazine to 100 mg t.i.d. Continue current regimen. Otherwise as outlined above. 4. Coronary artery disease, presently stable. She is not having any symptoms to suggest angina. 5. Tobacco use, cessation advised. 6. History of dyslipidemia. Continue atorvastatin at current dose. 7. End-stage renal disease, on dialysis per primary physician and Nephrology. <ELECTRONICALLY SIGNED> By: Sacha Castellon MD, FACC 09/17/19 0638 1635 [id number] Castellon MD, FACC /nt
[2019-09-17 08:00] VITALS: BP 156/65
[2019-09-17 09:37] LABS: HEMOGLOBIN 8.6 gm/dL (12.0-15.0); MCH 29.6 pg (26.0-34.0); MCV 89.8 fL (80.0-100.0); MPV 11.3 fl. (7.2-11.1); RBC 2.9 mil/uL (4.20-5.00); RDW-CV 17.8 % (10.5-14.5)
[2019-09-17 09:43] LABS: ALBUMIN 2.5 g/dL (3.4-5.0); CALCIUM 8.2 mg/dL (8.5-10.1); CREATININE 2.7 mg/dL (0.6-1.3); TOTAL BILIRUBIN 0.7 mg/dL (<0.1-1.0); TOTAL PROTEIN 5.2 g/dL (6.4-8.2)
[2019-09-17 09:44] LABS: POTASSIUM 4.2 mmol/L (3.5-5.1)
[2019-09-17 16:31] VITALS: BP 150/40
[2019-09-17 21:45] VITALS: BP 195/75
[2019-09-18] VITALS: BP 101/62
[2019-09-18 04:00] VITALS: BP 139/46
[2019-09-18 06:11] LABS: ALBUMIN 2.3 g/dL (3.4-5.0); CALCIUM 8.1 mg/dL (8.5-10.1); CREATININE 2.3 mg/dL (0.6-1.3); TOTAL BILIRUBIN 0.7 mg/dL (<0.1-1.0); TOTAL PROTEIN 5.5 g/dL (6.4-8.2)
[2019-09-18 07:31] LABS: HEMATOCRIT 23.9 % (37.0-47.0); HEMOGLOBIN 8.1 gm/dL (12.0-15.0); MCH 30.1 pg (26.0-34.0); MCV 88.7 fL (80.0-100.0); MPV 11.3 fl. (7.2-11.1); RBC 2.7 mil/uL (4.20-5.00); RDW-CV 17.8 % (10.5-14.5); WBC 9.4 thou/uL (4.0-11.0)
[2019-09-18 12:00] VITALS: BP 135/44
[2019-09-18 14:18] VITALS: BP 148/47
[2019-09-18 16:00] VITALS: BP 148/52
[2019-09-18 20:00] VITALS: BP 108/58
[2019-09-19 01:10] VITALS: BP 131/56
[2019-09-19 04:45] VITALS: BP 134/58
[2019-09-19 08:07] LABS: HEMATOCRIT 27.3 % (37.0-47.0); HEMOGLOBIN 8.9 gm/dL (12.0-15.0); MCH 29.5 pg (26.0-34.0); MCHC 32.7 g/dL (28.0-37.0); MCV 90.4 fL (80.0-100.0); MPV 10.3 fl. (7.2-11.1); RBC 3.02 mil/uL (4.20-5.00); RDW-CV 18.2 % (10.5-14.5); WBC 8.2 thou/uL (4.0-11.0)
[2019-09-19 08:10] VITALS: BP 156/53
[2019-09-19 08:29] LABS: ALBUMIN 2.7 g/dL (3.4-5.0); CALCIUM 8.2 mg/dL (8.5-10.1); CREATININE 2.4 mg/dL (0.6-1.3); POTASSIUM 5.3 mmol/L (3.5-5.1); TOTAL BILIRUBIN 0.6 mg/dL (<0.1-1.0); TOTAL PROTEIN 6.3 g/dL (6.4-8.2)
[2019-09-19 12:38] VITALS: BP 156/51
[2019-09-19 16:00] VITALS: BP 119/47
[2019-09-19 18:51] LABS: URINE BLOOD TRACE (Negative); URINE CLARITY SL CLOUDY; URINE COLOR DARK YELLOW; URINE GLUCOSE-RANDOM NEGATIVE (Negative); URINE KETONES TRACE (Negative); URINE LEUKOCYTES-REFLEX NEGATIVE (Negative); URINE NITRITE-REFLEX NEGATIVE (Negative); URINE PROTEIN 2+ (Negative); URINE SPECIFIC GRAVITY >= 1.030 (1.005-1.030); URINE UROBILINOGEN 0.2 E.U./dl (0.2-1.0)
[2019-09-19 18:52] LABS: ICTOTEST (BILI CONFIRMATORY) Negative (Negative); URINE BILIRUBIN 1+ (Negative)
[2019-09-19 19:00] LABS: SQUAMOUS >10 Many /LPF (0-3)
[2019-09-19 19:01] LABS: HYALINE CASTS >10 Many /LPF (None Seen)
[2019-09-19 19:03] LABS: AMORPHOUS URATES Few /LPF (None Seen); BACTERIA-REFLEX >30 Many /HPF (None Seen)
[2019-09-19 19:04] LABS: URINE RBC 0-2 Rare /HPF (0-2)
[2019-09-19 20:00] VITALS: BP 137/49
[2019-09-20 00:19] VITALS: BP 152/61
[2019-09-20 04:07] VITALS: BP 150/80
[2019-09-20 08:00] VITALS: BP 135/54
[2019-09-20 15:39] VITALS: BP 125/63
[2019-09-20 20:00] VITALS: BP 152/42
[2019-09-20 23:43] VITALS: BP 127/49
[2019-09-21 04:20] VITALS: BP 125/52
[2019-09-21 08:15] VITALS: BP 136/49
[2019-09-21 08:54] LABS: CALCIUM 8.2 mg/dL (8.5-10.1); CREATININE 2.5 mg/dL (0.6-1.3)
[2019-09-21 09:07] LABS: POTASSIUM 4.3 mmol/L (3.5-5.1)
[2019-09-21 16:00] VITALS: BP 149/40
[2019-09-21 20:00] VITALS: BP 130/46
[2019-09-22 00:21] VITALS: BP 130/45
[2019-09-22] MEDS ORDERED: NYAMYC15 GM TOP (11:35)
[2019-09-22 12:00] VITALS: BP 129/42
[2019-09-22] MEDS ORDERED: MEDROL DOSPAK21 TA1 PO (13:09)
--- NOTE | 2019-09-26 10:11 | CON ---
[address] [address] CONSULTATION Name: CHHAYA ALVARADO Room: [address] IN .R.#: [id number] Admission: 09/16/19 Attend Phys: Gabrielle Kent Discharge: 09/22/19 Date of : 53 Report #: [id number] THIS REPORT FOR: //name// cc: Demar Isaac Steve T. DO ~ THIS REPORT FOR: //name// CC: Demar Estrada DATE OF SERVICE: 09/17/2019 REQUESTING PHYSICIAN: Marco Estrada DO REASON FOR CONSULTATION: End-stage renal disease, fluid overload. HISTORY OF PRESENT ILLNESS: The patient is a 64-year-old female admitted to the hospital on 09/16 with complaints of shortness of breath, not feeling well. She did have her dialysis yesterday. Normally gets dialysis on Friday, , Friday schedule, but presented to the Emergency Room with some shortness of breath and altered mental status. Chest x-ray revealed that she is volume overloaded. She is getting extra dialysis today. PAST MEDICAL HISTORY: 1. Diabetes mellitus type 2. 2. End-stage renal disease due to diabetic nephropathy. 3. Coronary artery disease. 4. Chronic obstructive pulmonary disease. 5. Obesity. FAMILY HISTORY: Noncontributory. SOCIAL HISTORY: No current tobacco or alcohol abuse. REVIEW OF SYSTEMS: Positive for the symptoms as I mentioned earlier, otherwise all systems reviewed and negative. MEDICATIONS: Reviewed. PHYSICAL EXAMINATION: GENERAL: Examined on dialysis. VITAL SIGNS: Blood pressure 156/65, heart rate 97, afebrile. HEENT: Pupils are round. NECK: Fatty. LUNGS: With coarse breath sounds bilaterally. CARDIOVASCULAR: Distant heart tones. ABDOMEN: Obese, soft. LABORATORY DATA: Lab report revealed hemoglobin of 8.6. Serum sodium 140, potassium 4.2. IMAGING STUDY: Chest x-ray revealed pulmonary edema. ASSESSMENT: 1. End-stage renal disease, had dialysis yesterday, but still very fluid overloaded, was admitted for that and now getting extra dialysis. 2. History of obesity. 3. Coronary artery disease. 4. Diabetes mellitus type 2. PLAN: Dialysis today. Next dialysis will be tomorrow. We will try to remove 3 liters a day and 3 liters tomorrow. <ELECTRONICALLY SIGNED> By: Brijesh Hillman MD 09/26/19 1011 1053 1203Alexjulissa Hillman MD /nt
== END 2019-09-22 15:45 | DRG 291 ==
LOC: M.ERS 10:51 → M.2W 13:25 → M.TBA-ER 13:25 → M.2W 15:40
PROVIDERS: Emergency Medicine Emergency Medical Services; Internal Medicine; ADMIT Internal Medicine
PROC: 5A09357 Assistance with Respiratory Ventilation, Less than 24 Consecutive Hours, Continuous Positive Airway Pressure (ICD-10-PCS; principal; 2019-09-17)
PROC: 5A1D70Z Performance of Urinary Filtration, Intermittent, Less than 6 Hours Per Day (ICD-10-PCS; principal; 2019-09-17)
PROC: 5A09357 Assistance with Respiratory Ventilation, Less than 24 Consecutive Hours, Continuous Positive Airway Pressure (ICD-10-PCS; 2019-09-18)
PROC: 5A1D70Z Performance of Urinary Filtration, Intermittent, Less than 6 Hours Per Day (ICD-10-PCS; 2019-09-18)
PROC: 5A1D70Z Performance of Urinary Filtration, Intermittent, Less than 6 Hours Per Day (ICD-10-PCS; 2019-09-20)
PROC: 5A1D70Z Performance of Urinary Filtration, Intermittent, Less than 6 Hours Per Day (ICD-10-PCS; 2019-09-21)
DX: I13.2 Hypertensive heart and chronic kidney disease with heart failure and with stage 5 chronic kidney disease, or end stage renal disease (principal); G93.41 Metabolic encephalopathy; I50.33 Acute on chronic diastolic (congestive) heart failure; N18.6 End stage renal disease; I47.1 Supraventricular tachycardia; Z68.42 Body mass index [BMI] 45.0-49.9, adult; E78.5 Hyperlipidemia, unspecified; J44.9 Chronic obstructive pulmonary disease, unspecified; I25.10 Atherosclerotic heart disease of native coronary artery without angina pectoris; E11.51 Type 2 diabetes mellitus with diabetic peripheral angiopathy without gangrene; E66.9 Obesity, unspecified; E87.6 Hypokalemia; E11.22 Type 2 diabetes mellitus with diabetic chronic kidney disease; D69.6 Thrombocytopenia, unspecified; R74.0 Nonspecific elevation of levels of transaminase and lactic acid dehydrogenase [LDH]; E11.40 Type 2 diabetes mellitus with diabetic neuropathy, unspecified; K76.9 Liver disease, unspecified; D63.8 Anemia in other chronic diseases classified elsewhere; Z99.2 Dependence on renal dialysis; Z99.81 Dependence on supplemental oxygen; Z90.710 Acquired absence of both cervix and uterus; Z90.49 Acquired absence of other specified parts of digestive tract; Z95.820 Peripheral vascular angioplasty status with implants and grafts; Z87.891 Personal history of nicotine dependence; Z95.1 Presence of aortocoronary bypass graft; Z89.421 Acquired absence of other right toe(s); Z71.6 Tobacco abuse counseling; Z79.82 Long term (current) use of aspirin; Z79.899 Other long term (current) drug therapy

== ENCOUNTER → 2019-10-08 | Day surgery (SDC) | payer OTHER, MEDICAID ==
[~2019-10-08] MED LIST changes: +MEDROL DOSPAK21 TA1 PO; +NORCO 5-325 TA1 EAC1 PO; +NYAMYC15 GM TOP; +ONDANSETRON HCL4 M2 PO; +ZUPLENZ4 MG PO
[2019-10-08 10:16] LABS: HEMATOCRIT 29.8 % (37.0-47.0); HEMOGLOBIN 9.8 gm/dL (12.0-15.0); MCHC 32.9 g/dL (28.0-37.0); MCV 91.4 fL (80.0-100.0); MPV 9.7 fl. (7.2-11.1); RBC 3.26 mil/uL (4.20-5.00); RDW-CV 19.6 % (10.5-14.5); WBC 14.1 thou/uL (4.0-11.0)
[2019-10-08 10:30] LABS: CALCIUM 9.1 mg/dL (8.5-10.1); CREATININE 1.7 mg/dL (0.6-1.3); POTASSIUM 3.8 mmol/L (3.5-5.1)
[2019-10-08 10:35] LABS: ALBUMIN 3.2 g/dL (3.4-5.0); TOTAL BILIRUBIN 0.7 mg/dL (<0.1-1.0); TOTAL PROTEIN 6.3 g/dL (6.4-8.2)
--- NOTE | 2019-10-10 11:23 | OP ---
[address] [address] OPERATIVE REPORT Name: CHHAYA ALVARADO Room: [facility]#: [id number] Admission: 10/08/19 Attend Phys: Zachery Hanks MD Discharge: Date of : 53 Report #: [id number] THIS REPORT FOR: //name// cc: Demar Isaac Steve T. DO ~ THIS REPORT FOR: //name// CC: Александр Isaac DATE OF SERVICE: 10/08/2019 PREOPERATIVE DIAGNOSIS: End-stage renal disease. POSTOPERATIVE DIAGNOSIS: End-stage renal disease. PROCEDURE: Left upper extremity AV fistula. SURGEON: Zachery Hanks MD CAFE ASSISTANT: Amirah Culver. COMPLICATIONS: None. ESTIMATED BLOOD LOSS: 10 mL. ANESTHESIA: Local sedation. INDICATIONS FOR PROCEDURE: The patient is a very pleasant 64-year-old white female well known to our service. We previously treated her peripheral vascular disease as well as her carotid artery stenosis. She presents with acute on chronic renal failure and is now on dialysis. My partner, Dr. Bautista, has placed a tunneled dialysis catheter, which she is currently using. She needs a more long-term access and she is here for fistula placement today. Informed consent was obtained from the patient with risks including but not limited to bleeding, infection, need for further surgery, pain, , heart attack, stroke, steal syndrome. The patient understood these risks and was agreeable to proceed. DESCRIPTION OF PROCEDURE: The patient was taken to the OR and placed in supine position. Sedation was initiated. Left arm was prepped and draped. Timeout was performed. I infused 10 mL of 1% lidocaine throughout the procedure for local anesthetic. I created a transverse incision in the patient's left forearm just distal to the antecubital fossa. Sharp and blunt dissections were carried down to the brachial artery. This was controlled [place] [address] OPERATIVE REPORT Name: JENNYCHHAYA CARMEN Room: [facility].#: [id number] Admission: 10/08/19 Attend Phys: Zachery Hanks MD Discharge: Date of : 53 Report #: [id number] vessel loops. Sharp and blunt dissections were carried down to cephalic vein, which was noted to be of adequate caliber. This was controlled as well. I heparinized the patient at this point in time, ligated the distal cephalic vein, spatulated the free ends proximally. Ligation of the distal vein was carried out with a 2-0 silk suture ligature. I transposed the vein over on to the artery and ligated multiple side branches using silk ties and clips. I created a longitudinal arteriotomy in the brachial artery and created end-to-side anastomosis using a running 6-0 Prolene suture. At the completion of anastomosis, there was adequate hemostasis. Excellent blood flow into the cephalic vein running up the arm with palpable thrill. She maintained a palpable radial pulse. I irrigated the wound bed with antibiotic saline. Controlled bleeding as needed with electrocautery, ties, clips and Derrek, closed the wound in multiple layers using 2-0 Vicryl, 3-0 Vicryl and 4-0 Monocryl for the skin. Incision was dressed with Dermabond. The patient tolerated the procedure well and was taken alert and awake to recovery room in good condition with palpable thrill in her fistula and a palpable pulse at her wrist. <ELECTRONICALLY SIGNED> By: Dakota Marks DO 10/10/19 1123 1323 [id number] Hanks MD /alona
== END | disposition home or self-care (01) ==
LOC: M.SUR 09:43
PROVIDERS: Surgery Vascular Surgery
DX: I13.2 Hypertensive heart and chronic kidney disease with heart failure and with stage 5 chronic kidney disease, or end stage renal disease (principal); E11.22 Type 2 diabetes mellitus with diabetic chronic kidney disease; N18.6 End stage renal disease; I50.30 Unspecified diastolic (congestive) heart failure; I25.10 Atherosclerotic heart disease of native coronary artery without angina pectoris; I73.9 Peripheral vascular disease, unspecified; J44.9 Chronic obstructive pulmonary disease, unspecified; E78.5 Hyperlipidemia, unspecified; G47.33 Obstructive sleep apnea (adult) (pediatric); M86.9 Osteomyelitis, unspecified; Z98.890 Other specified postprocedural states; Z79.899 Other long term (current) drug therapy; Z95.1 Presence of aortocoronary bypass graft; Z90.49 Acquired absence of other specified parts of digestive tract; Z90.710 Acquired absence of both cervix and uterus; Z98.51 Tubal ligation status

== ENCOUNTER → 2020-01-21 | Outpatient (CLI) | payer OTHER, MEDICAID | LOC: M.MRI 11:07 | DX: I73.9 Peripheral vascular disease, unspecified (principal); M54.16 Radiculopathy, lumbar region; M16.0 Bilateral primary osteoarthritis of hip; G89.29 Other chronic pain ==

== ENCOUNTER → 2020-02-21 | Outpatient (CLI) | payer OTHER, MEDICAID ==
[~2020-02-21] MED LIST changes: +PHOSLO667 MG PO; +PLAVIX 75 MG TA75 MG PO; +PULMICORT0.5 MG/22 INH; +RENAGEL800 MG PO; +TOPROL XL25 MG PO
== END ==
LOC: M.LAB 08:00 → M.SUR 02-24 09:55 → EDSTATUS 02-24 14:32 → M.SUR 02-24 15:29
PROVIDERS: ATTEND Surgery Vascular Surgery
DX: Z01.818 Encounter for other preprocedural examination (principal); Z11.59 Encounter for screening for other viral diseases; N18.6 End stage renal disease

== ENCOUNTER → 2020-03-03 | Outpatient (CLI) | payer OTHER, MEDICAID ==
[~2020-03-03] MED LIST changes: +LORCET 5-325 M1 EACH PO
== END | disposition home or self-care (01) ==
LOC: M.RAD 08:58
PROVIDERS: ATTEND Orthopaedic Surgery
DX: M25.551 Pain in right hip (principal); E11.22 Type 2 diabetes mellitus with diabetic chronic kidney disease; N18.6 End stage renal disease; I25.10 Atherosclerotic heart disease of native coronary artery without angina pectoris; J44.9 Chronic obstructive pulmonary disease, unspecified; I50.9 Heart failure, unspecified; Z98.890 Other specified postprocedural states; Z79.899 Other long term (current) drug therapy

== ENCOUNTER → 2020-03-16 | Day surgery (SDC) | payer OTHER, MEDICAID ==
[2020-03-16 11:39] LABS: HEMATOCRIT 39.2 % (37.0-47.0); HEMOGLOBIN 13.3 gm/dL (12.0-15.0); MCH 32.6 pg (26.0-34.0); MCHC 33.9 g/dL (28.0-37.0); MPV 10.8 fl. (7.2-11.1); RBC 4.09 mil/uL (4.20-5.00); RDW-CV 15.6 % (10.5-14.5)
[2020-03-16 11:46] LABS: CALCIUM 9.3 mg/dL (8.5-10.1); CREATININE 1.8 mg/dL (0.6-1.3); POTASSIUM 3.6 mmol/L (3.5-5.1)
--- NOTE | 2020-03-23 15:13 | OP ---
[address] [address] OPERATIVE REPORT Name: CHHAYA ALVARADO Room: [facility]#: [id number] Admission: 03/16/20 Attend Phys: Zachery Hanks MD Discharge: Date of : 53 Report #: [id number] THIS REPORT FOR: //name// cc: Demar Isaac Steve T. DO ~ THIS REPORT FOR: //name// CC: Zachery Isaac DATE OF SERVICE: 03/16/2020 PREOPERATIVE DIAGNOSIS: End-stage renal disease. POSTOPERATIVE DIAGNOSIS: End-stage renal disease. PROCEDURE: Left upper extremity brachiocephalic AV fistula transposition and revision. SURGEON: Zachery Hanks MD. OFFICE BOOKKEEPER: Brian Suárez DO. COMPLICATIONS: None. ESTIMATED BLOOD LOSS: Minimal. ANESTHESIA: Local sedation. COMPLICATIONS: None. INDICATIONS FOR PROCEDURE: The patient is a very pleasant 65-year-old white female with end-stage renal disease. She is currently on dialysis through a tunneled dialysis catheter. I previously placed a left arm brachiocephalic AV fistula. Due to her body habitus, the vein runs deep and requires transposition. Her fistula has an excellent thrill within it. Informed consent was obtained from the patient with risks including but not limited to bleeding, infection, pain, , heart attack, stroke, steal syndrome. The patient understood these risks and was agreeable to proceed. DESCRIPTION OF PROCEDURE: The patient was taken to the OR and placed in supine position. Sedation was initiated. A timeout was performed. I infused a 50:50 mix of 1% lidocaine and 0.25% Marcaine throughout the procedure for local anesthetic. I created a longitudinal incision from the patient's antecubital fossa up to the shoulder. Sharp and blunt dissections were carried down to cephalic vein. This was dissected out circumferentially [place] [address] OPERATIVE REPORT Name: CHHAYA ALVARADO Room: [facility]#: [id number] Admission: 03/16/20 Attend Phys: Zachery Hanks MD Discharge: Date of : 53 Report #: [id number] side branches with silk suture and clips. Vein was then transposed up above the deep fascia. I irrigated the wound bed with antibiotic saline. I used electrocautery, ties and clips as well as Derrek to control bleeding. We closed the deep layer behind the vein using a running 2-0 Vicryl suture. We then closed the skin directly over the vein using a running 3-0 Stratafix suture. Incision was dressed with Dermabond. There was an excellent thrill within the fistula right below the skin upon completion of the procedure. The patient was taken alert and awake to recovery room in good condition. <ELECTRONICALLY SIGNED> By: Zachery Hanks MD 03/23/20 1513 1425 1551RMD kenroy Otoole
== END | disposition home or self-care (01) ==
LOC: M.SUR 08:07
PROVIDERS: ATTEND Surgery Vascular Surgery
DX: E11.22 Type 2 diabetes mellitus with diabetic chronic kidney disease (principal); N18.6 End stage renal disease; I25.10 Atherosclerotic heart disease of native coronary artery without angina pectoris; J44.9 Chronic obstructive pulmonary disease, unspecified; Z98.890 Other specified postprocedural states; Z11.59 Encounter for screening for other viral diseases; Z79.899 Other long term (current) drug therapy; Z99.2 Dependence on renal dialysis

== ENCOUNTER → 2020-12-04 | Outpatient (CLI) | payer OTHER, MEDICAID ==
[2020-12-04 12:27] LABS: HEMATOCRIT 31.1 % (37.0-47.0); HEMOGLOBIN 10.1 gm/dL (12.0-15.0); MCH 31.5 pg (26.0-34.0); MCHC 32.5 g/dL (28.0-37.0); MCV 96.8 fL (80.0-100.0); MPV 9.7 fl. (7.2-11.1); RBC 3.22 mil/uL (4.20-5.00); RDW-CV 16.7 % (10.5-14.5); WBC 13.8 thou/uL (4.0-11.0)
[2020-12-04 12:44] LABS: ALBUMIN 3.4 g/dL (3.4-5.0); CALCIUM 8.8 mg/dL (8.5-10.1); CREATININE 3.5 mg/dL (0.6-1.3); POTASSIUM 3.7 mmol/L (3.5-5.1); TOTAL BILIRUBIN 0.5 mg/dL (<0.1-1.0); TOTAL PROTEIN 6.5 g/dL (6.4-8.2)
[2020-12-05 02:06] LABS: GLYCOHEMOGLOBIN (HGB A1C) 6.3 % (4.8-5.6)
== END ==
LOC: M.LAB 12:08 → M.CT 13:30
DX: I51.7 Cardiomegaly (principal); E04.1 Nontoxic single thyroid nodule; I25.10 Atherosclerotic heart disease of native coronary artery without angina pectoris; J98.11 Atelectasis; E11.22 Type 2 diabetes mellitus with diabetic chronic kidney disease; N18.6 End stage renal disease; Z99.2 Dependence on renal dialysis

== ENCOUNTER → 2020-12-05 | Outpatient (CLI) | payer OTHER, MEDICAID | LOC: M.LAB 11:54 | DX: E04.1 Nontoxic single thyroid nodule (principal) ==

== ENCOUNTER → 2020-12-06 | Outpatient (CLI) | payer OTHER, MEDICAID | LOC: M.ULTRA 15:39 | DX: E04.2 Nontoxic multinodular goiter (principal) ==

== ENCOUNTER → 2020-12-15 | Outpatient (CLI) | payer OTHER, MEDICAID ==
--- NOTE | 2020-12-19 10:07 | PATH ---
[address] [address] PATHOLOGY RPT PROCEDURE Name: CHHAYA ALVARADO Room: [facility]#: [id number] Admission: 12/15/20 Date of : 53 Discharge: Report #: [id number] Path Case #: [id number] Note [facility] Accession Number: [id number] TESTS RESULT FLAG UNITS REF RANGE LAB Clinician Provided Cytology Information No. of containers..01 Other (Miscellaneous) Source: RIGHT THYROID NODULE DIAGNOSIS: RIGHT THYROID NODULE, IMAGE-GUIDED FNA: NEGATIVE FOR MALIGNANT CELLS. BETHESDA CATEGORY II. SPECIMEN CONSISTS OF BENIGN FOLLICULAR CELLS, HEMOSIDERIN-LADEN MACROPHAGES, COLLOID, AND BLOOD. THIS PATTERN IS CONSISTENT WITH A BENIGN FOLLICULAR NODULE. THIS INTERPRETATION INCLUDES EVALUATION OF A CELL BLOCK. Pathologist ICD10: 02 E04.1 Signed out by: 02 Ric Mc MD, Pathologist NPI- [id number] Performed by: Angela Ba, Filling Carrier ([facility]) Gross description: 01 20ML, CLEAR RED, 4FX 4AD /LCS 12/16/2020 1242 Local FLAG LEGEND: L-Low Normal,H-High Normal,LL-Alert Low,HH-Alert High <-Panic Low,>-Panic High,A-Abnormal,AA-Critical Abnormal Performed at: [address] [place] [address] Festus Chan MD, 02 [facility] [address] [place] [address] Ric Mc MD, Performed at: [address], [place], [place] [id number] MD Festus Chan MD Phone: [phone]
== END | disposition home or self-care (01) ==
LOC: M.ULTRA 08:07
DX: E04.2 Nontoxic multinodular goiter (principal); E11.22 Type 2 diabetes mellitus with diabetic chronic kidney disease; N18.6 End stage renal disease; D63.1 Anemia in chronic kidney disease; I50.9 Heart failure, unspecified; I25.10 Atherosclerotic heart disease of native coronary artery without angina pectoris; I73.9 Peripheral vascular disease, unspecified; M86.9 Osteomyelitis, unspecified; Z98.890 Other specified postprocedural states; Z79.899 Other long term (current) drug therapy

== ENCOUNTER 2021-01-05 10:00 | Emergency (ER) | payer OTHER, MEDICAID ==
[~2021-01-05] VITALS: Ht 162.6 cm; Wt 90.7 kg
[2021-01-05] MEDS ORDERED: LIDODERM1 EACH TOP (11:32)
[2021-01-05] MEDS ORDERED: VOLTAREN GEL 1100 G2 TOP (11:32)
[2021-01-05 11:36] VITALS: BP 140/38
== END 2021-01-05 11:39 | disposition home or self-care (01) ==
LOC: M.ERS 10:00
DX: R07.81 Pleurodynia (principal); R06.89 Other abnormalities of breathing; E11.22 Type 2 diabetes mellitus with diabetic chronic kidney disease; I13.0 Hypertensive heart and chronic kidney disease with heart failure and stage 1 through stage 4 chronic kidney disease, or unspecified chronic kidney disease; N18.4 Chronic kidney disease, stage 4 (severe); I50.30 Unspecified diastolic (congestive) heart failure; E11.51 Type 2 diabetes mellitus with diabetic peripheral angiopathy without gangrene; J44.9 Chronic obstructive pulmonary disease, unspecified; I25.10 Atherosclerotic heart disease of native coronary artery without angina pectoris; Z99.2 Dependence on renal dialysis; Z98.61 Coronary angioplasty status; Z90.89 Acquired absence of other organs; M19.90 Unspecified osteoarthritis, unspecified site; Z98.51 Tubal ligation status; Z98.890 Other specified postprocedural states; Z90.49 Acquired absence of other specified parts of digestive tract; Z79.899 Other long term (current) drug therapy; Z79.4 Long term (current) use of insulin; Z87.891 Personal history of nicotine dependence

== ENCOUNTER → 2021-01-09 | Outpatient (CLI) | payer OTHER, MEDICAID ==
[~2021-01-09] MED LIST changes: +LIDODERM1 EACH TOP; +VOLTAREN GEL 1100 G2 TOP
== END ==
LOC: M.MRI 13:00
PROVIDERS: ATTEND Podiatrist Foot & Ankle Surgery
DX: M19.072 Primary osteoarthritis, left ankle and foot (principal); M86.9 Osteomyelitis, unspecified; L03.116 Cellulitis of left lower limb

== ENCOUNTER → 2021-02-23 | Outpatient (CLI) | payer OTHER, MEDICAID | LOC: M.MRI 14:09 | PROVIDERS: ATTEND Podiatrist Foot & Ankle Surgery | DX: M19.072 Primary osteoarthritis, left ankle and foot (principal); M86.172 Other acute osteomyelitis, left ankle and foot; L03.116 Cellulitis of left lower limb; M25.475 Effusion, left foot; M00.9 Pyogenic arthritis, unspecified; M79.89 Other specified soft tissue disorders; R60.0 Localized edema ==

== ENCOUNTER 2021-05-02 16:01 | Emergency (ER) | payer OTHER, MEDICAID ==
[~2021-05-02] VITALS: Ht 162.6 cm; Wt 87.5 kg
[2021-05-02] MEDS ORDERED: PIPERACIL-TA3.375 G1 IV (16:19)
[2021-05-02] MEDS ORDERED: HEPARIN 1010 UNIT/1 IV (16:19)
[2021-05-02 16:56] VITALS: BP 144/37
== END 2021-05-02 16:59 | disposition home or self-care (01) ==
LOC: M.ERS 16:01
DX: Z48.01 Encounter for change or removal of surgical wound dressing (principal); M79.675 Pain in left toe(s); J44.9 Chronic obstructive pulmonary disease, unspecified; I25.10 Atherosclerotic heart disease of native coronary artery without angina pectoris; E78.5 Hyperlipidemia, unspecified; E11.22 Type 2 diabetes mellitus with diabetic chronic kidney disease; I13.0 Hypertensive heart and chronic kidney disease with heart failure and stage 1 through stage 4 chronic kidney disease, or unspecified chronic kidney disease; N18.4 Chronic kidney disease, stage 4 (severe); I50.30 Unspecified diastolic (congestive) heart failure; Z90.49 Acquired absence of other specified parts of digestive tract; Z90.89 Acquired absence of other organs; Z90.711 Acquired absence of uterus with remaining cervical stump; Z98.890 Other specified postprocedural states; Z98.1 Arthrodesis status; Z89.412 Acquired absence of left great toe; Z99.2 Dependence on renal dialysis; Z79.4 Long term (current) use of insulin; Z79.899 Other long term (current) drug therapy; Z79.2 Long term (current) use of antibiotics; Z87.891 Personal history of nicotine dependence

== ENCOUNTER → 2021-05-21 | Outpatient (CLI) | payer OTHER, MEDICAID ==
[~2021-05-21] MED LIST changes: +HEPARIN 1010 UNIT/1 IV; +PIPERACIL-TA3.375 G1 IV
[2021-05-21 10:46] LABS: CREATININE 4.9 mg/dL (0.6-1.3)
== END ==
LOC: M.RAD 07:33 → M.ULTRA 07:33
DX: Z12.31 Encounter for screening mammogram for malignant neoplasm of breast (principal); N28.1 Cyst of kidney, acquired; R10.9 Unspecified abdominal pain; R16.0 Hepatomegaly, not elsewhere classified

== ENCOUNTER → 2021-06-06 | Outpatient (CLI) | payer OTHER, MEDICAID | LOC: M.ULTRA 10:32 | DX: T14.8XXA Other injury of unspecified body region, initial encounter (principal); X58.XXXA Exposure to other specified factors, initial encounter; Y93.89 Activity, other specified; Y92.89 Other specified places as the place of occurrence of the external cause; Y99.8 Other external cause status ==